=== PATIENT | female | born 1950 | race Caucasian/White ===

== ENCOUNTER 2016-07-20 14:08 | Inpatient (IN) | payer MEDICARE, OTHER ==
[2016-07-20] MEDS ORDERED: ASPIRIN 81 MG TABLET, CHEWABLE PO ONE (14:30)
[2016-07-20] MEDS ORDERED: PREDNISONE 20 MG TABLET PO ONE (14:31)
[2016-07-20] MEDS ORDERED: IPRATROPIUM/ALBUTEROL 0.5-2.5 MG/3 ML AMPUL NEB ONE ×3 (14:31→19:11)
--- NOTE | 2016-07-20 14:31 | ER Document Report ---
ED Medical Screen (RME) - General Stated Complaint: DIFFICULTY BREATHING,CHEST PAIN Mode of Arrival: Wheelchair Information source: Patient Notes: Patient complains of chest pain that started yesterday. Patient reports cough and difficulty breathing. Patient is worried about possible pneumonia. Patient complains of abdominal tenderness that she attributes to coughing. hx: COPD, hypertension, diabetes I have greeted and performed a rapid initial assessment of this patient. A comprehensive ED assessment and evaluation of the patient, analysis of test results and completion of the medical decision making process will be conducted by additional ED providers. TRAVEL OUTSIDE OF THE [place] IN LAST 30 DAYS: No - Related Data Allergies/Adverse Reactions: sulfamethoxazole [From ] Allergy (Verified 07/20/16 14:28) trimethoprim [From Janra] Allergy (Verified 07/20/16 14:28) morphine Adverse Reaction (Verified 07/20/16 14:28) Past Medical History - Past Medical History Cardiac Medical History: Reports: Hx Hypertension Pulmonary Medical History: Reports: Hx Asthma, Hx COPD Endocrine Medical History: Reports: Hx Diabetes Mellitus Type 2 GI Medical History: Reports: Hx Gastroesophageal Reflux Disease Musculoskeltal Medical History: Reports Hx Arthritis Psychiatric Medical History: Reports: Hx Anxiety, Hx Depression Past Surgical History: Reports: Hx Appendectomy, Hx Cholecystectomy, Hx Genitourinary Surgery, Hx Tonsillectomy, Hx Tubal Ligation - Immunizations Hx Diphtheria, Pertussis, Tetanus Vaccination: Yes Physical Exam - Vital signs Vitals: Temp Pulse Resp BP Pulse Ox 98.9 F 98 22 H 219/85 H 91 L 07/20/16 14:07/20/16 14:07/20/16 14:07/20/16 14:07/20/16 14:25 - Respiratory Respiratory status: No respiratory distress Chest status: Pain with cough Breath sounds: Wheezing Course - Vital Signs Vital signs: Temp Pulse Resp BP Pulse Ox 98.9 F 100 22 H 219/85 H 93 07/20/16 14:07/20/16 14:07/20/16 14:26 07/20/16 14:07/20/16 14:26
[2016-07-20 15:36] LABS: ABSOLUTE BASOPHILS # (AUTO) 0.1 10^3/uL (0.0-0.2); ABSOLUTE EOSINOPHILS # (AUTO) 0.1 10^3/uL (0.0-0.6); ABSOLUTE MONOCYTES (AUTO) 0.6 10^3/uL (0.1-1.4); ABSOLUTE NEUT (AUTO) 4.6 10^3/uL (1.7-8.2); BASOPHILS % (AUTO) 1.1 % (0-2); EOSINOPHILS % (AUTO) 0.9 % (0-6); HEMATOCRIT 46.1 % (36.0-47.0); HEMOGLOBIN 15.2 g/dL (12.0-15.5); HGB HCT DIFFERENCE -0.5; LYMPHOCYTES % (AUTO) 15.1 % (13-45); MEAN CORPUSCULAR HEMOGLOBIN 28.7 pg (27.0-33.4); MEAN CORPUSCULAR VOLUME 87 fl (80-97); RED BLOOD COUNT 5.31 10^6/uL (3.72-5.28); RED CELL DISTRIBUTION WIDTH 13.7 % (11.5-14.0); SEGMENTED NEUTROPHILS % (AUTO) 72.9 % (42-78); WHITE BLOOD COUNT 6.4 10^3/uL (4.0-10.5)
[2016-07-20 15:55] LABS: ALANINE AMINOTRANSFERASE 24 U/L (9-52); ALBUMIN 3.8 g/dL (3.5-5.0); ALKALINE PHOSPHATASE 88 U/L (38-126); ANION GAP 13 (5-19); ASPARTATE AMINO TRANSFERASE 22 U/L (14-36); BILIRUBIN,TOTAL 0.6 mg/dL (0.2-1.3); BLOOD UREA NITROGEN 14 mg/dL (7-20); CALCIUM 9.2 mg/dL (8.4-10.2); CARBON DIOXIDE 28 mmol/L (22-30); CHLORIDE 94 mmol/L (98-107); CREATINE KINASE 91 U/L (30-135); CREATININE RESULT 0.66 mg/dL (0.52-1.25); LIPASE 52.8 U/L (23-300); MAGNESIUM 1.8 mg/dL (1.6-2.3); SODIUM 134.6 mmol/L (137-145); TOTAL PROTEIN 6.2 g/dL (6.3-8.2)
[2016-07-20 16:07] LABS: CREATINE KINASE MB 1.14 ng/mL (<4.55); GLUCOSE 442 mg/dL (75-110); TROPONIN I 0.013 ng/mL
[2016-07-20 16:30] LABS: APPEARANCE,URINE CLEAR; GLUCOSE, URINE 500 mg/dL (NEGATIVE)
[2016-07-20 16:31] LABS: BILIRUBIN,URINE NEGATIVE (NEGATIVE); KETONES,URINE NEGATIVE (NEGATIVE); LEUKOCYTE ESTERASE,URINE TRACE (NEGATIVE); NITRITE,URINE POSITIVE (NEGATIVE); PROTEIN,URINE NEGATIVE (NEGATIVE); URINE SPECIFIC GRAVITY 1.029; UROBILINOGEN,URINE NEGATIVE mg/dL (<2.0)
[2016-07-20 16:32] LABS: HYALINE CASTS, URINE 0-1 /LPF; RBC,URINE RARE /HPF
[2016-07-20 16:33] LABS: BACTERIA,URINE 3+ /HPF
[2016-07-20] MEDS ORDERED: INSULIN REG, HUMAN 100 UNIT/ML 3 ML VIAL (PYX) SUBCUT ONE (17:14)
--- NOTE | 2016-07-20 17:23 | ER Document Report ---
ED General - General Chief Complaint: Abdominal Pain Stated Complaint: DIFFICULTY BREATHING,CHEST PAIN Time seen by provider: 16:47 Mode of Arrival: Wheelchair Information source: Patient TRAVEL OUTSIDE OF THE [place] IN LAST 30 DAYS: No - HPI Onset: Last week Onset/Duration: Gradual Severity: Mild Associated symptoms: Chest pain, Headache. denies: Chills, Diarrhea, Earache, Nausea Exacerbated by: Coughing Recently seen / treated by doctor: No Notes: Patient with long-standing history of hypertension and diabetes presents with a wide variety complaints. She states that her blood sugars have been running elevated, cut she has ran out of and has not been taking her insulin now for over a month. Reports some chronic abdominal pain related to a surgical procedure year ago where they fixed an umbilical hernia and removed her appendix and it sounds like may have removed an ovarian cyst up in [place]. The patient states the abdominal pain only occurs when she has a coughing fit which is worse and she ran out of her albuterol. She does continue to smoke. She reports associated with a cough she's had a minor amount of chest pain, but denies any exertional component or radiation of chest pain. She reports no nausea or vomiting. She denies a current headache, but states she has occasional headaches that seem to respond to taking what is left of her antihypertensive medications. She has not had her antihypertensive medication consistently for several months and reports running out of her Glucophage also. She states her cough is productive of minimal amount of yellowish phlegm. She also reports a generalized weakness without any focal unilateral findings. - Related Data Allergies/Adverse Reactions: sulfamethoxazole [From Septra] Allergy (Verified 07/20/16 14:28) trimethoprim [From Septra] Allergy (Verified 07/20/16 14:28) morphine Adverse Reaction (Verified 07/20/16 14:28) Past Medical History - General Information source: Patient - Social History Smoking Status: Current Some Day Smoker Chew tobacco use (# tins/day): No Frequency of alcohol use: None Drug Abuse: None Family History: Reviewed & Not Pertinent Patient has suicidal ideation: No Patient has homicidal ideation: No - Past Medical History Cardiac Medical History: Reports: Hx Hypertension Pulmonary Medical History: Reports: Hx Asthma, Hx COPD Endocrine Medical History: Reports: Hx Diabetes Mellitus Type 2 Renal/ Medical History: Denies: Hx Peritoneal Dialysis GI Medical History: Reports: Hx Gastroesophageal Reflux Disease Musculoskeltal Medical History: Reports Hx Arthritis Psychiatric Medical History: Reports: Hx Anxiety, Hx Depression Past Surgical History: Reports: Hx Appendectomy, Hx Cholecystectomy, Hx Genitourinary Surgery, Hx Tonsillectomy, Hx Tubal Ligation - Immunizations Hx Diphtheria, Pertussis, Tetanus Vaccination: Yes Hx Pneumococcal Vaccination: 05/27/13 Review of Systems - Review of Systems Constitutional: Weakness. denies: Chills, Fever EENT: denies: Nose pain Gastrointestinal: Abdominal pain. denies: Nausea, Vomiting Genitourinary: Frequency. denies: Burning Neurological/Psychological: denies: Confusion, Numbness -: Yes All other systems reviewed and negative Physical Exam - Vital signs Vitals: Temp Pulse Resp BP Pulse Ox 98.9 F 98 22 H 219/85 H 91 L 07/20/16 14:25 07/20/16 14:25 07/20/16 14:25 07/20/16 14:25 07/20/16 14:25 Interpretation: Normal - General General appearance: Alert In distress: None - HEENT Head: Normocephalic, Atraumatic Eyes: Normal Pupils: PERRL - Respiratory Respiratory status: No respiratory distress. No: Respiratory distress, Depressed respirations, Labored, Pursed lip breathing Chest status: Tender - Mild tenderness to the lower costal margin bilaterally which extends to the upper abdomen Breath sounds: Wheezing Chest palpation: Normal - Cardiovascular Rhythm: Regular Heart sounds: Normal auscultation Murmur: No - Abdominal Inspection: Obese Distension: No distension Bowel sounds: Normal Tenderness: Tender - Mildly tender through the upper abdominal region under the costal margin. Surgical scars are well-healed. Patient can be distracted away from her pain on exam. There is no obvious hepatosplenomegaly. No pulsatile mass. Organomegaly: No organomegaly - Back Back: Normal, Nontender - Extremities General upper extremity: Normal inspection, Nontender, Normal color, Normal ROM , Normal temperature General lower extremity: Normal inspection, Nontender, Normal color, Normal ROM , Normal temperature, Normal weight bearing. No: Gaby's sign Notes: Trace bilateral lower extremity edema. Negative Homans no palpable cord. - Neurological Neuro grossly intact: Yes Cognition: Normal Orientation: AAOx4 [place] Coma Scale Eye Opening: Spontaneous Good Coma Scale Verbal: Oriented Good Coma Scale Motor: Obeys Commands Good Coma Scale Total: 15 Speech: Normal Motor strength normal: LUE, RUE, LLE, RLE Sensory: Normal - Psychological Associated symptoms: Normal affect, Normal mood - Skin Skin Temperature: Warm Skin Moisture: Dry Skin Color: Normal Course - Re-evaluation Re-evalutation: 07/20/16 17:31 Patient previously received prednisone by mouth and albuterol nebulizer treatment. Patient was given regular insulin 15 units subcutaneous. Patient was given a DuoNeb treatment with improvement in her wheezing on repeat exam. 07/20/16 20:06 Blood sugar is improved after regular insulin into the 300s. Repeat lung auscultation patient still has scant wheezing, but she denies any dyspnea. Oxygen saturations on room air or 88% consistently. Patient's asked to cough and again her O2 sat maintained at 88-89%. Patient was counseled about quitting smoking. Unable to send patient home due to hypoxia. She remains alert. Patient will be placed up on 2 L nasal cannula oxygen and a blood gas will be obtained. Patient given Keflex to cover urinary tract infection and bronchitis. There is no evidence for pneumonia or congestive heart failure. BNP is ordered. Call made to hospitalist for admission. Discussed admission with patient and she was in agreement. 07/20/16 20:[address] Puente who is reviewed records. - Vital Signs Vital signs: Temp Pulse Resp BP Pulse Ox 99.4 F 95 16 161/67 H 96 07/20/16 18:14 07/20/16 18:14 07/20/16 18:35 07/20/16 18:14 07/20/16 18:35 - Laboratory Result Diagrams: 07/20/16 14:45 07/20/16 14:45 Laboratory results interpreted by me: 07/20/16 07/20/16 07/20/16 14:45 14:45 14:45 RBC 5.31 H Plt Count 143 L Sodium 134.6 L Chloride 94 L Glucose 442 H* POC Glucose Total Protein 6.2 L Urine Glucose (UA) 500 H Urine Nitrite POSITIVE H Ur Leukocyte Esterase TRACE H 07/20/16 18:56 RBC Plt Count Sodium Chloride Glucose POC Glucose 366 H Total Protein Urine Glucose (UA) Urine Nitrite Ur Leukocyte Esterase - EKG Interpretation by Me Rate: Normal Rhythm: NSR Heart block present: No: 1st Degree, Mobitz 1, Mobitz 2, CHB (3rd degree block) Additional EKG results interpreted by me: 07/20/16 17:35 EKG as interpreted by me showed normal sinus rhythm rate of 93. There is no gross evidence for acute WI or ischemia noted. There is no change from previous EKG from 11/13/15. 07/20/16 17:36 Critical Care Note - Critical Care Note Total time excluding time spent on procedures (mins): 34 Discharge - Discharge Clinical Impression: Bronchitis with bronchospasm, COPD exacerbation, Hypoxia, Hyperglycemia, UTI ( urinary tract infection) Disposition: ADMITTED INPATIENT Admitting Provider: Hospitalist Unit Admitted: IMCU
[2016-07-20] MEDS ORDERED: CEPHALEXIN 500 MG CAPSULE PO ONE (17:59)
[2016-07-20] MEDS ORDERED: ALBUTEROL SULFATE HFA (90 MCG/PUFF) 8 GM MDI (1 MDI/ER DISP) IH SCH (18:00)
--- NOTE | 2016-07-20 18:06 | EKG REPORT ---
SEVERITY:- ABNORMAL ECG - SINUS RHYTHM PROBABLE LEFT ATRIAL ABNORMALITY PROBABLE LVH WITH SECONDARY REPOL ABNRM : Confirmed by: Jeanna Varela MD 20-Jul-2016 18:04:16
[2016-07-20] MEDS ORDERED: LISINOPRIL 10 MG TABLET PO ONE (21:21)
[2016-07-20 21:41] LABS: ARTERIAL BLOOD BASE EXCESS 4.2 mmol/L; ARTERIAL BLOOD O2 SATURATION 93.4 % (94-98)
[2016-07-20] MEDS ORDERED: ALBUTEROL SULFATE HFA (90 MCG/PUFF) 8 GM MDI (1 MDI/ER DISP) IH PRN (22:00)
[2016-07-21 03:04] LABS: VENOUS BLOOD BASE EXCESS 2.6 mmol/L; VENOUS BLOOD HCO3 28.8 mmol/L (20-32); VENOUS BLOOD PCO2 50.2 mmHg (35-63); VENOUS BLOOD PH 7.38 (7.30-7.42)
[2016-07-21] MEDS ORDERED: DEXTROSE 40% GEL 15 GM TUBE PO PRN ×3 (04:41→15:04)
[2016-07-21] MEDS ORDERED: DEXTROSE 50%-WATER 25 GM/50 ML DISP.SYRIN IV PRN ×2 (04:41)
[2016-07-21] MEDS ORDERED: GLUCAGON,HUMAN RECOMB 1 MG INJ IM PRN ×2 (04:41→15:04)
[2016-07-21] MEDS ORDERED: GUAIFENESIN SYRP 200 MG/10 ML UDC PO PRN (04:47)
[2016-07-21] MEDS ORDERED: ALBUTEROL SULFATE 0.083% NEB 2.5 MG/3 ML AMPUL NEB PRN (04:47)
[2016-07-21] MEDS ORDERED: ACETAMINOPHEN 325 MG TABLET PO PRN (04:47)
--- NOTE | 2016-07-21 05:00 | PDOC H&P ---
History of Present Illness Admission Date/PCP: 07/20/16 21:20 No PCP Patient complains of: sob, abd pain History of Present Illness: DIA RAMIREZ is a 65 year old morbidly obese female with underlying hypertension, type I diabetes mellitus, hyperlipidemia, asthma, non- home O2 dependent COPD, chronic anxiety, occasional UTIs, with known noncompliance with medications, who presents to the emergency room for evaluation of above complaint. Patient has been discussed with emergency room physician who evaluated the patient. Patient is a rambling, rather difficult historian, who frequently diverts her train of thought from my line of questioning. Rather odd affect at times also. Very difficult getting an accurate history from the patient. As best I can determine, Several day history of a cough. Initially productive of sputum, but over the last day or so mostly dry. Subjective fever and chills. Positive nausea but no vomiting. Mild dysuria, but no diarrhea. Little change in her chronic abdominal pain, which she seems to think originates after undergoing emergency surgery for incarcerated umbilical hernia , with, by her account, concomitant appendectomy and removal of an ovarian "tumor" in 2014. Was noted to be hypoxic, O2 saturation 88%, on room air in the emergency room. Has been off most, if not all, her medications for, as best I can determine at least several weeks, and probably several months. Laboratory results are listed in [facility] and are reviewed. X-ray summary results are listed below, with full report(s) reviewed. . EKG reviewed. November 12 of last year. Social history/personal habits: . Lives alone. Retired. Half-pack of cigarettes per day. Rare alcohol. No illicit drug use. Allergies/adverse reactions are listed in [facility] and are reviewed. Home medications Home medications initially autopopulated into [facility] may not accurately reflect patient's true medications, dosages, and/or frequencies. Unfortunately, patient uncertain of virtually all her medications/dosages/ frequencies. Order has been entered for staff to contact family, outpatient physician, and/or pharmacy to more accurately determine medications, dosages, and frequencies and to contact physician when that has been accomplished. REVIEW OF SYSTEMS: Constitutional: See history and present illness. Eyes: Wears glasses. ENT: Occasional mild dysphagia without aspiration. No hearing problems or complaints. Pulmonary: See history and present illness. Cardiovascular: No current complaints, including chest pain. Gastrointestinal: See history and present illness. Skin: No current complaints, including rashes. Hematologic: No unusual easy bruising or bleeding. Neurologic: No current complaints, including numbness or tingling. Musculoskeletal: Joint pain from arthritis. Psychiatric: Anxiety Endocrine: No current complaints, including polyuria. Genitourinary: No current complaints, including dysuria. 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 Temperature 98.5. Pulse 88 and regular. Respirations are 16 and unlabored. 96 % saturation on 1/2 L oxygen per nasal cannula. 88-90% on room air. Blood pressure 170/78 on the left, manually; 164/82 on the right, manually. Morbidly obese chronically ill somewhat disheveled female who nevertheless appears a bit younger than her stated age. Pleasant awake alert and cooperative. Rather anxious individual, although no jaron agitation. Skin is warm and dry. No grossly obvious evidence of rash in areas of skin examined. No subcutaneous nodules palpated. ENT: Hearing grossly normal Mildly hard of hearing to normal conversation. Tongue midline on protrusion pink and slightly moist. Eyes: No scleral icterus. Pupils equal and reactive to light at 4 mm. [place] conjunctivae. Neck is supple and nontender to gentle active range of motion and palpation. Midline trachea. No palpable thyroid nodule mass enlargement or tenderness. Lymphatic: No palpable cervical or clavicular nodes. Neck and lymphatic exams limited by patient body habitus. Psychiatric: At best poor to fair insight into acute and chronic medical issues. Oriented to time location and why here. Please see comments in history and present illness. Lungs: Auscultation reveals equal breath sounds bilaterally. No use of accessory respiratory muscles. Brief mild expiratory wheezing bilaterally. Cardiovascular: Heart regular rate and rhythm, without gallop murmur or rub. No carotid or abdominal aortic bruits. No ankle or pedal edema. Faintly palpable dorsalis pedis pulses. Abdomen: soft, quite obese, nontender with positive bowel sounds. Unable to adequately evaluate abdomen for masses or organomegaly due to body habitus. Extremities: Feet are warm and dry. No calf tenderness to compression. No grossly obvious visual evidence of calf swelling. Gentle manipulation of lower extremities fails to reveal any obvious evidence of injury or instability to knees hips or ankles, although slight decreased range of motion right knee, due to chronic stiffness, according to patient.. Neurologic: Moves all 4 extremities grossly normally. Patellar reflexes absent. Absent Babinski. Light touch is intact at feet. Dorsiflexion and plantarflexion of feet 5 / 5 and symmetric. Past Medical History Cardiac Medical History: Reports: Hyperlipidema, Hypertension Denies: Congestive Heart Failure, DVT, Myocardial Infarction, Pulmonary Embolism Pulmonary Medical History: Reports: Asthma, Chronic Obstructive Pulmonary Disease (COPD), Sleep Apnea Neurological Medical History: Denies: Hemorrhagic CVA, Ischemic CVA, Seizures Endocrine Medical History: Reports: Diabetes Mellitus Type 1 Denies: Hyperthyroidism, Hypothyroidism GI Medical History: Reports: Gastroesophageal Reflux Disease Denies: Cirrhosis, Hepatitis Musculoskeltal Medical History: Reports: Arthritis Psychiatric Medical History: Reports: General Anxiety Disorder, Tobacco Dependency Denies: Alcohol Dependency, Depression, Substance Abuse Infectious Medical History: Denies: Hepatitis B, Hepatitis C Past Surgical History Past Surgical History: Reports: Appendectomy, Cholecystectomy, Tonsillectomy, Tubal Ligation Social History Information Source: Patient, Emergency Med Personnel, [facility] Records Smoking Status: Current Every Day Smoker Cigarettes Packs Per Day: 0.5 Number of Years Smokin Last Time Smoked: 07/19/16 Frequency of Alcohol Use: Rare Hx Recreational Drug Use: No Hx Prescription Drug Abuse: No - Advance Directive Resuscitation Status: Full Code Surrogate healthcare decision maker:: Uncertain Family History Family History: Reviewed & Not Pertinent Parental Family History Reviewed: Yes Children Family History Reviewed: Yes Sibling(s) Family History Reviewed.: Yes Medication/Allergy Home Medications: Cyclobenzaprine HCl [Flexeril 5 mg Tablet] 5 mg PO BIDP PRN 07/21/16 Oxycodone HCl/Acetaminophen [Percocet 5-325 mg Tablet] 1 tab PO BIDP PRN Sertraline HCl [Zoloft] 2 tab PO DAILY 07/21/16 Allergies/Adverse Reactions: sulfamethoxazole [From Septra] Allergy (Verified 07/20/16 14:28) trimethoprim [From Septra] Allergy (Verified 07/20/16 14:28) morphine Adverse Reaction (Verified 07/20/16 14:28) Physical Exam Vital Signs: Temp Pulse Resp BP Pulse Ox 98.5 F 92 22 H 194/67 H 96 07/21/16 02:34 07/21/16 02:34 07/21/16 02:34 07/21/16 02:34 07/21/16 02:34 Results Laboratory Results: 07/21/16 02:51 VBG pH 7.38 VBG pCO2 50.2 VBG HCO3 28.8 VBG Base Excess 2.6 Impressions: Chest X-Ray 07/20/16 14:30 IMPRESSION: No significant interval change. No acute findings. Other findings as noted above. Assessment & Plan - Diagnosis (1) Abnormal urinalysis Is this a current diagnosis for this admission?: YesPlan: Urine culture. (2) COPD exacerbation Is this a current diagnosis for this admission?: YesPlan: Patient will be admitted under COPD exacerbation protocol. Incentive spirometry twice a day. Scheduled DuoNeb's. PRN albuterol nebs daily prednisone. Prevacid for gastritis prophylaxis. Antibiotics will consist of Rocephin and intravenous Zithromax. I strongly encouraged patient to notify staff should patient feel that respiratory status is worsening. Patient is a full code. I have strongly encouraged patient not to get out of bed without notifying staff , I have strongly urged patient to be careful getting out of bed, to avoid a fall with injury. Knee high SCDs for DVT prophylaxis, along with subcutaneous Lovenox Impression and plans were discussed with patient, who concurs. Time spent in evaluation and management of patient: 52 minutes. (3) Hyperglycemia Is this a current diagnosis for this admission?: YesPlan: Accu-Cheks with appropriate sliding scale coverage. (4) Noncompliance Is this a current diagnosis for this admission?: Yes (5) CHANELLE (obstructive sleep apnea) Is this a current diagnosis for this admission?: YesPlan: C Pap - Inpatient Certification Based on my medical assessment, after consideration of the patient's comorbidities, presenting symptoms, or acuity I expect that the services needed warrant INPATIENT care.: Yes I certify that my determination is in accordance with my understanding of Medicare's requirements for reasonable and necessary INPATIENT services [42 CFR 412.3e].: Yes Medical Necessity: Need Close Monitoring Due to Risk of Patient Decompensation, Need For Continuous Telemetry Monitoring, Need for Nebulizer Therapy and Monitoring of Response, Need for IV Antibiotics, Risk of Diagnosis Which Will Require Inpatient Eval/Care/Monitoring Post Hospital Care: D/C or Transfer Summary
[2016-07-21] MEDS: LANSOPRAZOLE 30 MG TAB.RAP.DR PO SCH (06:09)
[2016-07-21 06:33] LABS: ABSOLUTE LYMPHOCYTES (AUTO) 0.9 10^3/uL (0.5-4.7); ABSOLUTE MONOCYTES (AUTO) 0.6 10^3/uL (0.1-1.4); ABSOLUTE NEUT (AUTO) 5.1 10^3/uL (1.7-8.2); BASOPHILS % (AUTO) 0.2 % (0-2); EOSINOPHILS % (AUTO) 0.1 % (0-6); HEMATOCRIT 41.8 % (36.0-47.0); HEMOGLOBIN 14.1 g/dL (12.0-15.5); HGB HCT DIFFERENCE 0.5; LYMPHOCYTES % (AUTO) 13.5 % (13-45); MEAN CORPUSCULAR HEMOGLOBIN 29.4 pg (27.0-33.4); MEAN CORPUSCULAR HGB CONC 33.8 g/dL (32.0-36.0); MEAN CORPUSCULAR VOLUME 87 fl (80-97); MONOCYTES % (AUTO) 8.9 % (3-13); RED CELL DISTRIBUTION WIDTH 13.8 % (11.5-14.0); SEGMENTED NEUTROPHILS % (AUTO) 77.3 % (42-78); WHITE BLOOD COUNT 6.6 10^3/uL (4.0-10.5)
[2016-07-21 06:46] LABS: ANION GAP 10 (5-19); BLOOD UREA NITROGEN 25 mg/dL (7-20); CALCIUM 9.1 mg/dL (8.4-10.2); CARBON DIOXIDE 28 mmol/L (22-30); CHLORIDE 97 mmol/L (98-107); CREATININE RESULT 0.62 mg/dL (0.52-1.25); SODIUM 135.1 mmol/L (137-145)
[2016-07-21 06:58] LABS: GLUCOSE 459 mg/dL (75-110)
[2016-07-21] MEDS: IPRATROPIUM/ALBUTEROL 0.5-2.5 MG/3 ML AMPUL NEB SCH ×3 (08:33→21:03)
[2016-07-21] MEDS: HYDROCHLOROTHIAZIDE 12.5 MG CAPSULE PO SCH (09:21)
[2016-07-21] MEDS: ENOXAPARIN SODIUM INJ 40 MG/0.4 ML DISP.SYRIN SUBCUT SCH (09:23)
[2016-07-21] MEDS ORDERED: INSULIN REG, HUMAN 100 UNIT/ML 3 ML VIAL (PYX) SUBCUT ONE ×2 (09:30→13:30)
[2016-07-21] MEDS ORDERED: PREDNISONE 20 MG TABLET PO SCH (10:00)
[2016-07-21] MEDS: CEFTRIAXONE 1 GM/D5W RTU 50 ML IV SCH (11:17)
[2016-07-21] MEDS ORDERED: HUM INSULIN NPH/REG INSULIN HM 100 UNIT/1 ML 3 ML SUBCUT ONE (12:15)
[2016-07-21] MEDS: AZITHROMYCIN 500 MG in DEXTROSE 5%-WATER 250 ML IV SCH (12:51)
[2016-07-21] MEDS ORDERED: DEXTROSE 40% GEL 15 GM TUBE X 2 PO PRN (15:04)
[2016-07-21] MEDS ORDERED: DEXTROSE 50%-WATER SYRINGE 25 GM/50 ML DOSE IV PRN (15:04)
[2016-07-21] MEDS ORDERED: DEXTROSE 50%-WATER SYRINGE 12.5 GM/25 ML DOSE IV PRN (15:04)
[2016-07-21] MEDS: INSULIN REG, HUMAN 100 UNIT/ML 3 ML VIAL (PYX) SUBCUT PRN ×2 (15:49→22:04)
--- NOTE | 2016-07-21 16:29 | PDOC PROGRESS REPORT ---
Subjective Progress Note for:: 07/21/16 Subjective:: This is a 65-year-old woman with a history of obesity hypertension diabetes hyperlipidemia asthma COPD D occasional UTIs and noncompliance with medications. She presented to the ED with a several day history of productive cough and subjective fever and chills. Had nausea but no vomiting. She had mild dysuria. She has a chronic degree of abdominal pain. She has been off of most of not all of her home medications for at least several months. In the ED she was noted to be hypoxic with an O2 saturation of 88%. Her CBC was unremarkable. Her chemistries were remarkable mainly for a glucose of 459. Chest x-ray showed no acute changes. She was admitted with a diagnosis of acute exacerbation of COPD and an abnormal urinalysis. Physical Exam Vital Signs: Temp Pulse Resp BP Pulse Ox 98.4 F 83 20 169/68 H 90 L 07/21/16 15:33 07/21/16 15:33 07/21/16 15:33 07/21/16 15:33 07/21/16 15:33 Intake & Output 07/20/16 07/21/16 07/22/16 06:59 06:59 06:59 Intake Total 600 458 Output Total 150 Balance 600 308 Weight 142.8 kg General appearance: PRESENT: no acute distress, obese Head exam: PRESENT: atraumatic, normocephalic Eye exam: PRESENT: conjunctiva pink, EOMI, PERRLA. ABSENT: scleral icterus Ear exam: PRESENT: normal external ear exam Mouth exam: PRESENT: moist, tongue midline Neck exam: ABSENT: carotid bruit, JVD, lymphadenopathy, thyromegaly Respiratory exam: PRESENT: wheezes, other - coarse breath sounds. ABSENT: rales , rhonchi Cardiovascular exam: PRESENT: RRR. ABSENT: diastolic murmur, rubs, systolic murmur Pulses: PRESENT: normal dorsalis pedis pul Vascular exam: PRESENT: normal capillary refill GI/Abdominal exam: PRESENT: normal bowel sounds, soft. ABSENT: distended, guarding, mass, organolmegaly, rebound, tenderness Rectal exam: PRESENT: deferred Extremities exam: PRESENT: full ROM. ABSENT: calf tenderness, clubbing, pedal edema Neurological exam: PRESENT: alert, awake, oriented to person, oriented to place , oriented to time, oriented to situation, other - moves all fours with equal and symmetric strength. ABSENT: motor sensory deficit Psychiatric exam: PRESENT: other - strange affect. ABSENT: homicidal ideation, suicidal ideation Skin exam: PRESENT: dry, intact, warm. ABSENT: cyanosis, rash Results Laboratory Results: 07/21/16 06:14 07/21/16 06:14 07/21/16 07/21/16 06:14 06:14 WBC 6.6 RBC 4.80 Hgb 14.1 Hct 41.8 MCV 87 MCH 29.4 MCHC 33.8 RDW 13.8 Plt Count 144 L Seg Neutrophils % 77.3 Lymphocytes % 13.5 Monocytes % 8.9 Eosinophils % 0.1 Basophils % 0.2 Absolute Neutrophils 5.1 Absolute Lymphocytes 0.9 Absolute Monocytes 0.6 Absolute Eosinophils 0.0 Absolute Basophils 0.0 Sodium 135.1 L Potassium 4.0 Chloride 97 L Carbon Dioxide 28 Anion Gap 10 BUN 25 H Creatinine 0.62 Est GFR ( Amer) > 60 Est GFR (Non-Af Amer) > 60 Glucose 459 H* Calcium 9.1 Impressions: Chest X-Ray 07/20/16 14:30 IMPRESSION: No significant interval change. No acute findings. Other findings as noted above. Assessment & Plan - Diagnosis (1) COPD exacerbation Is this a current diagnosis for this admission?: YesPlan: Continue IV antibiotics, oral corticosteroids, nebulized bronchodilators, and O2 supplementation as needed. (2) Abnormal urinalysis Is this a current diagnosis for this admission?: YesPlan: Slightly positive UA. Await culture and sensitivity. (3) Diabetes Qualifiers: Diabetes mellitus type: type 2 Diabetes mellitus complication status: with unspecified complications Diabetes mellitus prison insulin use: unspecified prison insulin use status Qualified Code(s): E11.8 - Type 2 diabetes mellitus with unspecified complications Is this a current diagnosis for this admission?: YesPlan: Severe hyperglycemia in the 400s. History of medication noncompliance. I am not certain what medicines she was on for this. Currently, prednisone for her acute exacerbation of COPD is aggravating the diabetes. She is on an insulin sliding scale. I will add Lantus. The prednisone is in wean. (4) CHANELLE (obstructive sleep apnea) Is this a current diagnosis for this admission?: YesPlan: CPAP. (5) Morbid obesity with BMI of 45.0-49.9, adult Is this a current diagnosis for this admission?: Yes (6) Abdominal pain Is this a current diagnosis for this admission?: YesPlan: The patient has chronic abdominal pain. Currently this is a minimal problem. We will simply observe. (7) Noncompliance Is this a current diagnosis for this admission?: YesPlan: History of medication noncompliance. - Time Time Spent with patient: 25-34 minutes
[2016-07-21] MEDS ORDERED: LISINOPRIL 10 MG TABLET PO ONE (17:00)
[2016-07-21] MEDS: PREDNISONE 20 MG TABLET PO SCH (21:14)
[2016-07-21] MEDS: INSULIN GLARGINE,HUM.REC.ANLOG 300 UNIT/3 ML INSULN.PEN SUBCUT SCH (22:05)
[2016-07-22 04:46] LABS: ABSOLUTE BASOPHILS # (AUTO) 0.1 10^3/uL (0.0-0.2); ABSOLUTE EOSINOPHILS # (AUTO) 0.1 10^3/uL (0.0-0.6); ABSOLUTE LYMPHOCYTES (AUTO) 1.1 10^3/uL (0.5-4.7); ABSOLUTE MONOCYTES (AUTO) 0.5 10^3/uL (0.1-1.4); ABSOLUTE NEUT (AUTO) 6.4 10^3/uL (1.7-8.2); BASOPHILS % (AUTO) 0.7 % (0-2); EOSINOPHILS % (AUTO) 1.1 % (0-6); HEMATOCRIT 42.1 % (36.0-47.0); HEMOGLOBIN 14.3 g/dL (12.0-15.5); HGB HCT DIFFERENCE 0.8; MEAN CORPUSCULAR HEMOGLOBIN 29.3 pg (27.0-33.4); MEAN CORPUSCULAR HGB CONC 33.9 g/dL (32.0-36.0); MEAN CORPUSCULAR VOLUME 86 fl (80-97); MONOCYTES % (AUTO) 6.7 % (3-13); RED BLOOD COUNT 4.88 10^6/uL (3.72-5.28); RED CELL DISTRIBUTION WIDTH 13.7 % (11.5-14.0); SEGMENTED NEUTROPHILS % (AUTO) 78.5 % (42-78); WHITE BLOOD COUNT 8.1 10^3/uL (4.0-10.5)
[2016-07-22 04:49] LABS: ANION GAP 10 (5-19); BLOOD UREA NITROGEN 28 mg/dL (7-20); CALCIUM 9.2 mg/dL (8.4-10.2); CARBON DIOXIDE 30 mmol/L (22-30); CHLORIDE 97 mmol/L (98-107); CREATININE RESULT 0.62 mg/dL (0.52-1.25); GLUCOSE 340 mg/dL (75-110); POTASSIUM 4.2 mmol/L (3.6-5.0); SODIUM 137.3 mmol/L (137-145)
[2016-07-22] MEDS: LANSOPRAZOLE 30 MG TAB.RAP.DR PO SCH (05:04)
[2016-07-22] MEDS: ENOXAPARIN SODIUM INJ 40 MG/0.4 ML DISP.SYRIN SUBCUT SCH (07:33)
[2016-07-22] MEDS: HYDROCHLOROTHIAZIDE 12.5 MG CAPSULE PO SCH (07:33)
[2016-07-22] MEDS: INSULIN REG, HUMAN 100 UNIT/ML 3 ML VIAL (PYX) SUBCUT PRN ×4 (07:44→22:08)
[2016-07-22] MEDS: IPRATROPIUM/ALBUTEROL 0.5-2.5 MG/3 ML AMPUL NEB SCH ×3 (08:42→20:44)
[2016-07-22] MEDS: PREDNISONE 20 MG TABLET PO SCH (09:33)
[2016-07-22] MEDS: LISINOPRIL 10 MG TABLET PO SCH (09:33)
[2016-07-22] MEDS: CEFTRIAXONE 1 GM/D5W RTU 50 ML IV SCH (09:34)
[2016-07-22] MEDS: AZITHROMYCIN 500 MG in DEXTROSE 5%-WATER 250 ML IV SCH (10:45)
[2016-07-22] MEDS ORDERED: INSULIN REG, HUMAN 100 UNIT/ML 3 ML VIAL (PYX) SUBCUT ONE (13:40)
--- NOTE | 2016-07-22 16:23 | PDOC PROGRESS REPORT ---
Subjective Progress Note for:: 07/22/16 Subjective:: This is a 65-year-old woman with a history of obesity hypertension diabetes hyperlipidemia asthma COPD D occasional UTIs and noncompliance with medications. She presented to the ED with a several day history of productive cough and subjective fever and chills. Had nausea but no vomiting. She had mild dysuria. She has a chronic degree of abdominal pain. She has been off of most of not all of her home medications for at least several months. In the ED she was noted to be hypoxic with an O2 saturation of 88%. Her CBC was unremarkable. Her chemistries were remarkable mainly for a glucose of 459. Chest x-ray showed no acute changes. She was admitted with a diagnosis of acute exacerbation of COPD and an abnormal urinalysis. Today the patient admits that her breathing is somewhat better. Her cough is not really productive. Her main concern today was about her diabetes control. I started Lantus in addition to the sliding scale insulin but she claims that Lantus has been tried in the past and is difficult for her to regulate. She knows how to monitor but admits that she has not been monitoring at home. Her glucose here has been in the 300s to 400s. After a lengthy discussion, she has agreed to resume her previous metformin and continue an insulin sliding scale. Physical Exam Vital Signs: Temp Pulse Resp BP Pulse Ox 97.9 F 86 16 185/75 H 94 07/22/16 11:36 07/22/16 14:17 07/22/16 14:17 07/22/16 11:36 07/22/16 14:17 Intake & Output 07/21/16 07/22/16 07/23/16 06:59 06:59 06:59 Intake Total 600 1845 695 Output Total 150 Balance 600 1695 695 Weight 142.8 kg 141.3 kg Additional comments: General appearance: PRESENT: no acute distress, obese Head exam: PRESENT: atraumatic, normocephalic Eye exam: PRESENT: conjunctiva pink, EOMI, PERRLA. ABSENT: scleral icterus Ear exam: PRESENT: normal external ear exam Mouth exam: PRESENT: moist, tongue midline Neck exam: ABSENT: carotid bruit, JVD, lymphadenopathy, thyromegaly Respiratory exam: PRESENT: mild wheezes are improved, other - coarse breath sounds. ABSENT: rales, rhonchi Cardiovascular exam: PRESENT: RRR. ABSENT: diastolic murmur, rubs, systolic murmur Pulses: PRESENT: normal dorsalis pedis pul Vascular exam: PRESENT: normal capillary refill GI/Abdominal exam: PRESENT: normal bowel sounds, soft. ABSENT: distended, guarding, mass, organolmegaly, rebound, tenderness Rectal exam: PRESENT: deferred Extremities exam: PRESENT: full ROM. ABSENT: calf tenderness, clubbing, pedal edema Neurological exam: PRESENT: alert, awake, oriented to person, oriented to place , oriented to time, oriented to situation, other - moves all fours with equal and symmetric strength. ABSENT: motor sensory deficit Psychiatric exam: PRESENT: other - strange affect. ABSENT: homicidal ideation, suicidal ideation Skin exam: PRESENT: dry, intact, warm. ABSENT: cyanosis, rash Results Laboratory Results: 07/22/16 04:20 07/22/16 04:20 07/22/16 07/22/16 04:20 04:20 WBC 8.1 RBC 4.88 Hgb 14.3 Hct 42.1 MCV 86 MCH 29.3 MCHC 33.9 RDW 13.7 Plt Count 146 L Seg Neutrophils % 78.5 H Lymphocytes % 13.0 Monocytes % 6.7 Eosinophils % 1.1 Basophils % 0.7 Absolute Neutrophils 6.4 Absolute Lymphocytes 1.1 Absolute Monocytes 0.5 Absolute Eosinophils 0.1 Absolute Basophils 0.1 Sodium 137.3 Potassium 4.2 Chloride 97 L Carbon Dioxide 30 Anion Gap 10 BUN 28 H Creatinine 0.62 Est GFR ( Amer) > 60 Est GFR (Non-Af Amer) > 60 Glucose 340 H Calcium 9.2 Impressions: Chest X-Ray 07/20/16 14:30 IMPRESSION: No significant interval change. No acute findings. Other findings as noted above. Assessment & Plan - Diagnosis (1) COPD exacerbation Is this a current diagnosis for this admission?: YesPlan: Continue IV antibiotics, oral corticosteroids, nebulized bronchodilators, and O2 supplementation as needed. (2) Abnormal urinalysis Is this a current diagnosis for this admission?: YesPlan: Slightly positive UA. Await culture and sensitivity. Preliminary report shows gram-negative rods. 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 History of medication noncompliance. I am not entirely certain what medicines she was on for this. She does not want to continue with the Lantus I prescribed yesterday. She agrees to restarting metformin. She accepts an insulin sliding scale. Currently, prednisone for her acute exacerbation of COPD is aggravating the diabetes. I will gradually wean it off. (4) CHANELLE (obstructive sleep apnea) Is this a current diagnosis for this admission?: YesPlan: CPAP. (5) Morbid obesity with BMI of 45.0-49.9, adult Is this a current diagnosis for this admission?: Yes (6) Abdominal pain Is this a current diagnosis for this admission?: YesPlan: The patient has chronic abdominal pain. It is unchanged today. Currently this is a minimal problem. We will simply observe. (7) Noncompliance Is this a current diagnosis for this admission?: YesPlan: History of medication noncompliance. - Time Time Spent with patient: 25-34 minutes
[2016-07-22] MEDS ORDERED: OXYCODONE-ACETAMINOPHEN 5-325 MG TABLET PO PRN (17:02)
[2016-07-22] MEDS: METFORMIN HCL 500 MG TABLET PO SCH (17:20)
[2016-07-22] MEDS: PREDNISONE 10 MG TABLET PO SCH (17:20)
[2016-07-22] MEDS: INSULIN GLARGINE,HUM.REC.ANLOG 300 UNIT/3 ML INSULN.PEN SUBCUT SCH (22:09)
[2016-07-23] MEDS ORDERED: ENALAPRILAT DIHYDRATE INJ/PF 1.25 MG/1 ML SDV IV PRN (00:01)
[2016-07-23] MEDS: LANSOPRAZOLE 30 MG TAB.RAP.DR PO SCH (05:29)
[2016-07-23 05:36] LABS: ANION GAP 10 (5-19); BLOOD UREA NITROGEN 33 mg/dL (7-20); CALCIUM 9.2 mg/dL (8.4-10.2); CARBON DIOXIDE 29 mmol/L (22-30); CHLORIDE 98 mmol/L (98-107); CREATININE RESULT 0.71 mg/dL (0.52-1.25); GLUCOSE 331 mg/dL (75-110); SODIUM 136.6 mmol/L (137-145)
[2016-07-23] MEDS: INSULIN REG, HUMAN 100 UNIT/ML 3 ML VIAL (PYX) SUBCUT PRN ×3 (08:16→22:55)
[2016-07-23] MEDS: ENOXAPARIN SODIUM INJ 40 MG/0.4 ML DISP.SYRIN SUBCUT SCH (08:17)
[2016-07-23] MEDS: METFORMIN HCL 500 MG TABLET PO SCH ×2 (08:18→15:20)
[2016-07-23] MEDS: HYDROCHLOROTHIAZIDE 12.5 MG CAPSULE PO SCH (08:18)
[2016-07-23] MEDS: IPRATROPIUM/ALBUTEROL 0.5-2.5 MG/3 ML AMPUL NEB SCH ×3 (09:00→20:05)
[2016-07-23] MEDS: LISINOPRIL 10 MG TABLET PO SCH (10:14)
[2016-07-23] MEDS: PREDNISONE 10 MG TABLET PO SCH ×2 (10:16→17:13)
[2016-07-23] MEDS: AZITHROMYCIN 500 MG in DEXTROSE 5%-WATER 250 ML IV SCH (10:16)
[2016-07-23] MEDS: CEFTRIAXONE 1 GM/D5W RTU 50 ML IV SCH (10:17)
--- NOTE | 2016-07-23 21:37 | PDOC PROGRESS REPORT ---
Subjective Progress Note for:: 07/23/16 Subjective:: This is a 65-year-old woman with a history of obesity hypertension diabetes hyperlipidemia asthma COPD D occasional UTIs and noncompliance with medications. She presented to the ED with a several day history of productive cough and subjective fever and chills. Had nausea but no vomiting. She had mild dysuria. She has a chronic degree of abdominal pain. She has been off of most of not all of her home medications for at least several months. In the ED she was noted to be hypoxic with an O2 saturation of 88%. Her CBC was unremarkable. Her chemistries were remarkable mainly for a glucose of 459. Chest x-ray showed no acute changes. She was admitted with a diagnosis of acute exacerbation of COPD and an abnormal urinalysis. The patient admits that her breathing is somewhat better. Her cough is not productive. We again reviewed her poor diabetes control. She reiterated her unwillingness to use Lantus. She knows metformin and a sliding scale are not enough to control her sugars. She tells me they have been there very high all her life and that she is not worried about it. We had a discussion about the consequences of long-term hyperglycemia. She knows how to monitor but admits that she has not been monitoring at home. Her glucose here has been in the 300s to 400s. After a lengthy discussion, she only agrees to metformin and continuing an insulin sliding scale. She had similar feelings about hypertension control. She worries about side effects to every medicine I mentioned. She finally did agree to try a clonidine patch. Physical Exam Vital Signs: Temp Pulse Resp BP Pulse Ox 97.8 F 78 22 H 202/82 H 94 07/23/16 20:05 07/23/16 20:05 07/23/16 20:05 07/23/16 20:05 07/23/16 20:05 Intake & Output 07/22/16 07/23/16 07/24/16 06:59 06:59 06:59 Intake Total 1845 1756 960 Output Total 150 Balance 1695 1756 960 Weight 141.3 kg 140.5 kg Additional comments: General appearance: PRESENT: no acute distress, obese Head exam: PRESENT: atraumatic, normocephalic Eye exam: PRESENT: conjunctiva pink, EOMI, PERRLA. ABSENT: scleral icterus Ear exam: PRESENT: normal external ear exam Mouth exam: PRESENT: moist, tongue midline Neck exam: ABSENT: carotid bruit, JVD, lymphadenopathy, thyromegaly Respiratory exam: PRESENT: mild wheezes are improved, other - coarse breath sounds. ABSENT: rales, rhonchi Cardiovascular exam: PRESENT: RRR. ABSENT: diastolic murmur, rubs, systolic murmur Pulses: PRESENT: normal dorsalis pedis pul Vascular exam: PRESENT: normal capillary refill GI/Abdominal exam: PRESENT: normal bowel sounds, soft. ABSENT: distended, guarding, mass, organolmegaly, rebound, tenderness Rectal exam: PRESENT: deferred Extremities exam: PRESENT: full ROM. ABSENT: calf tenderness, clubbing, pedal edema Neurological exam: PRESENT: alert, awake, oriented to person, oriented to place , oriented to time, oriented to situation, other - moves all fours with equal and symmetric strength. ABSENT: motor sensory deficit Psychiatric exam: PRESENT: other - strange affect. ABSENT: homicidal ideation, suicidal ideation Skin exam: PRESENT: dry, intact, warm. ABSENT: cyanosis, rash Results Laboratory Results: 07/22/16 04:20 07/23/16 04:23 07/23/16 04:23 Sodium 136.6 L Potassium 4.0 Chloride 98 Carbon Dioxide 29 Anion Gap 10 BUN 33 H Creatinine 0.71 Est GFR ( Amer) > 60 Est GFR (Non-Af Amer) > 60 Glucose 331 H Calcium 9.2 07/21/16 08:17 Clean Catch Midstream Urine Culture - Final Escherichia Coli Impressions: Chest X-Ray 07/20/16 14:30 IMPRESSION: No significant interval change. No acute findings. Other findings as noted above. Assessment & Plan - Diagnosis (1) COPD exacerbation Is this a current diagnosis for this admission?: YesPlan: Continue IV antibiotics, oral corticosteroids, nebulized bronchodilators, and O2 supplementation as needed. We'll continue to wean her prednisone. (2) Abnormal urinalysis Is this a current diagnosis for this admission?: YesPlan: Slightly positive UA. The culture grew only 10-20,000 colonies of Escherichia coli sensitive to the current ceftriaxone. (3) Diabetes Qualifiers: Diabetes mellitus type: type 2 Diabetes mellitus complication status: with unspecified complications Diabetes mellitus care home insulin use: unspecified care home insulin use status Qualified Code(s): E11.8 - Type 2 diabetes mellitus with unspecified complications; Z79.4 - skilled nursing (current) use of insulin Is this a current diagnosis for this admission?: YesPlan: Severe hyperglycemia was in the 400s, and has improved only to the 300s. History of medication noncompliance. She has refused using Lantus or any other long-acting insulin. She only agrees to metformin and an insulin sliding scale. I will increase her metformin. (4) CHANELLE (obstructive sleep apnea) Is this a current diagnosis for this admission?: YesPlan: CPAP. (5) Morbid obesity with BMI of 45.0-49.9, adult Is this a current diagnosis for this admission?: Yes (6) Abdominal pain Is this a current diagnosis for this admission?: YesPlan: The patient has chronic abdominal pain. It is unchanged today. Currently this is a minimal problem. We will simply observe. (7) Noncompliance Is this a current diagnosis for this admission?: YesPlan: History of medication noncompliance. - Time Time Spent with patient: 25-34 minutes
[2016-07-23] MEDS: INSULIN GLARGINE,HUM.REC.ANLOG 300 UNIT/3 ML INSULN.PEN SUBCUT SCH (22:57)
[2016-07-24] MEDS: LANSOPRAZOLE 30 MG TAB.RAP.DR PO SCH (05:21)
[2016-07-24 05:38] LABS: ANION GAP 9 (5-19); BLOOD UREA NITROGEN 30 mg/dL (7-20); CALCIUM 9.2 mg/dL (8.4-10.2); CARBON DIOXIDE 29 mmol/L (22-30); CHLORIDE 98 mmol/L (98-107); CREATININE RESULT 0.54 mg/dL (0.52-1.25); GLUCOSE 296 mg/dL (75-110); POTASSIUM 4.3 mmol/L (3.6-5.0); SODIUM 135.9 mmol/L (137-145)
[2016-07-24] MEDS: IPRATROPIUM/ALBUTEROL 0.5-2.5 MG/3 ML AMPUL NEB SCH ×2 (07:51→13:29)
[2016-07-24] MEDS: METFORMIN HCL 500 MG TABLET PO SCH ×2 (07:57→15:45)
[2016-07-24] MEDS: HYDROCHLOROTHIAZIDE 12.5 MG CAPSULE PO SCH (07:58)
[2016-07-24] MEDS: INSULIN REG, HUMAN 100 UNIT/ML 3 ML VIAL (PYX) SUBCUT PRN ×2 (08:02→12:32)
[2016-07-24] MEDS: ENOXAPARIN SODIUM INJ 40 MG/0.4 ML DISP.SYRIN SUBCUT SCH (08:03)
[2016-07-24] MEDS ORDERED: PREDNISONE 10 MG TABLET PO SCH (10:00)
[2016-07-24] MEDS ORDERED: CLONIDINE 0.2 MG/24 HR PATCH.TDWK TD SCH (10:00)
[2016-07-24] MEDS: CEFTRIAXONE 1 GM/D5W RTU 50 ML IV SCH (10:07)
[2016-07-24] MEDS: AZITHROMYCIN 500 MG in DEXTROSE 5%-WATER 250 ML IV SCH (10:07)
[2016-07-24] MEDS: LISINOPRIL 10 MG TABLET PO SCH (10:09)
[2016-07-24] MEDS ORDERED: PREDNISONE 20 MG TABLET PO ONE (14:00)
[2016-07-24 15:57] VITALS: BP 168/72
[2016-07-25] MEDS ORDERED: AZITHROMYCIN 250 MG TABLET PO SCH (10:00)
--- NOTE | 2016-07-26 20:13 | PDOC DISCHARGE SUMMARY ---
General - Admit/Disc Date/PCP Admission Date/Primary Care Provider: 07/21/16 04:47 Discharge Date: 07/24/16 - Discharge Diagnosis (1) Accelerated hypertension Is this a current diagnosis for this admission?: Yes (2) COPD exacerbation Is this a current diagnosis for this admission?: Yes (3) Diabetes Is this a current diagnosis for this admission?: Yes (4) UTI (urinary tract infection) Is this a current diagnosis for this admission?: Yes (5) Hyperlipidemia Is this a current diagnosis for this admission?: Yes (6) Morbid obesity with BMI of 45.0-49.9, adult Is this a current diagnosis for this admission?: Yes (7) Noncompliance Is this a current diagnosis for this admission?: Yes (8) CHANELLE (obstructive sleep apnea) Is this a current diagnosis for this admission?: Yes - Additional Information Resuscitation Status: Full Code Discharge Diet: Cardiac, Diabetic Discharge Activity: Activity As Tolerated, Slowly Increase Activity, Walk Frequently Home Medications: Cyclobenzaprine HCl [Flexeril 5 mg Tablet] 5 mg PO BIDP PRN 07/21/16 Oxycodone HCl/Acetaminophen [Percocet 5-325 mg Tablet] 1 tab PO BIDP PRN Sertraline HCl [Zoloft] 2 tab PO DAILY 07/21/16 Albuterol Sulfate [Ventolin 0.083% Neb 2.5 mg/3 mL Ampul] 2.5 mg NEB [id number] PRN #1 pkg 07/24/16 Alcohol Antiseptic Pads [Alcohol Pads] 1 pad TP DAILY PRN #1 pkg 07/24/16 Azithromycin 500 mg PO DAILY #7 tablet 07/24/16 Cefdinir [Omnicef 300 mg Capsule] 1 cap PO BID #14 capsule 07/24/16 Clonidine [Catapres-Tts 2 (0.2 mg/24 Hr) Transderm Ptch] 1 each TD Tu@10 30 Days 07/24/16 Diabetic Supplies,Miscell [Insul-Tote] 1 each ACHS #1 kit 07/24/16 Docusate Sodium [Colace 100 mg Capsule] 100 mg PO BID #60 capsule 07/24/16 Glipizide [Glocotrol 10 Mg Tablet] 10 mg PO DAILY #30 tablet 07/24/16 Hum Insulin NPH/Reg Insulin Hm [Insulin Inj 70-30 (100 Unit/1 ml) 3 ml Vial] 15 unit SUBCUT BID 30 Days 07/24/16 Hydrochlorothiazide [Hydrodiuril 12.5 mg Capsule] 12.5 mg PO QAM capsule Ipratropium/Albuterol Sulfate [Duoneb 3 ml Ampul] 3 ml NEB [id number] #1 pkg Lancets [Easy Touch] 1 each ACHS #1 pkg 07/24/16 Lisinopril [Prinivil 10 mg Tablet] 10 mg PO DAILY #30 tablet 07/24/16 Metformin HCl 1,000 mg PO BID #120 tablet 07/24/16 Prednisone 10 mg PO ASDIR PRN 12 Days 07/24/16 Sennosides [Senna Laxative] 8.6 mg PO QHS #30 tablet 07/24/16 History of Present Illness History of Present Illness: This is a 65-year-old woman with a history of obesity hypertension diabetes hyperlipidemia asthma COPD D occasional UTIs and noncompliance with medications. She presented to the ED with a several day history of productive cough and subjective fever and chills. Had nausea but no vomiting. She had mild dysuria. She has a chronic degree of abdominal pain. She has been off of most of not all of her home medications for at least several months. In the ED she was noted to be hypoxic with an O2 saturation of 88%. Her CBC was unremarkable. Her chemistries were remarkable mainly for a glucose of 459. Chest x-ray showed no acute changes. She was admitted with a diagnosis of acute exacerbation of COPD and an abnormal urinalysis. The patient admits that her breathing is somewhat better. Her cough is not productive. We again reviewed her poor diabetes control. She reiterated her unwillingness to use Lantus. She knows metformin and a sliding scale are not enough to control her sugars. She tells me they have been there very high all her life and that she is not worried about it. We had a discussion about the consequences of long-term hyperglycemia. She knows how to monitor but admits that she has not been monitoring at home. Her glucose here has been in the 300s to 400s. After a lengthy discussion, she only agrees to metformin and continuing an insulin sliding scale. She had similar feelings about hypertension control. She worries about side effects to every medicine I mentioned. She finally did agree to try a clonidine patch. Hospital Course Hospital Course: Patient was admitted and started on Solu-Medrol which was quickly transitioned to oral steroids. This was rapidly tapered in light of patient's increasing blood glucoses and her refusal of insulin, and with improvement of her symptomatology. Patient was also found to have a urinary tract infection with Escherichia coli. Patient was discharged on Omnicef for this. For her diabetes mellitus, patient was continued on metformin and initiated on glipizide maximum dose as well as 7030 insulin. Upon discussion with patient it was found that she refused insulin in the past secondary to cost. Patient education was provided for patient. Prescriptions were given for glucometer and testing strips as well as other supplies. The long-term implications of diabetes mellitus including stroke, heart disease, kidney disease, loss of vision, loss of limb, permanent pain were discussed with patient. Patient was also strongly advised to stop smoking. Patient was ambulated prior to discharge and did not qualify for home oxygen. Patient is discharged in stable condition Physical Exam Vital Signs: Temp Pulse Resp BP Pulse Ox 98.6 F 77 20 168/72 H 93 07/24/16 15:55 07/24/16 15:55 07/24/16 15:55 07/24/16 15:55 07/24/16 15:55 Intake & Output 07/25/16 07/26/16 07/27/16 06:59 06:59 06:59 Intake Total 696 Output Total 100 Balance 596 Exam: General: Awake alert and oriented x3, no acute respiratory distress HEENT: AT/NC, PERRL, EOMI, oropharynx is moist, pink, no scleral icterus, no conjunctival injection Neck: No JVD, trachea midline Chest: Clear to auscultation bilaterally, no wheezes rhonchi or rales CV: Regular rate and rhythm, normal S1 and S2, no murmur, rub, or gallop Abdomen: Soft, nontender to palpation, nondistended, active bowel sounds; no rebound, rigidity, or guarding Extremities: No cyanosis, clubbing or edema Neuro: Cranial nerves II through XII are grossly intact without focal deficits; awake alert and oriented x3 Psych: Anxious and tearful Results Laboratory Results: 07/22/16 04:20 07/24/16 04:59 Impressions: Chest X-Ray 07/20/16 14:30 IMPRESSION: No significant interval change. No acute findings. Other findings as noted above. Qualifiers PATEINT BEING DISCHARGED WITH ANY OF THE FOLLOWING DIAGNOSIS?: No Plan Time Spent: Less than 30 Minutes
== END 2016-07-24 16:32 | disposition home or self-care (01) | DRG 191 ==
LOC: ER 14:08 → UNDOADMIN 21:20 → EH 21:20 → 3S 07-21 02:29 → EH 07-21 02:29 → 3S 07-21 04:47 → EH 07-21 04:47
PROVIDERS: ADMIT Family Medicine; ATTEND Family Medicine
PROC: 5A09457 Assistance with Respiratory Ventilation, 24-96 Consecutive Hours, Continuous Positive Airway Pressure (ICD-10-PCS; principal; 2016-07-21)
DX: J44.1 Chronic obstructive pulmonary disease with (acute) exacerbation (principal); Z68.42 Body mass index [BMI] 45.0-49.9, adult; N39.0 Urinary tract infection, site not specified; E10.65 Type 1 diabetes mellitus with hyperglycemia; I10 Essential (primary) hypertension; G47.33 Obstructive sleep apnea (adult) (pediatric); F17.210 Nicotine dependence, cigarettes, uncomplicated; J45.909 Unspecified asthma, uncomplicated; E78.5 Hyperlipidemia, unspecified; R09.02 Hypoxemia; E66.01 Morbid (severe) obesity due to excess calories; B96.20 Unspecified Escherichia coli [E. coli] as the cause of diseases classified elsewhere; F41.1 Generalized anxiety disorder; R10.9 Unspecified abdominal pain; K21.9 Gastro-esophageal reflux disease without esophagitis; M19.90 Unspecified osteoarthritis, unspecified site; E87.5 Hyperkalemia; F32.9 Major depressive disorder, single episode, unspecified; Z90.49 Acquired absence of other specified parts of digestive tract; Z98.51 Tubal ligation status; Z88.2 Allergy status to sulfonamides; Z88.6 Allergy status to analgesic agent; Z91.19 Patient's noncompliance with other medical treatment and regimen; Z79.4 Long term (current) use of insulin; Z79.84 Long term (current) use of oral hypoglycemic drugs; Z79.899 Other long term (current) drug therapy; Z87.440 Personal history of urinary (tract) infections
CPT/HCPCS: 36415; 36600; 71020; 80048; 80053; 81001; 82550; 82553; 82803; 82962; 83036; 83690; 83735; 84484; 85025; 87040; 87086; 87088; 87186; 93005; 93010; 94640; 94660; 94799; 99291; J0456; J0696; J1650; J1815; J3490; J7060; J7512; J7620

== ENCOUNTER → 2016-09-18 | Outpatient (CLI) | payer MEDICARE, OTHER | LOC: OD 12:57 | PROVIDERS: ATTEND Physician Assistant | DX: M17.0 Bilateral primary osteoarthritis of knee (principal) | CPT/HCPCS: 73565 ==

== ENCOUNTER 2017-01-07 09:19 | Emergency (ER) | payer MEDICARE, OTHER ==
[2017-01-07] MEDS ORDERED: IPRATROPIUM/ALBUTEROL 0.5-2.5 MG/3 ML AMPUL NEB ONE (10:04)
[2017-01-07] MEDS ORDERED: PREDNISONE 20 MG TABLET PO ONE (10:04)
[2017-01-07] MEDS ORDERED: LISINOPRIL 10 MG TABLET PO ONE (10:06)
[2017-01-07] MEDS ORDERED: HYDROCHLOROTHIAZIDE 12.5 MG CAPSULE PO ONE (10:06)
--- NOTE | 2017-01-07 10:08 | ER Document Report ---
ED General - General Chief Complaint: Abdominal Pain Stated Complaint: ABDOMINAL PAIN Time Seen by Provider: 01/07/17 09:36 Mode of Arrival: Ambulatory Information source: Patient Notes: Patient presents complaining of lower abdominal pain for the past 3 days. Patient states that it is a constant pressure. Patient also reports recent problems with constipation although had a small bowel movement yesterday after taking Colace. patient does report nausea but denies any vomiting or diarrhea. Patient does complain of pressure with voiding and urinary frequency. Patient states that she has been attempting to treat her high blood pressure and diabetes through diet changes. Patient states she has been noncompliant with her medications for several weeks. TRAVEL OUTSIDE OF THE [place] IN LAST 30 DAYS: No - HPI Onset: Other - 3 days Onset/Duration: Persistent Quality of pain: Pressure Pain Level: 3 Associated symptoms: Nonproductive cough, Earache, Nausea. denies: Chest pain, Diarrhea, Fever, Vomiting, Rhinnorhea Exacerbated by: Denies Relieved by: Denies Similar symptoms previously: Yes Recently seen / treated by doctor: No - Related Data Allergies/Adverse Reactions: sulfamethoxazole [From Septra] Allergy (Verified 01/07/17 09:26) trimethoprim [From Septra] Allergy (Verified 01/07/17 09:26) morphine Adverse Reaction (Verified 01/07/17 09:26) Past Medical History - General Information source: Patient - Social History Smoking Status: Current Every Day Smoker Frequency of alcohol use: None Drug Abuse: None Occupation: none Lives with: Alone Family History: Reviewed & Not Pertinent - Past Medical History Cardiac Medical History: Reports: Hx Hypercholesterolemia, Hx Hypertension Denies: Hx Congestive Heart Failure, Hx DVT, Hx Heart Attack, Hx Pulmonary Embolism Pulmonary Medical History: Reports: Hx Asthma, Hx COPD, Hx Sleep Apnea Neurological Medical History: Denies: Hx Seizures Endocrine Medical History: Reports: Hx Diabetes Mellitus Type 1, Hx Diabetes Mellitus Type 2. Denies: Hx Hyperthyroidism, Hx Hypothyroidism Renal/ Medical History: Denies: Hx Peritoneal Dialysis GI Medical History: Reports: Hx Gastroesophageal Reflux Disease. Denies: Hx Cirrhosis, Hx Hepatitis Musculoskeltal Medical History: Reports Hx Arthritis Psychiatric Medical History: Reports: Hx Anxiety Denies: Hx Depression Infectious Medical History: Denies: Hx Hepatitis Past Surgical History: Reports: Hx Appendectomy, Hx Cholecystectomy, Hx Genitourinary Surgery, Hx Tonsillectomy, Hx Tubal Ligation - Immunizations Hx Diphtheria, Pertussis, Tetanus Vaccination: Yes Hx Pneumococcal Vaccination: 05/27/13 Review of Systems - Review of Systems Constitutional: No symptoms reported. denies: Fever, Recent illness EENT: No symptoms reported Cardiovascular: No symptoms reported. denies: Chest pain Respiratory: Cough Gastrointestinal: Abdominal pain, Nausea, Constipation. denies: Diarrhea, Vomiting Genitourinary: Dysuria, Frequency, Flank pain Female Genitourinary: No symptoms reported Musculoskeletal: Back pain Skin: No symptoms reported Hematologic/Lymphatic: No symptoms reported Neurological/Psychological: No symptoms reported Physical Exam - Vital signs Vitals: Temp Pulse Resp BP Pulse Ox 98.4 F 93 18 219/106 H 92 01/07/17 09:20 01/07/17 09:20 01/07/17 09:20 01/07/17 09:20 01/07/17 09:20 - General General appearance: Appears well, Alert In distress: None - HEENT Head: Normocephalic, Atraumatic Eyes: Normal Mouth/Lips: Other - adentulous Mucous membranes: Normal Neck: Normal, Supple. No: Lymphadenopathy - Respiratory Respiratory status: No respiratory distress Chest status: Nontender Breath sounds: Nonproductive cough, Wheezing Chest palpation: Normal - Cardiovascular Rhythm: Regular Heart sounds: S1 appreciated, S2 appreciated Murmur: No - Abdominal Inspection: Morbidly Obese Distension: No distension Bowel sounds: Normal Tenderness: Tender - suprapubic - Back Back: CVA tenderness - left - Extremities General upper extremity: Normal inspection, Normal ROM General lower extremity: Normal inspection, Normal ROM - Neurological Neuro grossly intact: Yes Cognition: Normal [place] Coma Scale Eye Opening: Spontaneous Good Coma Scale Verbal: Oriented Good Coma Scale Motor: Obeys Commands Good Coma Scale Total: 15 - Psychological Associated symptoms: Tearful - Skin Skin Temperature: Warm Skin Moisture: Dry Skin Color: Normal Course - Re-evaluation Re-evalutation: 01/07/17 13:00 RN states that lab has been called to draw blood on pt 01/07/17 15:34 Patient resting on stretcher. Patient states that she is feeling better after her IV fluids. Patient denies any nausea at this time. Patient updated regarding results of diagnostic test results. Patient states that she has had E. coli in her urine in the past with previous UTIs. Patient does have her clonidine at home, losartan, HCTZ, metformin and her insulin at home. Patient advised that she will need to resume these medications as her diet alone has not been resolving her blood pressure or hyperglycemia. Patient encouraged to follow-up with her primary doctor for recheck. Patient verbalized understanding and agrees with plan of care. Patient presents with abdominal pain without signs of peritonitis or other life- threatening or serious etiology. Patient appears stable for discharge and has been instructed to return immediately if the symptoms worsen in any way, or in 8 -12 hours if not improved for reevaluation. The patient has been instructed to return if the symptoms worsen or change in any way. - Vital Signs Vital signs: Temp Pulse Resp BP Pulse Ox 98.4 F 93 21 H 178/106 H 96 01/07/17 09:20 01/07/17 09:20 01/07/17 16:01 01/07/17 16:00 01/07/17 16:01 - Laboratory Result Diagrams: 01/07/17 11:15 01/07/17 14:07 Laboratory results interpreted by me: 01/07/17 01/07/17 10:40 14:07 BUN 23 H Glucose 350 H Direct Bilirubin 0.5 H AST 55 H Urine Glucose (UA) >=500 H Urine Nitrite POSITIVE H Urine Ascorbic Acid 40 H Labs- Entire Visit 01/07/17 01/07/17 01/07/17 10:40 11:15 11:15 WBC 9.1 RBC 5.14 Hgb 15.5 Hct 45.8 MCV 89 MCH 30.1 MCHC 33.8 RDW 13.5 Plt Count 166 Seg Neutrophils % 77.6 Lymphocytes % 14.7 Monocytes % 5.7 Eosinophils % 1.5 Basophils % 0.5 Absolute Neutrophils 7.1 Absolute Lymphocytes 1.3 Absolute Monocytes 0.5 Absolute Eosinophils 0.1 Absolute Basophils 0.0 Sodium Cancelled Potassium Cancelled Chloride Cancelled Carbon Dioxide Cancelled Anion Gap Cancelled BUN Cancelled Creatinine Cancelled Est GFR ( Amer) Cancelled Est GFR (Non-Af Amer) Cancelled Glucose Cancelled Lactic Acid Calcium Cancelled Magnesium Cancelled Total Bilirubin Cancelled Direct Bilirubin Cancelled Indirect Bilirubin Cancelled Neonat Total Bilirubin Cancelled AST Cancelled ALT Cancelled Alkaline Phosphatase Cancelled Total Protein Cancelled Albumin Cancelled Lipase Cancelled Urine Color YELLOW Urine Appearance SLIGHTLY-CLOUDY Urine pH 6.0 Ur Specific [place] 1.029 Urine Protein NEGATIVE Urine Glucose (UA) >=500 H Urine Ketones NEGATIVE Urine Blood NEGATIVE Urine Nitrite POSITIVE H Urine Bilirubin NEGATIVE Urine Urobilinogen NEGATIVE Ur Leukocyte Esterase NEGATIVE Urine WBC (Auto) 9 Urine RBC (Auto) 3 Urine Bacteria (Auto) 3+ Squamous Epi Cells Auto 1 Urine Mucus (Auto) OCC Urine Ascorbic Acid 40 H 01/07/17 01/07/17 11:15 14:07 WBC RBC Hgb Hct MCV MCH MCHC RDW Plt Count Seg Neutrophils % Lymphocytes % Monocytes % Eosinophils % Basophils % Absolute Neutrophils Absolute Lymphocytes Absolute Monocytes Absolute Eosinophils Absolute Basophils Sodium 138.2 Potassium 4.4 Chloride 101 Carbon Dioxide 28 Anion Gap 9 BUN 23 H Creatinine 0.53 Est GFR ( Amer) > 60 Est GFR (Non-Af Amer) > 60 Glucose 350 H Lactic Acid 1.1 Calcium 9.5 Magnesium 1.9 Total Bilirubin 0.8 Direct Bilirubin 0.5 H Indirect Bilirubin Not Reportable Neonat Total Bilirubin Not Reportable AST 55 H ALT 44 Alkaline Phosphatase 123 Total Protein 7.8 Albumin 4.3 Lipase 59.7 Urine Color Urine Appearance Urine pH Ur Specific [place] Urine Protein Urine Glucose (UA) Urine Ketones Urine Blood Urine Nitrite Urine Bilirubin Urine Urobilinogen Ur Leukocyte Esterase Urine WBC (Auto) Urine RBC (Auto) Urine Bacteria (Auto) Squamous Epi Cells Auto Urine Mucus (Auto) Urine Ascorbic Acid - Diagnostic Test Radiology reviewed: Reports reviewed Discharge - Discharge Clinical Impression: Noncompliance, Hx of essential hypertension, History of COPD, Hyperglycemia UTI (urinary tract infection) Qualifiers: Urinary tract infection type: site unspecified Hematuria presence: with hematuria Qualified Code(s): N39.0 - Urinary tract infection, site not specified Abdominal pain Qualifiers: Abdominal location: unspecified location Qualified Code(s): R10.9 - Unspecified abdominal pain Condition: Stable Disposition: HOME, SELF-CARE Instructions: Abdominal Pain ([facility]), Urinary Tract Infection ([facility]), High Blood Pressure, Requiring Treatment ([facility]), Hyperglycemia ([facility]), Augmentin ([facility]), Chronic Obstructive Lung Disease ([facility]) Additional Instructions: Return immediately for any new or worsening symptoms Followup with your primary care provider, call tomorrow to make a followup appointment Urine culture is pending, we will call if you need any different treatment Resume taking your losartan, HCTZ, metformin, insulin as prescribed. Your diet alone has not been managing your blood pressure or diabetes sufficiently. Prescriptions: Albuterol Sulfate [Ventolin Hfa] 2 puff IH Q4HP PRN #17 gm PRN Reason: Amoxicillin/Potassium Clav [Augmentin 500-125 Tablet] 1 each PO BID #14 tablet Polyethylene Glycol 3350 [Miralax] 17 gm PO DAILY #119 powder Prednisone [Deltasone 20 mg Tablet] 2 tab PO DAILY 4 Days Forms: Elevated Blood Pressure Referrals: MARLENE SABA MD [Primary Care Provider] - Follow up tomorrow
[2017-01-07 11:19] LABS: APPEARANCE,URINE SLIGHTLY-CLOUDY; BILIRUBIN,URINE NEGATIVE (NEGATIVE); GLUCOSE, URINE >=500 mg/dL (NEGATIVE); KETONES,URINE NEGATIVE (NEGATIVE); LEUKOCYTE ESTERASE,URINE NEGATIVE (NEGATIVE); NITRITE,URINE POSITIVE (NEGATIVE); PROTEIN,URINE NEGATIVE (NEGATIVE); URINE SPECIFIC GRAVITY 1.029; UROBILINOGEN,URINE NEGATIVE mg/dL (<2.0)
[2017-01-07 11:33] LABS: ABSOLUTE EOSINOPHILS # (AUTO) 0.1 10^3/uL (0.0-0.6); ABSOLUTE LYMPHOCYTES (AUTO) 1.3 10^3/uL (0.5-4.7); ABSOLUTE MONOCYTES (AUTO) 0.5 10^3/uL (0.1-1.4); ABSOLUTE NEUT (AUTO) 7.1 10^3/uL (1.7-8.2); BASOPHILS % (AUTO) 0.5 % (0-2); EOSINOPHILS % (AUTO) 1.5 % (0-6); HEMATOCRIT 45.8 % (36.0-47.0); HEMOGLOBIN 15.5 g/dL (12.0-15.5); HGB HCT DIFFERENCE 0.7; LYMPHOCYTES % (AUTO) 14.7 % (13-45); MEAN CORPUSCULAR HEMOGLOBIN 30.1 pg (27.0-33.4); MEAN CORPUSCULAR HGB CONC 33.8 g/dL (32.0-36.0); MEAN CORPUSCULAR VOLUME 89 fl (80-97); MONOCYTES % (AUTO) 5.7 % (3-13); RED BLOOD COUNT 5.14 10^6/uL (3.72-5.28); RED CELL DISTRIBUTION WIDTH 13.5 % (11.5-14.0); SEGMENTED NEUTROPHILS % (AUTO) 77.6 % (42-78); WHITE BLOOD COUNT 9.1 10^3/uL (4.0-10.5)
[2017-01-07] MEDS ORDERED: NORMAL SALINE 1000 ML 500 ML IV ONE (11:54)
--- NOTE | 2017-01-07 12:03 | RADIOLOGY REPORT (SQ) ---
EXAM DESCRIPTION: ACUTE ABDOMEN SERIES COMPLETED DATE/TIME: 01/07/2017 11:38 am REASON FOR STUDY: cough, low abd pain COMPARISON: None. NUMBER OF VIEWS: Three views. TECHNIQUE: Frontal chest, supine abdomen and upright abdomen radiographic images acquired. LIMITATIONS: None. FINDINGS: CHEST: There appear to be mild chronic changes right lung compared to prior study of 2016. FREE AIR: None. No abnormal gas collections. BOWEL GAS PATTERN: A moderate amount of stool is present. Nonobstructive pattern. CALCIFICATIONS: No suspicious calcifications. HARDWARE: Small anchors are present likely mesh graft ventral hernia repair. SOFT TISSUES: No gross mass or suggestion of organomegaly. BONES: No acute fracture. No worrisome bone lesions. OTHER: No other significant finding. IMPRESSION: 1. There is no evidence of a bowel obstruction. 2. There is a moderate amount of stool. 3. There are chronic changes in the chest. TECHNICAL DOCUMENTATION: JOB ID: [id number] [employer]- All Rights Reserved
[2017-01-07] MEDS ORDERED: CEFTRIAXONE RTU 1 GM/D5W 50 ML IV ONE (14:26)
[2017-01-07 14:40] LABS: ALANINE AMINOTRANSFERASE 44 U/L (9-52); ALBUMIN 4.3 g/dL (3.5-5.0); ALKALINE PHOSPHATASE 123 U/L (38-126); ANION GAP 9 (5-19); ASPARTATE AMINO TRANSFERASE 55 U/L (14-36); BILIRUBIN,DIRECT 0.5 mg/dL (0.0-0.4); BILIRUBIN,TOTAL 0.8 mg/dL (0.2-1.3); BLOOD UREA NITROGEN 23 mg/dL (7-20); CALCIUM 9.5 mg/dL (8.4-10.2); CARBON DIOXIDE 28 mmol/L (22-30); CHLORIDE 101 mmol/L (98-107); CREATININE RESULT 0.53 mg/dL (0.52-1.25); GLUCOSE 350 mg/dL (75-110); LIPASE 59.7 U/L (23-300); MAGNESIUM 1.9 mg/dL (1.6-2.3); POTASSIUM 4.4 mmol/L (3.6-5.0); SODIUM 138.2 mmol/L (137-145); TOTAL PROTEIN 7.8 g/dL (6.3-8.2)
[2017-01-07] MEDS ORDERED: INSULIN REG, HUMAN 100 UNIT/ML 3 ML VIAL (PYX) SUBCUT ONE (14:47)
[2017-01-07] MEDS ORDERED: AMOXICILLIN TR/POT CLAVULANATE 500-125 MG TAB PO ONE (15:34)
[2017-01-07 16:08] VITALS: BP 178/106
== END 2017-01-07 16:01 | disposition home or self-care (01) ==
LOC: ER 09:19
DX: N39.0 Urinary tract infection, site not specified (principal); R10.9 Unspecified abdominal pain; F17.200 Nicotine dependence, unspecified, uncomplicated; I10 Essential (primary) hypertension; J44.9 Chronic obstructive pulmonary disease, unspecified; R73.9 Hyperglycemia, unspecified; Z91.19 Patient's noncompliance with other medical treatment and regimen
CPT/HCPCS: 94640; 99284; 96365; 36415; 87086; 83605; 83690; 83735; 85025; 87088; 80053; 81001; 87186; 74022; A9270 ×6; J7030; J0696; J1815; J7512; J7620

== ENCOUNTER 2017-10-18 10:58 | Emergency (ER) | payer MEDICARE, OTHER ==
[2017-10-18 11:20] LABS: ABSOLUTE BASOPHILS # (AUTO) 0.1 10^3/uL (0.0-0.2); ABSOLUTE EOSINOPHILS # (AUTO) 0.1 10^3/uL (0.0-0.6); ABSOLUTE LYMPHOCYTES (AUTO) 1.8 10^3/uL (0.5-4.7); ABSOLUTE MONOCYTES (AUTO) 0.5 10^3/uL (0.1-1.4); ABSOLUTE NEUT (AUTO) 6.1 10^3/uL (1.7-8.2); BASOPHILS % (AUTO) 0.6 % (0-2); EOSINOPHILS % (AUTO) 1.7 % (0-6); HEMATOCRIT 41.9 % (36.0-47.0); HEMOGLOBIN 14.1 g/dL (12.0-15.5); LYMPHOCYTES % (AUTO) 20.6 % (13-45); MEAN CORPUSCULAR HEMOGLOBIN 29.8 pg (27.0-33.4); MEAN CORPUSCULAR HGB CONC 33.7 g/dL (32.0-36.0); MEAN CORPUSCULAR VOLUME 88 fl (80-97); PLATELET COUNT 170 10^3/uL (150-450); RED BLOOD COUNT 4.75 10^6/uL (3.72-5.28); RED CELL DISTRIBUTION WIDTH 13.4 % (11.5-14.0); SEGMENTED NEUTROPHILS % (AUTO) 71.1 % (42-78); TOTAL CELLS COUNTED % (AUTO) 100 %; WHITE BLOOD COUNT 8.7 10^3/uL (4.0-10.5)
[2017-10-18 11:38] LABS: ALANINE AMINOTRANSFERASE 26 U/L (9-52); ALBUMIN 3.6 g/dL (3.5-5.0); ALKALINE PHOSPHATASE 58 U/L (38-126); ANION GAP 8 (5-19); ASPARTATE AMINO TRANSFERASE 18 U/L (14-36); BILIRUBIN,DIRECT 0.3 mg/dL (0.0-0.4); BILIRUBIN,TOTAL 0.6 mg/dL (0.2-1.3); BLOOD UREA NITROGEN 25 mg/dL (7-20); CALCIUM 9.4 mg/dL (8.4-10.2); CARBON DIOXIDE 30 mmol/L (22-30); CHLORIDE 104 mmol/L (98-107); CREATINE KINASE 53 U/L (30-135); GLUCOSE 258 mg/dL (75-110); POTASSIUM 4.5 mmol/L (3.6-5.0); TOTAL PROTEIN 6.2 g/dL (6.3-8.2)
[2017-10-18 11:50] LABS: CREATINE KINASE MB 0.82 ng/mL (<4.55)
[2017-10-18 11:51] LABS: TROPONIN I < 0.012 ng/mL
--- NOTE | 2017-10-18 11:53 | ER Document Report ---
ED General - General Chief Complaint: Chest Pain Stated Complaint: CHEST PAIN Time Seen by Provider: 10/18/17 11:46 Notes: Patient is here because of her blood pressure being elevated. She says that her doctor changed her medications about 3 weeks ago and she has been feeling sick ever since with lower abdominal pain and back pain and itching rash. She stopped taking all of her medicines about 3 weeks ago. Yesterday, she went to a pain management appointment and her blood pressure was 225/103. She was sent to a freestanding emergency department ([facility]) where the patient says she was given clonidine and discharged. She went to her primary care provider' s office today because she preferred a prescription for clonidine tablets and all she has is the clonidine patch. Her primary care office that she could not be seen because her blood pressure was so high, 244/100, and she was sent here. Patient says she has been experiencing chest "heaviness" intermittently over the past 3 weeks, and is not having any chest discomfort at this time. She has occasional shortness of breath. Patient was on medication for high blood pressure, oral medication for diabetes. Patient has never been told to take an aspirin a day. TRAVEL OUTSIDE OF THE [place] IN LAST 30 DAYS: No - Related Data Allergies/Adverse Reactions: sulfamethoxazole [From Septra] Allergy (Verified 01/07/17 09:26) trimethoprim [From Septra] Allergy (Verified 01/07/17 09:26) morphine Adverse Reaction (Verified 01/07/17 09:26) Past Medical History - Social History Smoking Status: Former Smoker - Patient says she stopped smoking about 1 pack of cigarettes per day about a month ago. Family History: Reviewed & Not Pertinent - Past Medical History Cardiac Medical History: Reports: Hx Hypercholesterolemia, Hx Hypertension Denies: Hx Coronary Artery Disease, Hx Heart Attack Pulmonary Medical History: Reports: Hx Asthma, Hx COPD, Hx Sleep Apnea Neurological Medical History: Denies: Hx Seizures Endocrine Medical History: Reports: Hx Diabetes Mellitus Type 1, Hx Diabetes Mellitus Type 2 GI Medical History: Reports: Hx Gastroesophageal Reflux Disease Musculoskeltal Medical History: Reports Hx Arthritis Psychiatric Medical History: Reports: Hx Anxiety, Other - History of chronic back pain and sciatica. Denies: Hx Depression Infectious Medical History: Denies: Hx Hepatitis Past Surgical History: Reports: Hx Appendectomy, Hx Cholecystectomy, Hx Genitourinary Surgery, Hx Tonsillectomy, Hx Tubal Ligation - Immunizations Hx Diphtheria, Pertussis, Tetanus Vaccination: Yes Hx Pneumococcal Vaccination: 05/27/13 Review of Systems - Review of Systems Notes: REVIEW OF SYSTEMS: CONSTITUTIONAL : Denies fever. EENT: Denies eye, ear, nose or mouth or throat pain or other symptoms. CARDIOVASCULAR: See HPI. Patient has occasional chest "heaviness". No current chest pain or heaviness or any discomfort of the chest. RESPIRATORY: Denies cough, chest congestion, or shortness of breath. GASTROINTESTINAL: Denies abdominal pain or nausea, vomiting, or diarrhea. GENITOURINARY: Denies difficulty or painful urinating, urinary frequency, blood in urine. MUSCULOSKELETAL: Has chronic back pain. Some neck pain. SKIN: Denies rash or skin lesions. Patient says both of her hands are discolored from where she had blood pressure cuffs applied to her arms yesterday and today at her primary care doctor's office. NEUROLOGICAL: Denies LOC or altered mental status. Denies headache. Denies sensory loss or motor deficits. ALL OTHER SYSTEMS REVIEWED AND NEGATIVE. Physical Exam - Vital signs Vitals: Temp 97.7 F 10/18/17 10:58 Interpretation: Hypertensive - 174/106 at triage. - Notes Notes: PHYSICAL EXAMINATION: GENERAL: Well-appearing, in no acute distress. HEAD: Atraumatic, normocephalic. EYES: Pupils equal round and reactive to light, extraocular movements intact. ENT: oropharynx clear without exudates. Moist mucous membranes. NECK: Normal range of motion, supple. LUNGS: Breath sounds clear and equal bilaterally. HEART: Regular rate and rhythm without murmurs. ABDOMEN: Soft, nontender. No guarding or rebound. No masses. BACK: No tenderness throughout entire back. EXTREMITIES: Normal range of motion without pain. NEUROLOGICAL: Normal speech, normal gait. Normal sensory, motor, and reflex exams. Awake, alert, and oriented x3. Cranial nerves normal. PSYCH: Normal mood, normal affect. SKIN: Warm, dry, no rashes. Both hands are erythematous and look as if patient may have some capillary leak or breakdown. Course - Re-evaluation Re-evalutation: As patient was being discharged initially, discharge instructions have been written and prescription had been written and patient was about to be discharged when the physician office secretary monitoring the EKG monitors brought to my attention that the patient had a short episode of about 6 beats of V. tach which spontaneously remitted to sinus rhythm. I had Dr. Sears review the strip and agrees that it a nonsustained run of tachycardia that is likely V. tach. He recommended an echocardiogram, repeat cardiac markers, and he will see the patient. 10/18/17 16:02 Dr. Sears came and consulted on the patient in the emergency department. Echocardiogram in the ED was normal, according to Dr. Sears. Repeat troponin and CK-MB were negative/normal. Dr. Sears recommended adding Coreg to the patient's treatment regimen. - Vital Signs Vital signs: Temp Pulse Resp BP Pulse Ox 97.7 F 17 176/81 H 96 10/18/17 10:58 10/18/17 16:01 10/18/17 16:00 10/18/17 16:01 - Laboratory Result Diagrams: 10/18/17 11:05 10/18/17 11:05 Laboratory results interpreted by me: 10/18/17 10/18/17 11:05 11:08 BUN 25 H Glucose 258 H POC Glucose 252 H Total Protein 6.2 L - Diagnostic Test Radiology reviewed: Image reviewed, Reports reviewed - Echocardiogram was read by Dr. Sears as normal. Radiology results interpreted by pa: 10/18/17 14:46 Chest x-ray shows some mild cardiomegaly but otherwise unremarkable. - EKG Interpretation by [place] EKG shows normal: Sinus rhythm Rate: Normal Rhythm: NSR Voltage: Consistant with LVH Discharge - Discharge Clinical Impression: Hyperglycemia, Non-sustained ventricular tachycardia Hypertension Qualifiers: Hypertension type: essential hypertension Qualified Code(s): I10 - Essential ( primary) hypertension Condition: Stable Disposition: HOME, SELF-CARE Additional Instructions: HIGH BLOOD PRESSURE REQUIRING TREATMENT: Your blood pressure is high. This is called "hypertension." Today's reading was (normal is less than 140/90). Your history and exam suggest that this is not a temporary problem. You need treatment of your blood pressure. If left untreated, high blood pressure greatly increases your risk of heart attack and stroke. Please don't ignore this problem. If you have blood pressure medicine but aren't using it regularly, start taking it again. Some simple things you can do to help are: Get some aerobic exercise for at least 20 minutes on a daily basis. (See your doctor before beginning any new exercise program.) Eat a low-fat diet. Lose excess weight. Avoid salty foods and avoid adding salt to any of the foods you eat. Avoid diet pills, decongestants, "energizing" herbs, and other medicines that elevate blood pressure. There are many different medicines that treat blood pressure. If your medication causes unpleasant side effects, call your doctor. There are others you can try. Treating hypertension is a life-long investment in your health. CLONIDINE (CATAPRES): Clonidine is blood-pressure medicine. It works in your brain, making the nervous system relax the blood vessels. This medicine can also be used for symptoms of narcotic withdrawal. Clonidine frequently causes dry mouth, drowsiness, and dizziness. These symptoms go away as you continue to use it. Rest for the first couple of days. Don't drive or use machinery until you're back to normal. Never stop clonidine suddenly! There can be a "rebound" severe increase in blood pressure, headache, and agitation. Be sure you always have enough of the medicine. Call the doctor if you have any new symptoms such as skin rash, weakness, severe lightheadedness, chest pain, headache, or depression. ANGIOTENSIN CONVERTING ENZYME INHIBITOR MEDICATION: "FANY inhibitor" drugs are used to lower high blood pressure (or to reduce the "work" of the heart in patients with heart failure). These drugs block an enzyme that makes your blood vessels constrict and makes you retain salt. The result is lower blood pressure. FANY inhibitors cause few side effects. The most common side effect is a dry nagging cough. Occasionally, lightheadedness may occur while you get used to the medicine. Some patients may retain extra potassium (this is a problem if you are taking potassium supplements, potassium-containing salt substitutes, or a potassium-retaining drug such as triamterene, spironolactone, or amiloride) . If you are taking lithium, the lithium level must be rechecked after starting an FANY inhibitor. FANY inhibitors should NOT be used during . Contact the doctor or return if you develop severe lightheadedness, wheeze , weakness, palpitations or other new symptoms. HYPERGLYCEMIA (HIGH BLOOD SUGAR): You have an abnormally high blood sugar. Not all high blood sugar requires long-term treatment. High blood sugar can be due to medications, , or the stress of illness. (These cases are "borderline diabetes.") If the doctor feels your high blood sugar might resolve with time, you may not require treatment now. It's very important that you follow through, to see if the blood sugar returns to normal levels. Uncontrolled high blood sugar leads to early heart disease, strokes, nerve damage, eye damage, and kidney damage. Call the physician if there is faintness, excess sleepiness, or very rapid breathing. DIABETES: You have an abnormally high blood sugar, suspicious for diabetes. Not all high blood sugar requires long-term treatment. High blood sugar can be due to medications, , or the stress of illness. (These cases are "borderline diabetes.") If the doctor feels your high blood sugar might get better with time, you may not require treatment now. It's very important that you follow through. Uncontrolled high blood sugar leads to early heart disease, strokes, nerve damage, eye damage, and kidney damage. All diabetics should follow a diet designed to control the blood sugar. Overweight diabetics should exercise regularly and lose weight. If this is not sufficient to control the blood sugar, pills or insulin shots are necessary. Younger people who develop diabetes almost always require insulin daily. Home testing of blood sugars or urine sugar is required. Diabetic teaching is available to help you figure insulin doses and monitor the blood sugar. Call the physician if there is faintness, excess sleepiness, or very rapid breathing. If hypoglycemia (LOW blood sugar) develops, symptoms are shakiness, weakness, sweating, and confusion. In this case, you should eat or drink something with sugar at once. ORAL HYPOGLYCEMIC MEDICATION: Oral hypoglycemics are medicines that lower blood sugar in diabetics. They are not effective for younger diabetics who require insulin. Some brands are tolbutamide, Orinase, glipizide, Glucotrol, glyburide, DiaBeta, Glynase, and Micronase. Some medications can increase or decrease the effect of Diabinese. Examples are Clofibrate (Atromid-S), phenylbutazone (Butazolidin), aspirin, sulfonamides, Coumadin, allopurinol (Zyloprim), probenecid (Benemid), acetazolamide (Diamox), beta blockers, steroids, estrogens, Indocin, INH, Levothyroxine, nicotinic acid, Diflucan, Dilantin, and thiazide diuretics. Be sure your doctor knows all the medicines you take, and talk to your doctor before making any changes in your medicines. If you develop symptoms of shakiness, sweats, and lightheadedness, your blood sugar may have gone too low. Eat or drink a small amount of sweet food. If symptoms don't go away, call your doctor. Follow-up with your primary care provider in the next week or 2 to have your blood pressure and blood sugars rechecked and her medications adjusted as needed. FOLLOW-UP CARE: If you have been referred to a physician for follow-up care, call the physician s office for an appointment as you were instructed or within the next two days. If you experience worsening or a significant change in your symptoms, notify the physician immediately or return to the Emergency Department at any time for re-evaluation. Prescriptions: Carvedilol [Coreg 6.25 mg Tablet] 6.25 mg PO BID #60 tablet Clonidine HCl 0.2 mg PO BID #60 tablet Lisinopril 10 mg PO QAM #30 tablet Metformin HCl [Glucophage 500 mg Tablet] 500 mg PO BID #60 tablet Referrals: DEBRA RAMIREZ PA-C [Primary Care Provider] - Follow up as needed
--- NOTE | 2017-10-18 12:00 | RADIOLOGY REPORT (SQ) ---
EXAM DESCRIPTION: CHEST SINGLE VIEW COMPLETED DATE/TIME: 10/18/2017 11:44 am REASON FOR STUDY: chest pain COMPARISON: Chest films 03/24/2015, 10/03/2015, 10/07/2015, 07/20/2016 CT chest 11/13/2015 EXAM PARAMETERS: NUMBER OF VIEWS: One view. TECHNIQUE: Single frontal radiographic view of the chest acquired. RADIATION DOSE: NA LIMITATIONS: None. FINDINGS: LUNGS AND PLEURA: Chronic appearing scarring at the right lung base. No acute infiltrates. No pleural effusion. No pneumothorax. MEDIASTINUM AND HILAR STRUCTURES: No masses. Contour normal. HEART AND VASCULAR STRUCTURES: Moderate cardiomegaly BONES: No acute findings. HARDWARE: None in the chest. OTHER: No other significant finding. IMPRESSION: Chronic scarring at the right lung base. Moderate cardiomegaly. No acute findings TECHNICAL DOCUMENTATION: JOB ID: [id number] [employer]- All Rights Reserved Reading location - IP/workstation name: [email or web address]
--- NOTE | 2017-10-18 13:14 | EKG REPORT ---
SEVERITY:- ABNORMAL ECG - SINUS RHYTHM LEFT VENTRICULAR HYPERTROPHY : Confirmed by: Russell Johnson MD 18-Oct-2017 13:13:29
[2017-10-18 15:56] LABS: CREATINE KINASE MB 0.77 ng/mL (<4.55); TROPONIN I < 0.012 ng/mL
[2017-10-18] MEDS ORDERED: CARVEDILOL 6.25 MG TABLET PO ONE (16:07)
[2017-10-18 17:11] VITALS: BP 176/81
--- NOTE | 2017-10-18 18:37 | XCELERA REPORT ---
[address] [address] Transthoracic Echocardiogram Report Name: DIA RAMIREZ Age: 66 yrs Gender: Female : 1950 Patient Status: Emergency Patient Location: ER Study Date: 10/18/2017 03:29 PM Height: 68 in Weight: 290 lb BSA: 2.4 m2 Procedure: A complete two-dimensional transthoracic echocardiogram was performed (2D, M-mode, spectral and color flow Doppler). The study was technically adequate with some images being suboptimal in quality. Reason For Study: Hypertension and arrhythmia Ordering Physician: AILYN CARABALLO Performed By: Maritza Carballo Interpretation Summary The left ventricular ejection fraction is normal. There is moderate concentric left ventricular hypertrophy. The left ventricle is grossly normal size. Doppler measurements suggest pseudonormalized left ventricular relaxation, which is associated with grade II/IV or mild to moderate diastolic dysfunction No regional wall motion abnormalities noted. The right ventricular systolic function is normal. The right ventricle is mildly dilated. The right atrium is normal in size The left atrium is mildly dilated. There is a trace amount of mitral regurgitation There is no mitral valve stenosis. There is a trace amount of aortic regurgitation There is no aortic valve stenosis There is a trace or physiologic amount of tricuspid regurgitation Tricuspid regurgitation jet envelope not well defined to measure RV systolic pressure accurately. The aortic root is not well visualized but is probably normal size. The inferior vena cava appeared normal and decreased > 50% with respiration (RAP 5-10 mmHg) There is no pericardial effusion. MMode/2D Measurements & Calculations RVDd: 3.5 cm LVIDd: 5.4 cm FS: 32.8 % Ao root diam: 2.9 cm IVSd: 1.5 cm LVIDs: 3.6 cm EDV(Teich): 142.2 ml LVPWd: 1.5 cm ESV(Teich): 55.8 ml Ao root area: 6.8 cm2 EF(Teich): 60.8 % LA dimension: 4.2 cm Doppler Measurements & Calculations MV E max dru: MV P1/2t max dru: Ao V2 max: LV V1 max P.1 cm/sec 67.6 cm/sec 134.4 cm/sec 3.9 mmHg MV A max dru: MV P1/2t: 178.2 msec Ao max PG: LV V1 max: 98.2 cm/sec 7.2 mmHg 99.2 cm/sec MV E/A: 0.69 MVA(P1/2t): 1.2 cm2 MV dec slope: 111.2 cm/sec2 PA V2 max: PI end-d dru: TR max dru: 80.0 cm/sec 143.9 cm/sec 240.3 cm/sec PA max PG: TR max P.6 mmHg 23.1 mmHg Left Ventricle The left ventricle is grossly normal size. There is moderate concentric left ventricular hypertrophy. The left ventricular ejection fraction is normal. Doppler measurements suggest pseudonormalized left ventricular relaxation, which is associated with grade II/IV or mild to moderate diastolic dysfunction. No regional wall motion abnormalities noted. Right Ventricle The right ventricle is mildly dilated. There is normal right ventricular wall thickness. The right ventricular systolic function is normal. Atria The right atrium is normal in size. The left atrium is mildly dilated. Interarterial septum not well visualized and not well dopplered. Cannot comment on ASD/PFO presence. Mitral Valve The mitral valve leaflets are sclerotic, but show no functional abnormalities. There is no mitral valve stenosis. There is a trace amount of mitral regurgitation. Aortic Valve The aortic valve is grossly normal. There is no aortic valve stenosis. There is a trace amount of aortic regurgitation. Tricuspid Valve The tricuspid valve is not well visualized, but is grossly normal. There is no tricuspid stenosis. There is a trace or physiologic amount of tricuspid regurgitation. Tricuspid regurgitation jet envelope not well defined to measure RV systolic pressure accurately. Pulmonic Valve The pulmonic valve is not well visualized. Great Vessels The aortic root is not well visualized but is probably normal size. The inferior vena cava appeared normal and decreased > 50% with respiration (RAP 5-10 mmHg). Effusions There is no pericardial effusion. : AILYN CARABALLO > Tristan Sears
--- NOTE | 2017-10-18 20:01 | PDOC CONSULTATION ---
Consultation Consult Date: 10/18/17 Attending physician:: AILYN CARABALLO Consult reason:: Nonsustained wide-complex tachycardia History of Present Illness Admission Date/PCP: DEBRA RAMIREZ PA-C Patient complains of: Chest discomfort History of Present Illness: DIA RAMIREZ is a 66 year old female because of her blood pressure being elevated. She says that her doctor changed her medications about 3 weeks ago and she has been feeling sick ever since with lower abdominal pain and back pain and itching rash. She stopped taking all of her medicines about 3 weeks ago. Yesterday, she went to a pain management appointment and her blood pressure was 225/103. She was sent to a freestanding emergency department ( [facility]) where the patient says she was given clonidine and discharged. She went to her primary care provider's office today because she preferred a prescription for clonidine tablets and all she has is the clonidine patch. Her primary care office that she could not be seen because her blood pressure was so high, 244/100, and she was sent here. Patient says she has been experiencing chest "heaviness" intermittently over the past 3 weeks, and is not having any chest discomfort at this time. She has occasional shortness of breath. This history obtained by the hospitalist was reviewed. 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 This was completely asymptomatic. Patient on questioning denied any episodes of syncope or near syncope. Patient denied any prior cardiac history. Her main problem has been difficult to control hypertension. Because of nonsustained wide-complex tachycardia, a stat echo was ordered which showed moderate LVH but normal LVEF. No significant valvular abnormalities were noted. Patient also had repeat cardiac enzymes performed which were noted to be completely negative. Based on above evaluation, it was felt that patient could be discharged with close cardiology follow-up. Patient to report any sustained palpitations, syncope, near syncope or recurrence of chest pain. In that case she was advised to come to the emergency room. Past Medical History Cardiac Medical History: Reports: Hyperlipidema, Hypertension Denies: Coronary Artery Disease, Myocardial Infarction Pulmonary Medical History: Reports: Asthma, Chronic Obstructive Pulmonary Disease (COPD), Sleep Apnea Neurological Medical History: Denies: Seizures Endocrine Medical History: Reports: Diabetes Mellitus Type 1, Diabetes Mellitus Type 2 GI Medical History: Reports: Gastroesophageal Reflux Disease Denies: Hepatitis Musculoskeltal Medical History: Reports: Arthritis Psychiatric Medical History: Reports: Other - History of chronic back pain and sciatica. Denies: Depression Past Surgical History Past Surgical History: Reports: Appendectomy, Cholecystectomy, Tonsillectomy, Tubal Ligation Social History Information Source: Patient Smoking Status: Former Smoker - Patient says she stopped smoking about 1 pack of cigarettes per day about a month ago. Frequency of Alcohol Use: Rare Hx Recreational Drug Use: No Hx Prescription Drug Abuse: No - Advance Directive Resuscitation Status: Full Code Surrogate healthcare decision maker:: Patient's friend is the surrogate decision-maker. Name Dann, phone # [phone] Family History Family History: Hypertension - Negative for premature coronary artery disease, sudden cardiac in the immediate family members Parental Family History Reviewed: Yes Children Family History Reviewed: Yes Sibling(s) Family History Reviewed.: Yes Medication/Allergy Home Medications: Cyclobenzaprine HCl [Flexeril 5 mg Tablet] 5 mg PO BIDP PRN 07/21/16 Oxycodone HCl/Acetaminophen [Percocet 5-325 mg Tablet] 1 tab PO BIDP PRN Sertraline HCl [Zoloft] 2 tab PO DAILY 07/21/16 Albuterol Sulfate [Ventolin 0.083% Neb 2.5 mg/3 mL Ampul] 2.5 mg NEB [id number] PRN #1 pkg 07/24/16 Alcohol Antiseptic Pads [Alcohol Pads] 1 pad TP DAILY PRN #1 pkg 07/24/16 Azithromycin 500 mg PO DAILY #7 tablet 07/24/16 Cefdinir [Omnicef 300 mg Capsule] 1 cap PO BID #14 capsule 07/24/16 Clonidine [Catapres-Tts 2 (0.2 mg/24 Hr) Transderm Ptch] 1 each TD Tu@10 30 Days patch.tdwk 07/24/16 Diabetic Supplies,Miscell [Insul-Tote] 1 each ACHS #1 kit 07/24/16 Docusate Sodium [Colace 100 mg Capsule] 100 mg PO BID #60 capsule 07/24/16 Glipizide [Glocotrol 10 Mg Tablet] 10 mg PO DAILY #30 tablet 07/24/16 Hum Insulin NPH/Reg Insulin Hm [Insulin Inj 70-30 (100 Unit/1 ml) 3 ml Vial] 15 unit SUBCUT BID 30 Days unit 07/24/16 Hydrochlorothiazide [Hydrodiuril 12.5 mg Capsule] 12.5 mg PO QAM capsule Ipratropium/Albuterol Sulfate [Duoneb 3 ml Ampul] 3 ml NEB [id number] #1 pkg Lancets [Easy Touch] 1 each ACHS #1 pkg 07/24/16 Lisinopril [Prinivil 10 mg Tablet] 10 mg PO DAILY #30 tablet 07/24/16 Metformin HCl 1,000 mg PO BID #120 tablet 07/24/16 Prednisone 10 mg PO ASDIR PRN 12 Days tab.ds.pk 07/24/16 Sennosides [Senna Laxative] 8.6 mg PO QHS #30 tablet 07/24/16 Albuterol Sulfate [Ventolin Hfa] 2 puff IH Q4HP PRN #17 gm 01/07/17 Amoxicillin/Potassium Clav [Augmentin 500-125 Tablet] 1 each PO BID #14 tablet 01/07/17 Polyethylene Glycol 3350 [Miralax] 17 gm PO DAILY #119 powder 01/07/17 Prednisone [Deltasone 20 mg Tablet] 2 tab PO DAILY 4 Days tablet 01/07/17 Carvedilol [Coreg 6.25 mg Tablet] 6.25 mg PO BID #60 tablet 10/18/17 Clonidine HCl 0.2 mg PO BID #60 tablet 10/18/17 Lisinopril 10 mg PO QAM #30 tablet 10/18/17 Metformin HCl [Glucophage 500 mg Tablet] 500 mg PO BID #60 tablet 10/18/17 Allergies/Adverse Reactions: sulfamethoxazole [From Janra] Allergy (Verified 01/07/17 09:26) trimethoprim [From Janra] Allergy (Verified 01/07/17 09:26) morphine Adverse Reaction (Verified 01/07/17 09:26) Review of Systems Review of Systems: Please see history of present illness and past medical history as wall. Constitutional: No fever or chills reported. Head : No recent chronic headaches, recent head injury. Occasional dizziness. Eyes: No recent eye pain, diplopia, redness, discharge, acute visual changes. Ears: No recent chronic ear pain, acute hearing loss, ear discharge. Oral cavity: No recent ulcerations, bleeding, oral cavity discomfort. Neck: No recent acute neck pain reported. Hematologic: No recent easy bruising or bleeding. Lymphatic: No recent lymph node enlargement reported. Cardiovascular system review: See history of present illness. Respiratory system review: No hemoptysis or blood clots in the lungs reported. Shortness of breath on exertion. Occasional pedal edema. Gastrointestinal system review: Negative for any recent acute hematemesis, melena. History of gastroesophageal reflux. Genitourinary system review: No recent acute or chronic hematuria, flank pain, UTI etc. reported. Skin system review: Negative for any recent abnormal bruising, no rash, no pruritus reported. Neurologic: No prior history of strokes, mini strokes, seizure disorder. History of sleep apnea. Psychologic: No history of major psychosis or major depression reported. Musculoskeletal: Minor aches and pains reported. No acute joint swelling reported. Endocrine: No recent polyuria, polydipsia, recent heat or cold intolerance. Physical Exam Vital Signs: Temp Pulse Resp BP Pulse Ox 97.7 F 17 176/81 H 96 10/18/17 10:58 10/18/17 16:01 10/18/17 16:00 10/18/17 16:01 Intake & Output 10/17/17 10/18/17 10/19/17 06:59 06:59 06:59 Weight 131.8 kg Exam: GENERAL: well-nourished and in no acute distress. Alert and oriented x3 HEAD: Atraumatic, normocephalic. EYES: Pupils equal round and reactive to light, extraocular movements intact, sclera anicteric, conjunctiva are normal. ENT: TMs normal, nares patent, oropharynx clear without exudates. Moist mucous membranes. No oral ulcerations or bleeding gums noted NECK: supple without lymphadenopathy. Trachea is central. No cervical or axillary lymphadenopathy noted. Carotids are 2+, JVD WNL LUNGS: Respiration seems nonlabored, no significant accessory muscle action noted. Breath sounds clear to auscultation bilaterally and equal noted. No wheezes rales or rhonchi noted. No significant dullness noted on percussion. CHEST: Palpation of the chest wall shows no significant chest wall tenderness. 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 ABDOMEN: Soft, no significant tenderness appreciated, normoactive bowel sounds. No guarding, no rebound. No rigidity noted . No masses appreciated. EXTREMITIES: Pedal pulses are 1-2+, no calf tenderness noted. No clubbing or cyanosis. 1+ pedal edema noted NEUROLOGICAL: Focused neurological exam showed no significant neurologic deficit. Normal speech, no focal weakness appreciated. PSYCH: Normal mood, normal affect. Judgment and insight within normal limits. SKIN: No significant ecchymosis, skin is noted to be warm. MUSCULOSKELETAL EXAM: No significant acute joint swelling noted. Results Laboratory Results: 10/18/17 11:05 10/18/17 11:05 10/18/17 10/18/17 11:05 11:05 WBC 8.7 RBC 4.75 Hgb 14.1 Hct 41.9 MCV 88 MCH 29.8 MCHC 33.7 RDW 13.4 Plt Count 170 Seg Neutrophils % 71.1 Lymphocytes % 20.6 Monocytes % 6.0 Eosinophils % 1.7 Basophils % 0.6 Absolute Neutrophils 6.1 Absolute Lymphocytes 1.8 Absolute Monocytes 0.5 Absolute Eosinophils 0.1 Absolute Basophils 0.1 Sodium 142.0 Potassium 4.5 Chloride 104 Carbon Dioxide 30 Anion Gap 8 BUN 25 H Creatinine 0.52 Est GFR ( Amer) > 60 Est GFR (Non-Af Amer) > 60 Glucose 258 H Calcium 9.4 Total Bilirubin 0.6 AST 18 ALT 26 Alkaline Phosphatase 58 Total Protein 6.2 L Albumin 3.6 10/18/17 10/18/17 10/18/17 11:05 11:05 15:10 Creatine Kinase 53 CK-MB (CK-2) 0.82 0.77 Troponin I < 0.012 < 0.012 EKG Comments: Sinus rhythm without any acute ST-T wave changes. LVH Impressions: Chest X-Ray 10/18/17 11:01 IMPRESSION: Chronic scarring at the right lung base. Moderate cardiomegaly. 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 use: unspecified supervisor machining insulin use status Diabetes mellitus complication status : with unspecified complications Qualified Code(s): E11.8 - Type 2 diabetes mellitus with unspecified complications Is this a current diagnosis for this admission?: Yes (3) Hypertension Qualifiers: Hypertension type: essential hypertension Qualified Code(s): I10 - Essential (primary) hypertension Is this a current diagnosis for this admission?: Yes (4) Morbid obesity with BMI of 45.0-49.9, adult Is this a current diagnosis for this admission?: Yes (5) CHANELLE (obstructive sleep apnea) Is this a current diagnosis for this admission?: Yes (6) Chest discomfort Is this a current diagnosis for this admission?: Yes - Notes Notes: Nonsustained ventricular tachycardia: Most likely this is what patient had but cannot rule out aberrant conduction. 2D echo shows normal LVEF, moderate LVH, no significant valvular disease. Therefore overall low risk. Patient could be discharged on beta-eddie. Patient was advised to report any syncope, near syncope or sustained palpitations. In that case patient was advised to return to the emergency room. Patient given a expeditious follow-up in the office. Patient will benefit from a event monitor as an outpatient. Chest discomfort: Possibly related to severe hypertension. Cardiac enzymes have been negative. Cannot rule out other causes such as gastroesophageal reflux. Patient to be treated empirically for it until we can perform a stress test. Stress test will be scheduled as an outpatient. Hypertension: Currently stable. Patient still has high blood pressure but it had come down to a reasonable level prior to discharge. Patient to continue on carvedilol, lisinopril and clonidine as prescribed by the ER physician. Diabetes: Patient has elevated blood sugar. 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 Obstructive sleep apnea: Discussed association of severe hypertension with obstructive sleep apnea and also cardiac dysrhythmia. Discussed that we will be happy to treat patient for this condition if she wishes. Patient of cardiac enzymes has been noted to be negative. EKG was negative. Chest x-ray was negative. It is felt that patient could be discharged with close cardiology follow-up. This was arranged. - Time Time Spent: 50 to 70 Minutes - Patient did have a 2D echocardiogram. At bedside well 2D echocardiogram is being performed. Results were related to the patient and also the ER physician. Patient was felt to be stable for discharge. Patient advised to call office for appointment. Patient information given to president and chief executive officer. Medications reviewed and adjusted accordingly: Yes
== END 2017-10-18 17:12 | disposition home or self-care (01) ==
LOC: ER 10:58
DX: R07.9 Chest pain, unspecified (principal); I10 Essential (primary) hypertension; I47.2 Ventricular tachycardia; E11.65 Type 2 diabetes mellitus with hyperglycemia; R21 Rash and other nonspecific skin eruption; L53.9 Erythematous condition, unspecified; R10.30 Lower abdominal pain, unspecified; E78.00 Pure hypercholesterolemia, unspecified; J44.9 Chronic obstructive pulmonary disease, unspecified; Z90.49 Acquired absence of other specified parts of digestive tract; Z88.3 Allergy status to other anti-infective agents; Z88.6 Allergy status to analgesic agent
CPT/HCPCS: 93005; 99285; 36415; 82553; 82962; 82550; 85025; 80053; 84484; 93306; 71045; 93010; A9270

== ENCOUNTER 2019-03-16 13:08 | Inpatient (IN) | payer MEDICARE, OTHER ==
--- NOTE | 2019-03-16 13:37 | ER Document Report ---
ED Medical Screen (RME) - General Chief Complaint: Urinary Problem Stated Complaint: URINARY PROBLEM,BLOOD IN BUTTOCKS, ABDOMINAL PAIN Time Seen by Provider: 03/16/19 13:31 Primary Care Provider: BRIANNA CARTAGENA MD [Primary Care Provider] - Follow up as needed Mode of Arrival: Wheelchair Information source: Patient Notes: 68-year-old female presents to ED for complaint of urinary burning frequency urgency and pain. She also has bleeding from her rectum. She states she has constant constipation and external hemorrhoids and she does not know if something has burst back there and is bleeding. She states she normally lives in [place] but she does not have a home at this time so she is living with a friend in the area. She is diabetic with high blood pressure peripheral neuropathy arthritis cervical stenosis, rotator cuff tear repair. She has constant urinary incontinence and wears incontinence pads. She states she has had a wound in right leg and had a wound VAC to the second and heal the wound. She is also had E. coli in the past. I have greeted and performed a rapid initial assessment of this patient. A comprehensive ED assessment and evaluation of the patient, analysis of test results and completion of medical decision making process will be conducted by an additional ED providers. TRAVEL OUTSIDE OF THE [place] IN LAST 30 DAYS: No - Related Data Allergies/Adverse Reactions: sulfamethoxazole [From Septra] Allergy (Verified 01/07/17 09:26) trimethoprim [From Septra] Allergy (Verified 01/07/17 09:26) morphine Adverse Reaction (Verified 01/07/17 09:26) Past Medical History - Social History Frequency of alcohol use: None Drug Abuse: None - Past Medical History Cardiac Medical History: Reports: Hx Hypercholesterolemia, Hx Hypertension Denies: Hx Congestive Heart Failure, Hx Coronary Artery Disease, Hx Heart Attack, Hx Pulmonary Embolism Pulmonary Medical History: Reports: Hx Asthma, Hx COPD, Hx Sleep Apnea Neurological Medical History: Denies: Hx Seizures Endocrine Medical History: Reports: Hx Diabetes Mellitus Type 1, Hx Diabetes Mellitus Type 2. Denies: Hx Hyperthyroidism, Hx Hypothyroidism Renal/ Medical History: Denies: Hx Peritoneal Dialysis GI Medical History: Reports: Hx Gastroesophageal Reflux Disease. Denies: Hx Cirrhosis, Hx Hepatitis Musculoskeltal Medical History: Reports Hx Arthritis Psychiatric Medical History: Reports: Hx Anxiety Denies: Hx Depression Infectious Medical History: Denies: Hx Hepatitis Past Surgical History: Reports: Hx Appendectomy, Hx Cholecystectomy, Hx Genitourinary Surgery, Hx Tonsillectomy, Hx Tubal Ligation - Immunizations Hx Diphtheria, Pertussis, Tetanus Vaccination: Yes Physical Exam - Vital signs Vitals: Temp Pulse Resp BP Pulse Ox 98.6 F 78 20 217/81 H 91 L 03/16/19 13:16 03/16/19 13:16 03/16/19 13:16 03/16/19 13:16 03/16/19 13:16 Course - Vital Signs Vital signs: Temp Pulse Resp BP Pulse Ox 98.6 F 78 20 198/78 H 91 L 03/16/19 13:16 03/16/19 13:16 03/16/19 13:16 03/16/19 13:28 03/16/19 13:16 Doctor's Discharge - Discharge Referrals: BRIANNA CARTAGENA MD [Primary Care Provider] - Follow up as needed
[2019-03-16 14:30] LABS: ABSOLUTE EOSINOPHILS # (AUTO) 0.1 10^3/uL (0.0-0.6); ABSOLUTE LYMPHOCYTES (AUTO) 1.2 10^3/uL (0.5-4.7); ABSOLUTE MONOCYTES (AUTO) 0.7 10^3/uL (0.1-1.4); ABSOLUTE NEUT (AUTO) 7.4 10^3/uL (1.7-8.2); BASOPHILS % (AUTO) 0.5 % (0-2); EOSINOPHILS % (AUTO) 1.4 % (0-6); HEMATOCRIT 42.3 % (36.0-47.0); LYMPHOCYTES % (AUTO) 12.4 % (13-45); MEAN CORPUSCULAR HEMOGLOBIN 29.9 pg (27.0-33.4); MEAN CORPUSCULAR HGB CONC 33.2 g/dL (32.0-36.0); MEAN CORPUSCULAR VOLUME 90 fl (80-97); PLATELET COUNT 192 10^3/uL (150-450); RED BLOOD COUNT 4.68 10^6/uL (3.72-5.28); RED CELL DISTRIBUTION WIDTH 13.4 % (11.5-14.0); SEGMENTED NEUTROPHILS % (AUTO) 78.7 % (42-78); TOTAL CELLS COUNTED % (AUTO) 100 %; WHITE BLOOD COUNT 9.4 10^3/uL (4.0-10.5)
[2019-03-16 14:38] LABS: INTERNATIONAL RATION (INR) 1.02; PROTHROMBIN TIME 13.4 SEC (11.4-15.4)
[2019-03-16 14:46] LABS: ALBUMIN 3.3 g/dL (3.5-5.0); ALKALINE PHOSPHATASE 360 U/L (38-126); ANION GAP 10 (5-19); ASPARTATE AMINO TRANSFERASE 30 U/L (14-36); BILIRUBIN,DIRECT 0.3 mg/dL (0.0-0.4); BILIRUBIN,TOTAL 0.8 mg/dL (0.2-1.3); BLOOD UREA NITROGEN 15 mg/dL (7-20); CALCIUM 8.8 mg/dL (8.4-10.2); CARBON DIOXIDE 29 mmol/L (22-30); CHLORIDE 97 mmol/L (98-107); CREATINE KINASE 42 U/L (30-135); POTASSIUM 4.6 mmol/L (3.6-5.0)
[2019-03-16 14:57] LABS: CREATINE KINASE MB 1.04 ng/mL (<4.55); TROPONIN I 0.032 ng/mL
[2019-03-16 15:19] LABS: GLUCOSE 571 mg/dL (75-110)
[2019-03-16 15:49] LABS: VENOUS BLOOD BASE EXCESS 4.6 mmol/L; VENOUS BLOOD HCO3 33.4 mmol/L (20-32); VENOUS BLOOD PH 7.32 (7.30-7.42)
[2019-03-16 15:51] LABS: VENOUS BLOOD PCO2 66.3 mmHg (35-63)
[2019-03-16 15:59] LABS: APPEARANCE,URINE CLEAR; BILIRUBIN,URINE NEGATIVE (NEGATIVE); COLOR,URINE YELLOW; GLUCOSE, URINE >=500 mg/dL (NEGATIVE); KETONES,URINE NEGATIVE (NEGATIVE); PROTEIN,URINE NEGATIVE (NEGATIVE); URINE SPECIFIC GRAVITY 1.031; UROBILINOGEN,URINE NEGATIVE mg/dL (<2.0)
[2019-03-16 16:08] LABS: URINE AMPHETAMINES SCREEN NEGATIVE; URINE BARBITURATES SCREEN NEGATIVE; URINE BENZODIAZEPINES SCREEN NEGATIVE; URINE COCAINE SCREEN NEGATIVE; URINE MARIJUANA (THC) SCREEN NEGATIVE; URINE METHADONE SCREEN NEGATIVE; URINE PHENCYCLIDINE SCREEN NEGATIVE
--- NOTE | 2019-03-16 16:56 | EKG REPORT ---
SEVERITY:- ABNORMAL ECG - SINUS RHYTHM PROBABLE LVH WITH SECONDARY REPOL ABNRM : Confirmed by: Jeanna Varela MD 16-Mar-2019 16:55:18
[2019-03-16] MEDS ORDERED: DEXTROSE 5%-WATER 1000 ML 1,000 ML with SODIUM BICARBONATE 150 MEQ IV ONE ×2 (17:14)
[2019-03-16] MEDS ORDERED: NORMAL SALINE 1000 ML 1,000 ML IV ONE ×2 (17:14→22:23)
[2019-03-16] MEDS ORDERED: INSULIN REG, HUMAN 100 UNIT/ML 3 ML VIAL (PYX) IV ONE ×2 (17:14→22:51)
--- NOTE | 2019-03-16 18:29 | RADIOLOGY REPORT (SQ) ---
EXAM DESCRIPTION: CT ABD/PELVIS WITH IV ONLY COMPLETED DATE/TIME: 03/16/2019 6:03 pm REASON FOR STUDY: diffuse abd pain/perirectal erythema/induration COMPARISON: 11/13/2015 TECHNIQUE: CT scan of the abdomen and pelvis performed using helical scanning technique with dynamic intravenous contrast injection. No oral contrast. Images reviewed with lung, soft tissue, and bone windows. Reconstructed coronal and sagittal MPR images reviewed. Delayed images for evaluation of the urinary system also acquired. All images stored on PACS. All CT scanners at this facility use dose modulation, iterative reconstruction, and/or weight based d osing when appropriate to reduce radiation dose to as low as reasonably achievable (ALARA). [facility]: Dose Right [facility]: CareDose [facility]: Dose Right [facility]: Teradose 4D [facility]: Helveta CONTRAST TYPE AND DOSE: See computer engineering technologist's notes. RENAL FUNCTION: BUN 15 creatinine 0.5 RADIATION DOSE: . LIMITATIONS: None. FINDINGS: LOWER CHEST: Limited opacification in the right lower lobe on image 1. Pleural calcificat ions are seen in the right base. LIVER: Mild hepatomegaly. Liver is heterogeneous. The right lobe is somewhat hypoattenuating. In t he left lobe of the liver there are some prominent ducts. There are some small low-density lesions w ith peripheral enhancement. The largest of these measures about 2 cm. SPLEEN: Splenomegaly. PANCREAS: No masses. No significant calcifications. No adjacent inflammation or peripancreatic fluid collections. Pancreatic duct not dilated. GALLBLADDER: No identified stones by CT criteria. No inflammatory changes to suggest cholecystitis. ADRENAL GLANDS: No significant masses or asymmetry. RIGHT KIDNEY AND URETER: No solid masses. No significant calcifications. No hydronephrosis or hyd roureter. LEFT KIDNEY AND URETER: No solid masses. No significant calcifications. No hydronephrosis or hydr oureter. AORTA AND VESSELS: No aneurysm. No dissection. Renal arteries, SMA, celiac without stenosis. RETROPERITONEUM: No retroperitoneal adenopathy, hemorrhage or masses. BOWEL AND PERITONEAL CAVITY: No masses or inflammatory changes. No free fluid or peritoneal masses. APPENDIX: Not identified. PELVIS: No mass. No free fluid. Normal bladder. ABDOMINAL WALL: No masses. No hernias. BONES: No significant or acute findings. OTHER: No other significant finding. IMPRESSION: 1. There is mild hepatosplenomegaly. 2. The liver is heterogeneous. There appears to be focal fatty infiltration in the right lobe. The re appear to be prominent intrahepatic ducts in the left lobe. Is there any clinical evidence of ashley iary obstruction? There are several small peripherally enhancing lesions concerning for metastases. TECHNICAL DOCUMENTATION: JOB ID: [id number] Quality ID # [id number]: Final reports with documentation of one or more dose reduction techniques (e.g., Au tomated exposure control, adjustment of the mA and/or kV according to patient size, use of iterative reconstruction technique) 2010 [employer]- All Rights Reserved Reading location - IP/workstation name: [email or web address]
[2019-03-16] MEDS ORDERED: HYDROMORPHONE HCL INJ/PF 2 MG/ML AMPULE IV ONE (18:48)
--- NOTE | 2019-03-16 22:39 | RADIOLOGY REPORT (SQ) ---
EXAM DESCRIPTION: US ABDOMEN LIMITED COMPLETED DATE/TME: 03/16/2019 19:11 CLINICAL HISTORY: 68 years, Female, ruq pain/elevated lft's COMPARISON: CT abdomen and pelvis 03/16/2019. TECHNIQUE: Stapleton scale sonography of the right upper quadrant abdomen. LIMITATIONS: Body habitus and bowel gas. FINDINGS: LIVER: Coarsened hepatic echogenicity with poor posterior through transmission compatible with diffuse hepatic steatosis. The liver is enlarged measuring 23.7 cm. GALLBLADDER: Hydropic appearance of the gallbladder otherwise within normal limits without gallbladder wall thickening pericholecystic fluid or cholelithiasis. Negative sonographic Osborn's sign. However, a tiny focus of calcification is noted within the proximal gallbladder on CT examination measuring 7 mm suggesting calculus. BILIARY TRACT: Dilated intrahepatic ducts of the predominantly LEFT hepatobiliary system The common bile duct is prominent measuring 8 mm. PANCREAS: Limited evaluation secondary to partial obscuration by overlying bowel gas otherwise within normal limits. KIDNEY: The RIGHT kidney is within normal limits of morphology and echogenicity measuring 13.2 x 5.0 x 5.7 cm. IMPRESSION: 1. Coarsened hepatic echogenicity and intrahepatic, predominantly LEFT lobe biliary dilation of uncertain etiology. Previously identified rim-enhancing lesions within the LEFT lobe liver are not demonstrated on the provided sonographic images. Correlation with MRI is recommended. 2. Top normal size of the common bile duct measuring 8 mm. 3. Hydropic appearance of the gallbladder without findings to suggest gallbladder wall thickening, pericholecystic fluid. No focus of echogenicity is identified to suggest calculus, however focus of increased density is present within the proximal dependent gallbladder CT examination concerning for 4 mm calculus versus wall calcification. copyright 2010 [employer]- All Rights Reserved
[2019-03-16] MEDS ORDERED: VANCOMYCIN HCL INJ 1000 MG VIAL IV ONE (22:50)
--- NOTE | 2019-03-16 22:57 | ER Document Report ---
ED General - General Chief Complaint: Urinary Problem Stated Complaint: URINARY PROBLEM,BLOOD IN BUTTOCKS, ABDOMINAL PAIN Time Seen by Provider: 03/16/19 13:31 Primary Care Provider: BRIANNA CARTAGENA MD [ACTIVE STAFF] - Follow up as needed Mode of Arrival: Ambulatory Information source: Patient TRAVEL OUTSIDE OF THE [place] IN LAST 30 DAYS: No - HPI Notes: Patient presents with multiple complaints. She states she recently lost her living situation is now staying in a motel in her car. She also states that she lost access to her medications. She states she is actually not been compliant with them. She states she has had some bleeding from a sore by her rectum and it is tender. She is also had diffuse abdominal pain and has had some nausea. She also states she has had some pain with urination. No significant cough or shortness of breath. No fevers. No known falls or trauma. The abdominal pain is been mainly upper quadrant bilaterally and crampy. Nothing makes it better or worse. It does radiate from one side to the other. It is moderate in intensity. - Related Data Allergies/Adverse Reactions: sulfamethoxazole [From Septra] Allergy (Verified 01/07/17 09:26) trimethoprim [From Septra] Allergy (Verified 01/07/17 09:26) morphine Adverse Reaction (Verified 01/07/17 09:26) Past Medical History - General Information source: Patient - Social History Smoking Status: Former Smoker Frequency of alcohol use: None Drug Abuse: None Family History: Reviewed & Not Pertinent Patient has suicidal ideation: No Patient has homicidal ideation: No - Past Medical History Cardiac Medical History: Reports: Hx Hypercholesterolemia, Hx Hypertension Denies: Hx Congestive Heart Failure, Hx Coronary Artery Disease, Hx Heart Attack, Hx Pulmonary Embolism Pulmonary Medical History: Reports: Hx Asthma, Hx COPD, Hx Sleep Apnea Neurological Medical History: Denies: Hx Seizures Endocrine Medical History: Reports: Hx Diabetes Mellitus Type 1, Hx Diabetes Mellitus Type 2. Denies: Hx Hyperthyroidism, Hx Hypothyroidism Renal/ Medical History: Denies: Hx Peritoneal Dialysis GI Medical History: Reports: Hx Gastroesophageal Reflux Disease. Denies: Hx Cirrhosis, Hx Hepatitis Musculoskeletal Medical History: Reports Hx Arthritis Psychiatric Medical History: Reports: Hx Anxiety Denies: Hx Depression Infectious Medical History: Denies: Hx Hepatitis Past Surgical History: Reports: Hx Appendectomy, Hx Cholecystectomy, Hx Genitourinary Surgery, Hx Tonsillectomy, Hx Tubal Ligation - Immunizations Hx Diphtheria, Pertussis, Tetanus Vaccination: Yes Hx Pneumococcal Vaccination: 05/27/13 Review of Systems - Review of Systems Constitutional: Malaise, Weakness Cardiovascular: denies: Chest pain, Palpitations Respiratory: denies: Cough, Short of breath Gastrointestinal: Abdominal pain, Nausea -: Yes All other systems reviewed and negative Physical Exam - Vital signs Vitals: Temp Pulse Resp BP Pulse Ox 98.6 F 78 20 217/81 H 91 L 03/16/19 13:16 03/16/19 13:16 03/16/19 13:16 03/16/19 13:16 03/16/19 13:16 Interpretation: Hypertensive - General General appearance: Appears well, Alert - HEENT Head: Normocephalic, Atraumatic Eyes: Normal Pupils: PERRL - Respiratory Respiratory status: No respiratory distress Chest status: Nontender Breath sounds: Normal Chest palpation: Normal - Cardiovascular Rhythm: Regular Heart sounds: Normal auscultation Murmur: No - Abdominal Inspection: Normal Distension: No distension Bowel sounds: Normal Tenderness: Tender - diffuse upper abd. no rebound, no guarding Organomegaly: No organomegaly - Back Back: Normal, Nontender - Extremities General upper extremity: Normal inspection, Nontender, Normal color, Normal ROM, Normal temperature General lower extremity: Normal inspection, Nontender, Edema - 2+ bilat, Normal color, Normal ROM, Normal temperature, Normal weight bearing. No: Gaby's sign - Neurological Neuro grossly intact: Yes Cognition: Normal Orientation: AAOx4 [place] Coma Scale Eye Opening: Spontaneous [place] Coma Scale Verbal: Oriented Good Coma Scale Motor: Obeys Commands [place] Coma Scale Total: 15 Speech: Normal Motor strength normal: LUE, RUE, LLE, RLE Sensory: Normal - Psychological Associated symptoms: Normal affect, Normal mood - Skin Skin Temperature: Warm Skin Moisture: Dry Skin Color: Other - pt has erythema/induration/ tenderness of left buttock. does not involve rectum. Course - Re-evaluation Re-evalutation: 03/16/19 22:58 Patient presents with multiple complaints. On exam she has cellulitis versus early abscess of the buttocks. CT shows no fluid collection so this time she will be treated with IV antibiotics as a cellulitis. Patient also has uncontrolled blood sugars but is not acidotic. She will be treated with fluids and insulin. Patient also has vague abdominal pain with some equivocal findings of the gallbladder. She will be admitted and have a HIDA scan in the morning as well as surgical consultation. She also has some other questionable findings in the abdomen which will be further explored while in the hospital. Patient has some baseline alkalosis which does not require any treatment at this time. - Vital Signs Vital signs: Temp Pulse Resp BP Pulse Ox 98.6 F 78 20 198/78 H 91 L 03/16/19 13:16 03/16/19 13:16 03/16/19 13:16 03/16/19 13:28 03/16/19 13:16 - Laboratory Result Diagrams: 03/16/19 13:55 03/16/19 13:55 Laboratory results interpreted by me: 03/16/19 03/16/19 03/16/19 13:55 13:55 15:32 Lymph % (Auto) 12.4 L Seg Neutrophils % 78.7 H VBG pCO2 66.3 H* VBG HCO3 33.4 H Sodium 135.7 L Chloride 97 L Creatinine 0.51 L Glucose 571 H* POC Glucose Alkaline Phosphatase 360 H Total Protein 6.0 L Albumin 3.3 L Urine Glucose (UA) Urine Blood Urine Nitrite (Reflex) 03/16/19 03/16/19 15:38 22:22 Lymph % (Auto) Seg Neutrophils % VBG pCO2 VBG HCO3 Sodium Chloride Creatinine Glucose POC Glucose 356 H Alkaline Phosphatase Total Protein Albumin Urine Glucose (UA) >=500 H Urine Blood SMALL H Urine Nitrite (Reflex) POSITIVE H - Diagnostic Test Radiology reviewed: Image reviewed, Reports reviewed - EKG Interpretation by Me EKG shows normal: Sinus rhythm Rate: Normal - 78 Rhythm: NSR Voltage: Consistant with LVH Discharge - Discharge Clinical Impression: Cellulitis of buttock, left, Morbid obesity with BMI of 45.0-49.9, adult Abdominal pain Qualifiers: Abdominal location: upper abdomen, unspecified Qualified Code(s): R10.10 - Upper abdominal pain, unspecified Uncontrolled diabetes mellitus Qualifiers: Diabetes mellitus type: type 2 Glycemic state: with hyperglycemia Qualified Code(s): E11.65 - Type 2 diabetes mellitus with hyperglycemia Condition: Fair Disposition: ADMITTED INPATIENT Admitting Provider: Chelsie (Hospitalist) Unit Admitted: Medical Floor Referrals: BRIANNA CARTAGENA MD [ACTIVE STAFF] - Follow up as needed
[2019-03-17] MEDS ORDERED: MAGNESIUM HYDROXIDE SUSP 30 ML UDCUP PO PRN (00:23)
[2019-03-17] MEDS ORDERED: LEVALBUTEROL HCL NEB 0.63 MG/3 ML AMPUL NEB PRN (00:23)
[2019-03-17] MEDS ORDERED: MAG HYDROX/AL HYDROX/SIMETH SUSP 30 ML UDCUP PO PRN (00:23)
[2019-03-17] MEDS ORDERED: DEXTROSE 50%-WATER 25 GM/50 ML DISP.SYRIN IV PRN ×2 (00:23)
[2019-03-17] MEDS ORDERED: TEMAZEPAM 15 MG CAPSULE PO PRN (00:23)
[2019-03-17] MEDS ORDERED: DEXTROSE 40% GEL 15 GM TUBE PO PRN ×2 (00:23)
[2019-03-17] MEDS ORDERED: GLUCAGON,HUMAN RECOMB 1 MG INJ IM PRN (00:23)
[2019-03-17] MEDS ORDERED: NALBUPHINE HCL INJ 10 MG/1 ML AMPULE IV PRN ×2 (00:32→01:03)
[2019-03-17] MEDS: HYDRALAZINE HCL INJ/PF 20 MG/1 ML SDV IV PRN (03:06)
[2019-03-17] MEDS: NALBUPHINE HCL INJ 10 MG/1 ML AMPULE IV PRN (03:06)
--- NOTE | 2019-03-17 04:08 | PDOC H&P ---
History of Present Illness Admission Date/PCP: 03/16/19 23:07 No local PCP Patient complains of: Abdominal pain History of Present Illness: DIA RAMIREZ is a 68 year old female who presented to the emergency room with a one-week history of abdominal pain. The patient admits episodes of mo derate crampy upper abdominal pain with acute onset and several hours duration. The pain does not radiate but does move from side to side. The pain has been associated with nausea without vomiting. She denies prior similar episodes. She has not identified any aggravating or ameliorating factors for her abdominal pain. She also complained of a perianal sore worsening over the last 2 weeks and lower abdominal pain on urination for the last 3 weeks. In the emergency room she was found to have hydrops of the gallbladder with cholelithiasis on ultrasound and she was noted to have fatty infiltration of the liver with some small hypodense areas with peripheral enhancement. Patient was noted to have poorly controlled diabetes mellitus in the emergency room with an initial blood sugar of 571. Dr. Jacobson was contacted by the emergency room physician and he felt that the patient needed to be admitted for further evaluation but requested the hospital service admit the patient and consult him. Patient was therefore admitted to the hospital service for further evaluation and treatment. Past Medical History Cardiac Medical History: Reports: Hyperlipidema, Hypertension Denies: Congestive Heart Failure, Coronary Artery Disease, Myocardial Infarct ion, Pulmonary Embolism Pulmonary Medical History: Reports: Asthma, Chronic Obstructive Pulmonary Disease (COPD), Sleep Apnea EENT Medical History: Reports: Eyes - Prescription lenses Denies: Cataracts, Ears - Hearing aids Neurological Medical History: Denies: Hemorrhagic CVA, Ischemic CVA, Seizures Endocrine Medical History: Reports: Diabetes Mellitus Type 2, Obesity Denies: Diabetes Mellitus Type 1, Hyperthyroidism, Hypothyroidism Renal/ Medical History: Denies: Chronic Kidney Disease, Nephrolithiasis Malignancy Medical History: Reports: None GI Medical History: Reports: Gastroesophageal Reflux Disease Denies: Cirrhosis, Crohn's Disease, Hepatitis, Peptic Ulcer Disease, Ulcerative Colitis Musculoskeltal Medical History: Reports: Arthritis Denies: Gout Skin Medical History: Denies: Eczema, Psoriasis Psychiatric Medical History: Reports: General Anxiety Disorder, Tobacco Dependency Denies: Alcohol Dependency, Substance Abuse Traumatic Medical History: Reports: None Hematology: Denies: Anemia, Bleeding Tendencies Infectious Medical History: Reports: None Past Surgical History Past Surgical History: Reports: Appendectomy, Tonsillectomy, Tubal Ligation Social History Information Source: Patient Lives with: Homeless Smoking Status: Former Smoker Electronic Cigarette use?: No Frequency of Alcohol Use: Rare Hx Recreational Drug Use: No Drugs: None Hx Prescription Drug Abuse: No - Advance Directive Resuscitation Status: Full Code Surrogate healthcare decision maker:: Dann Cummings Family History Family History: Arthritis, CAD, DM, Hypertension. denies: Malignancy Parental Family History Reviewed: Yes Children Family History Reviewed: No Sibling(s) Family History Reviewed.: Yes Medication/Allergy Home Medications: Cyclobenzaprine HCl [Flexeril 5 mg Tablet] 5 mg PO BIDP PRN 07/21/16 Oxycodone HCl/Acetaminophen [Percocet 5-325 mg Tablet] 1 tab PO BIDP PRN 0 07/21/16 Albuterol Sulfate [Ventolin 0.083% Neb 2.5 mg/3 mL Ampul] 2.5 mg NEB RTQ4HP PRN #1 pkg 07/24/16 Cefdinir [Omnicef 300 mg Capsule] 1 cap PO BID #14 capsule 07/24/16 Clonidine [Catapres-Tts 2 (0.2 mg/24 Hr) Transderm Ptch] 1 each TD Tu@10 30 Days patch.tdwk 07/24/16 Docusate Sodium [Colace 100 mg Capsule] 100 mg PO BID #60 capsule 07/24/16 Hydrochlorothiazide [Hydrodiuril 12.5 mg Tablet] 12.5 mg PO QAM capsule 07/24/16 Ipratropium/Albuterol Sulfate [Duoneb 3 ml Ampul] 3 ml NEB LBD4TYP #1 pkg 07/24/16 Lancets [Easy Touch] 1 each ACHS #1 pkg 07/24/16 Lisinopril [Prinivil 10 mg Tablet] 10 mg PO DAILY #30 tablet 07/24/16 Sennosides [Senna Laxative] 8.6 mg PO QHS #30 tablet 07/24/16 Albuterol Sulfate [Ventolin Hfa] 2 puff IH Q4HP PRN #17 gm 01/07/17 Polyethylene Glycol 3350 [Miralax] 17 gm PO DAILY #119 powder 01/07/17 Carvedilol [Coreg 6.25 mg Tablet] 6.25 mg PO BID #60 tablet 10/18/17 Clonidine HCl 0.2 mg PO BID #60 tablet 10/18/17 Lisinopril 10 mg PO QAM #30 tablet 10/18/17 Allergies/Adverse Reactions: sulfamethoxazole [From Septra] Allergy (Verified 01/07/17 09:26) trimethoprim [From Janra] Allergy (Verified 01/07/17 09:26) morphine Adverse Reaction (Verified 01/07/17 09:26) Review of Systems Constitutional: ABSENT: chills, fever(s) Eyes: ABSENT: visual disturbances, other - Eye pain Ears: ABSENT: hearing changes, other - Ear pain Nose, Mouth, and Throat: ABSENT: mouth pain, sore throat Cardiovascular: ABSENT: chest pain, palpitations Respiratory: ABSENT: cough, dyspnea Gastrointestinal: PRESENT: as per HPI, abdominal pain, nausea. ABSENT: constipation, diarrhea, vomiting Genitourinary: PRESENT: as per HPI, dysuria, other - Perianal "sore". ABSENT: hematuria Musculoskeletal: ABSENT: back pain, joint swelling, muscle weakness Integumentary: PRESENT: wounds - Perineal "sore". ABSENT: pruritus, rash Neurological: ABSENT: confusion, convulsions, focal weakness, memory loss, syncope Psychiatric: ABSENT: anxiety, depression Endocrine: ABSENT: cold intolerance, heat intolerance Hematologic/Lymphatic: ABSENT: easy bleeding, easy bruising Allergic/Immunologic: ABSENT: seasonal rhinorrhea Physical Exam Vital Signs: Temp Pulse Resp BP Pulse Ox 98.6 F 78 20 198/78 H 91 L 03/16/19 13:16 03/16/19 13:16 03/16/19 13:16 03/16/19 13:28 03/16/19 13:16 Intake & Output 03/14/19 03/15/19 03/16/19 23:59 23:59 23:59 Intake Total 2975 Balance 2975 Weight 140.8 kg General appearance: PRESENT: no acute distress, cooperative Head exam: PRESENT: atraumatic, normocephalic Eye exam: PRESENT: conjunctiva pink. ABSENT: conjunctival injection, scleral icterus Ear exam: PRESENT: normal external ear exam. ABSENT: bleeding, drainage Mouth exam: PRESENT: dry mucosa, neck supple Neck exam: ABSENT: thyromegaly, tracheal deviation Respiratory exam: PRESENT: clear to auscultation ashley, symmetrical, unlabored Cardiovascular exam: PRESENT: RRR. ABSENT: clicks, gallop, rubs Pulses: PRESENT: normal radial pulses, normal dorsalis pedis pul Vascular exam: PRESENT: normal capillary refill. ABSENT: pallor GI/Abdominal exam: PRESENT: normal bowel sounds, soft, tenderness - Minimal right upper quadrant tenderness palpation, mild suprapubic tenderness on palpation. ABSENT: Osborn's sign Rectal exam: PRESENT: deferred Extremities exam: ABSENT: joint swelling, pedal edema Musculoskeletal exam: ABSENT: deformity, dislocation Neurological exam: PRESENT: alert, oriented to person, oriented to place, oriented to time, oriented to situation, CN II-XII grossly intact. ABSENT: motor sensory deficit Psychiatric exam: PRESENT: appropriate affect, normal mood Skin exam: PRESENT: dry, warm, other - Superficial left perianal ulcer with local cellulitis noted by ER staff and physician. ABSENT: jaundice, rash, urticaria Results Laboratory Results: 03/16/19 13:55 03/16/19 13:55 03/16/19 03/16/19 03/16/19 13:55 13:55 15:32 WBC 9.4 RBC 4.68 Hgb 14.0 Hct 42.3 MCV 90 MCH 29.9 MCHC 33.2 RDW 13.4 Plt Count 192 Seg Neutrophils % 78.7 H VBG pH 7.32 VBG pCO2 66.3 H* VBG HCO3 33.4 H VBG Base Excess 4.6 Sodium 135.7 L Potassium 4.6 Chloride 97 L Carbon Dioxide 29 Anion Gap 10 BUN 15 Creatinine 0.51 L Est GFR ( Amer) > 60 Glucose 571 H* Calcium 8.8 Total Bilirubin 0.8 AST 30 Alkaline Phosphatase 360 H Total Protein 6.0 L Albumin 3.3 L Lipase 74.4 Urine Color Urine Appearance Urine pH Ur Specific [place] Urine Protein Urine Glucose (UA) Urine Ketones Urine Blood Urine RBC (Auto) 03/16/19 15:38 WBC RBC Hgb Hct MCV MCH MCHC RDW Plt Count Seg Neutrophils % VBG pH VBG pCO2 VBG HCO3 VBG Base Excess Sodium Potassium Chloride Carbon Dioxide Anion Gap BUN Creatinine Est GFR ( Amer) Glucose Calcium Total Bilirubin AST Alkaline Phosphatase Total Protein Albumin Lipase Urine Color YELLOW Urine Appearance CLEAR Urine pH 6.0 Ur Specific [place] 1.031 Urine Protein NEGATIVE Urine Glucose (UA) >=500 H Urine Ketones NEGATIVE Urine Blood SMALL H Urine RBC (Auto) 2 03/16/19 03/16/19 13:55 13:55 Creatine Kinase 42 CK-MB (CK-2) 1.04 Troponin I 0.032 Impressions: Abdomen/Pelvis CT 03/16/19 17:12 IMPRESSION: 1. There is mild hepatosplenomegaly. 2. The liver is heterogeneous. There appears to be focal fatty infiltration in the right lobe. There appear to be prominent intrahepatic ducts in the left lobe. Is there any clinical evidence of biliary obstruction? There are several small peripherally enhancing lesions concerning for metastases. Abdomen Ultrasound 03/16/19 19:11 IMPRESSION: 1. Coarsened hepatic echogenicity and intrahepatic, predominantly LEFT lobe biliary dilation of uncertain etiology. Previously identified rim-enhancing lesions within the LEFT lobe liver are not demonstrated on the provided sonographic images. Correlation with MRI is recommended. 2. Top normal size of the common bile duct measuring 8 mm. 3. Hydropic appearance of the gallbladder without findings to suggest gallbladder wall thickening, pericholecystic fluid. No focus of echogenicity is identified to suggest calculus, however focus of increased density is present within the proximal dependent gallbladder CT examination concerning for 4 mm calculus versus wall calcification. copyright 2010 [employer]- All Rights Reserved Assessment and Plan - Diagnosis (1) Abdominal pain Qualifiers: Abdominal location: upper abdomen, unspecified Qualified Code(s): R10.10 - Upper abdominal pain, unspecified Is this a current diagnosis for this admission?: Yes Plan: Patient's abdominal pain be treated with Nubain 5 to 10 mg IV every 3 hours on an as needed basis using a sliding scale. Surgical consultation with Dr. Jacobson will be obtained. Further evaluation and surgical intervention will be left to the surgical instruments inspector. (2) Hydrops of gallbladder Is this a current diagnosis for this admission?: Yes Plan: Surgical consultation with Dr. Jacobson will be obtained. Further evaluation and surgical intervention will be left to the surgical instruments inspector. (3) Cholelithiasis Qualifiers: Cholelithiasis location: gallbladder Cholecystitis presence: without cholecystitis Biliary obstruction: without biliary obstruction Qualified Code(s): K80.20 - Calculus of gallbladder without cholecystitis without obstruction Is this a current diagnosis for this admission?: Yes Plan: Surgical consultation with Dr. Jacobson will be obtained. Further evaluation and surgical intervention will be left to the surgical instruments inspector. (4) Abnormal abdominal CT scan Is this a current diagnosis for this admission?: Yes Plan: Surgical consultation with Dr. Jacobson will be obtained. Further evaluation and surgical intervention will be left to the surgical instruments inspector. (5) Cellulitis of buttock, left Is this a current diagnosis for this admission?: Yes Plan: Patient's cellulitis will be treated with Ancef 1 g IV every 8 hours initially pending input from Dr. Jacobson. (6) Diabetes mellitus type 2 in obese Is this a current diagnosis for this admission?: Yes Plan: Patient will be continued on her usual medication for diabetes and a diabetic diet. Before meals and at bedtime Accu-Cheks will be performed with sliding scale insulin for hyperglycemia and a hypoglycemic protocol in place. Hemoglobin A1c will be obtained to evaluate current therapy. (7) Hyperlipidemia Qualifiers: Hyperlipidemia type: unspecified Qualified Code(s): E78.5 - Hyperlipidemia, unspecified Is this a current diagnosis for this admission?: Yes Plan: A lipid profile will be obtained to evaluate current therapy. Patient will be continued on her usual hyperlipidemic regimen and a cardiac diet. (8) Essential hypertension Is this a current diagnosis for this admission?: Yes Plan: Patient be continued on his usual antihypertensive regiment and her blood pressure be monitored closely throughout her hospital course. She will be continued on a cardiac diet. (9) CHANELLE (obstructive sleep apnea) Is this a current diagnosis for this admission?: Yes Plan: Patient's obstructive sleep apnea will be treated with at bedtime and as needed CPAP using a pressure of 8. - Time Time Spent with patient: 25-34 minutes Medications reviewed and adjusted accordingly: Yes Anticipated discharge: Home - Inpatient Certification Based on my medical assessment, after consideration of the patient's comorbidities, presenting symptoms, or acuity I expect that the services needed warrant INPATIENT care.: Yes I certify that my determination is in accordance with my understanding of Medicare's requirements for reasonable and necessary INPATIENT services [42 CFR 412.3e].: Yes Medical Necessity: Significant Comorbidiites Make Outpatient Treatment Too Risky, Need Close Monitoring Due to Risk of Patient Decompensation, Need for Pain Control, Need for IV Antibiotics, Need for Surgery, Risk of Complication if Not Cared For in Hospital, Risk of Diagnosis Which Will Require Inpatient Eval/Care/Monitoring
[2019-03-17] MEDS: HEPARIN SOD (PORCINE) 5,000 UNIT/ML 1 ML VIAL SUBCUT SCH ×3 (05:24→22:18)
[2019-03-17 06:43] LABS: CHOLESTEROL 101.55 mg/dL (0-200); TRIGLYCERIDES 123 mg/dL (<150)
[2019-03-17 06:54] LABS: DIRECT LDL 65 mg/dL (<100)
[2019-03-17 07:00] LABS: FREE T3 3.17 pg/mL (2.77-5.27); FREE T4 (FREE THYROXINE) 1.58 ng/dL (0.78-2.19)
[2019-03-17 07:14] LABS: THYROID STIMULATING HORMONE 0.47 uIU/mL (0.47-4.68)
[2019-03-17] MEDS: INSULIN REG, HUMAN 100 UNIT/ML 3 ML VIAL (PYX) SUBCUT SCH ×4 (08:39→22:16)
[2019-03-17] MEDS: LEVALBUTEROL HCL NEB 1.25 MG/3 ML AMPUL NEB SCH ×2 (08:40→16:23)
[2019-03-17] MEDS: IPRATROPIUM BROMIDE 0.02% NEB 0.5 MG/2.5 ML AMPUL NEB SCH ×2 (08:40→16:23)
[2019-03-17] MEDS: BUDESONIDE NEB 0.5 MG/2 ML AMPUL NEB SCH ×3 (08:40→20:52)
[2019-03-17] MEDS: LISINOPRIL 10 MG TABLET PO SCH (08:41)
[2019-03-17] MEDS: HYDROCHLOROTHIAZIDE 12.5 MG TABLET PO SCH (08:42)
[2019-03-17] MEDS: SUCRALFATE 1 GM TABLET PO SCH ×4 (08:42→22:18)
[2019-03-17] MEDS: METOCLOPRAMIDE HCL 10 MG TABLET PO SCH ×4 (08:42→22:18)
[2019-03-17] MEDS: CARVEDILOL 6.25 MG TABLET PO SCH ×2 (11:43→17:23)
[2019-03-17] MEDS: CLONIDINE 0.2 MG/24 HR PATCH.TDWK TD SCH (11:44)
[2019-03-17] MEDS: DOCUSATE SODIUM 100 MG CAPSULE PO SCH ×2 (11:47→18:02)
[2019-03-17] MEDS: FAMOTIDINE 20 MG TABLET PO SCH ×2 (11:47→22:18)
--- NOTE | 2019-03-17 14:45 | RADIOLOGY REPORT (SQ) ---
EXAM DESCRIPTION: NM HIDA SCAN COMPLETED DATE/TIME: 03/17/2019 2:28 pm REASON FOR STUDY: acute cholecystitis COMPARISON: CT of the abdomen pelvis with contrast 03/16/2019 and ultrasound of the abdomen from . RADIONUCLIDE AND DOSE: DOSAGE RADIONUCLIDE: 5.3 millicuries Tc99m Mebrofenin. DOSAGE MORPHINE: None. The route of agent administration: Intravenous TECHNIQUE: Serial imaging right upper quadrant up to 60 minutes following injection of radionuclide. Patient imaged AP and Right Lateral. LIMITATIONS: None. FINDINGS: LIVER: Prompt hepatic uptake and excretion of the radiotracer without a photopenic defect. INTRA-HEPATIC BILE DUCTS: No dilate station. COMMON BILE DUCT: Activity within the small bowel within 20 minutes of injection. GALLBLADDER: Activity within the gallbladder within 60 minutes. OTHER: No other finding. IMPRESSION: NO SCINTIGRAPHIC EVIDENCE OF ACUTE CHOLECYSTITIS. TECHNICAL DOCUMENTATION: JOB ID: [id number] = 2011 [employer]- All Rights Reserved Reading location - IP/workstation name: [email or web address]
--- NOTE | 2019-03-17 16:46 | PDOC PROGRESS REPORT ---
Subjective Progress Note for:: 03/17/19 Subjective:: No adverse events overnight. No new complaints. Not complaining of any abdominal pain. Blood sugars have improved on some insulin. Reason For Visit: ABDOMINAL PAIN,DIABETED MELLITUS TYPE 2 Physical Exam Vital Signs: Temp Pulse Resp BP Pulse Ox 98.5 F 92 20 157/54 H 91 L 03/17/19 07:37 03/17/19 08:40 03/17/19 08:40 03/17/19 07:37 03/17/19 08:40 Intake & Output 03/16/19 03/17/19 03/18/19 06:59 06:59 06:59 Intake Total 2975 Balance 2975 Weight 134.9 kg General appearance: PRESENT: no acute distress, cooperative, disheveled, morbidly obese Respiratory exam: PRESENT: clear to auscultation ashley, symmetrical, unlabored. ABSENT: accessory muscle use, chest wall tenderness, crackles, prolonged expiratory phas, rhonchi, tachypnea, wheezes Cardiovascular exam: PRESENT: RRR, +S1, +S2 Pulses: PRESENT: normal carotid pulses Vascular exam: PRESENT: normal capillary refill GI/Abdominal exam: PRESENT: normal bowel sounds, soft. ABSENT: distended, guarding, rebound, tenderness Extremities exam: ABSENT: clubbing, pedal edema Musculoskeletal exam: PRESENT: normal inspection. ABSENT: deformity Neurological exam: PRESENT: alert, awake, oriented to person, oriented to place, oriented to situation Psychiatric exam: PRESENT: flat affect Skin exam: PRESENT: dry, warm Results Laboratory Results: 03/16/19 13:55 03/16/19 13:55 03/17/19 03/17/19 05:32 05:32 Triglycerides 123 Cholesterol 101.55 LDL Cholesterol Direct 65 VLDL Cholesterol 25.0 HDL Cholesterol 26 L TSH 0.47 Free T4 1.58 Free T3 pg/mL 3.17 03/16/19 03/16/19 13:55 13:55 Creatine Kinase 42 CK-MB (CK-2) 1.04 Troponin I 0.032 Impressions: Abdomen/Pelvis CT 03/16/19 17:12 IMPRESSION: 1. There is mild hepatosplenomegaly. 2. The liver is heterogeneous. There appears to be focal fatty infiltration in the right lobe. There appear to be prominent intrahepatic ducts in the left lobe. Is there any clinical evidence of biliary obstruction? There are several small peripherally enhancing lesions concerning for metastases. Abdomen Ultrasound 03/16/19 19:11 IMPRESSION: 1. Coarsened hepatic echogenicity and intrahepatic, predominantly LEFT lobe biliary dilation of uncertain etiology. Previously identified rim-enhancing lesions within the LEFT lobe liver are not demonstrated on the provided sonographic images. Correlation with MRI is recommended. 2. Top normal size of the common bile duct measuring 8 mm. 3. Hydropic appearance of the gallbladder without findings to suggest gallbladder wall thickening, pericholecystic fluid. No focus of echogenicity is identified to suggest calculus, however focus of increased density is present within the proximal dependent gallbladder CT examination concerning for 4 mm calculus versus wall calcification. copyright 2010 [employer]- All Rights Reserved Hepatobiliary Scan Nuclear Medicine 03/17/19 00:00 IMPRESSION: NO SCINTIGRAPHIC EVIDENCE OF ACUTE CHOLECYSTITIS. Assessment and Plan - Diagnosis (1) Abdominal pain Qualifiers: Abdominal location: upper abdomen, unspecified Qualified Code(s): R10.10 - Upper abdominal pain, unspecified Is this a current diagnosis for this admission?: Yes Plan: Not entirely sure of the etiology at this point. Surgeries been consulted. She did have some gallstones on the CT but she does appear to have cholecystitis. She also like she may have hydrops of the gallbladder. HIDA scan is pending. (2) Cellulitis of buttock, left Is this a current diagnosis for this admission?: Yes Plan: Have initiated antibiotics, will monitor response (3) Cholelithiasis Qualifiers: Cholelithiasis location: gallbladder Cholecystitis presence: without cholecystitis Biliary obstruction: without biliary obstruction Qualified Code(s): K80.20 - Calculus of gallbladder without cholecystitis without obstruction Is this a current diagnosis for this admission?: Yes Plan: Surgery consultation, HIDA scan pending (4) Diabetes mellitus type 2 in obese Is this a current diagnosis for this admission?: Yes Plan: We got her a diabetic diet and a sliding scale, blood sugars have improved (5) Essential hypertension Is this a current diagnosis for this admission?: Yes Plan: We will continue her home medications when she is allowed to take p.o. (6) Hydrops of gallbladder Is this a current diagnosis for this admission?: Yes Plan: Surgery consultation and HIDA scan pending - Time Time Spent with patient: 15-24 minutes
--- NOTE | 2019-03-17 20:43 | PDOC CONSULTATION ---
Consultation Consult Date: 03/17/19 Provider Consulted: SHAHBAZ CALHOUN Consult reason:: Hydrops of gallbladder with possible stone noted on ultrasound History of Present Illness Admission Date/PCP: 03/16/19 23:07 History of Present Illness: DIA RAMIREZ is a 68 year old female with history of diabetes mellitus and morbid obesity complain of abdominal pains past few days and upper abdominal pains and went to ED because of this. CAT scan of the abdomen was done which showed possible tiny focus of 7mm suggesting calculus on the gallbladder. Subsequent ultrasound of the gallbladder was done which showed dilated intrahepatic ducts on the left biliary system and common bile duct about 8mm. Patient denies any pains in the right upper quadrant. Admits to having nausea but no vomiting. Her blood sugars noted to be 571 Denies fever or chills Past Medical History Cardiac Medical History: Reports: Hyperlipidema, Hypertension Denies: Congestive Heart Failure, Coronary Artery Disease, Myocardial Infarction, Pulmonary Embolism Pulmonary Medical History: Reports: Asthma, Chronic Obstructive Pulmonary Disease (COPD), Sleep Apnea EENT Medical History: Reports: Eyes - Prescription lenses Denies: Cataracts, Ears - Hearing aids Neurological Medical History: Denies: Hemorrhagic CVA, Ischemic CVA, Seizures Endocrine Medical History: Reports: Diabetes Mellitus Type 2, Obesity Denies: Diabetes Mellitus Type 1, Hyperthyroidism, Hypothyroidism Renal/ Medical History: Denies: Chronic Kidney Disease, Nephrolithiasis Malignancy Medical History: Reports: None GI Medical History: Reports: Gastroesophageal Reflux Disease Denies: Cirrhosis, Crohn's Disease, Hepatitis, Peptic Ulcer Disease, Ulcerative Colitis Musculoskeltal Medical History: Reports: Arthritis Denies: Gout Skin Medical History: Denies: Eczema, Psoriasis Psychiatric Medical History: Reports: General Anxiety Disorder, Tobacco Dependency Denies: Alcohol Dependency, Depression, Substance Abuse Traumatic Medical History: Reports: None Hematology: Denies: Anemia, Bleeding Tendencies Infectious Medical History: Reports: None Past Surgical History Past Surgical History: Reports: Appendectomy, Cholecystectomy, Tonsillectomy, Tubal Ligation Social History Lives with: Homeless Smoking Status: Former Smoker Electronic Cigarette use?: No Frequency of Alcohol Use: Rare Hx Recreational Drug Use: No Drugs: None Hx Prescription Drug Abuse: No - Advance Directive Resuscitation Status: Full Code Family History Family History: Arthritis, CAD, DM, Hypertension. denies: Malignancy Parental Family History Reviewed: Yes Children Family History Reviewed: No Sibling(s) Family History Reviewed.: No Medication/Allergy Home Medications: Carvedilol [Coreg 12.5 mg Tablet] 12.5 mg PO Q12 03/17/19 Chlorthalidone [Hygroton 25 mg Tablet] 25 mg PO DAILY 03/17/19 Fluticasone Propionate [Flonase Nasal [place]cadia 50 Mcg/[place]cadia 16 gm] 2 spray NASL DAILY 03/17/19 Losartan Potassium [Cozaar 100 mg Tablet] 100 mg PO DAILY 03/17/19 Meclizine HCl [Antivert 12.5 mg Tablet] 12.5 mg PO Q8HP PRN 03/17/19 Meloxicam [Mobic] 7.5 mg PO DAILY 03/17/19 Oxycodone HCl/Acetaminophen [Percocet 5-325 mg Tablet] 1 tab PO Q8 03/17/19 Ranitidine HCl [Zantac] 150 mg PO BID 03/17/19 Rosuvastatin Calcium [Crestor 10 mg Tablet] 10 mg PO QHS 03/17/19 Spironolactone [Aldactone 25 mg Tablet] 25 mg PO DAILY 03/17/19 Allergies/Adverse Reactions: sulfamethoxazole [From Septra] Allergy (Verified 01/07/17 09:26) trimethoprim [From Janra] Allergy (Verified 01/07/17 09:26) morphine Adverse Reaction (Verified 01/07/17 09:26) Review of Systems Constitutional: PRESENT: as per HPI Gastrointestinal: PRESENT: abdominal pain, nausea Physical Exam Vital Signs: Temp Pulse Resp BP Pulse Ox 99.0 F 82 18 173/52 H 93 03/17/19 19:50 03/17/19 19:56 03/17/19 19:50 03/17/19 19:56 03/17/19 19:56 Intake & Output 03/16/19 03/17/19 03/18/19 06:59 06:59 06:59 Intake Total 2975 1890 Balance 2975 1890 Weight 134.9 kg General appearance: PRESENT: morbidly obese Head exam: PRESENT: atraumatic Neck exam: PRESENT: full ROM Respiratory exam: PRESENT: clear to auscultation ashley Cardiovascular exam: PRESENT: RRR Pulses: PRESENT: normal radial pulses Vascular exam: PRESENT: normal capillary refill GI/Abdominal exam: PRESENT: soft - Nontender Rectal exam: PRESENT: other - tender fluctuant area left marian-rectal site Skin exam: PRESENT: normal color, warm Results Laboratory Results: 03/16/19 13:55 03/16/19 13:55 03/17/19 03/17/19 05:32 05:32 Triglycerides 123 Cholesterol 101.55 LDL Cholesterol Direct 65 VLDL Cholesterol 25.0 HDL Cholesterol 26 L TSH 0.47 Free T4 1.58 Free T3 pg/mL 3.17 03/16/19 03/16/19 13:55 13:55 Creatine Kinase 42 CK-MB (CK-2) 1.04 Troponin I 0.032 Impressions: Abdomen/Pelvis CT 03/16/19 17:12 IMPRESSION: 1. There is mild hepatosplenomegaly. 2. The liver is heterogeneous. There appears to be focal fatty infiltration in the right lobe. There appear to be prominent intrahepatic ducts in the left lobe. Is there any clinical evidence of biliary obstruction? There are several small peripherally enhancing lesions concerning for metastases. Abdomen Ultrasound 03/16/19 19:11 IMPRESSION: 1. Coarsened hepatic echogenicity and intrahepatic, predominantly LEFT lobe biliary dilation of uncertain etiology. Previously identified rim-enhancing lesions within the LEFT lobe liver are not demonstrated on the provided sonographic images. Correlation with MRI is recommended. 2. Top normal size of the common bile duct measuring 8 mm. 3. Hydropic appearance of the gallbladder without findings to suggest gallbladder wall thickening, pericholecystic fluid. No focus of echogenicity is identified to suggest calculus, however focus of increased density is present within the proximal dependent gallbladder CT examination concerning for 4 mm calculus versus wall calcification. copyright 2011 [employer]- All Rights Reserved Hepatobiliary Scan Nuclear Medicine 03/17/19 00:00 IMPRESSION: NO SCINTIGRAPHIC EVIDENCE OF ACUTE CHOLECYSTITIS. Assessment & Plan - Diagnosis (1) Abdominal pain Qualifiers: Abdominal location: upper abdomen, unspecified Qualified Code(s): R10.10 - Upper abdominal pain, unspecified Is this a current diagnosis for this admission?: Yes (2) Cellulitis of buttock, left Is this a current diagnosis for this admission?: Yes (3) Diabetes mellitus type 2 in obese Is this a current diagnosis for this admission?: Yes (4) UTI (urinary tract infection) Qualifiers: Urinary tract infection type: site unspecified Hematuria presence: with hematuria Qualified Code(s): N39.0 - Urinary tract infection, site not specified Is this a current diagnosis for this admission?: Yes (5) left marian-rectal abscess Is this a current diagnosis for this admission?: Yes - Time Time Spent: 30 to 50 Minutes - Inpatient Certification Medical Necessity: Need For IV Fluids, Need for IV Antibiotics - Plan Summary Plan Summary: HIDA scan was requested today and was done and showed normal findings without evidence of acute cholecystitis Schedule I&D left marian-rectal abscess tomorrow Continue IV antibiotics for Marian-rectal abscess
[2019-03-18] MEDS ORDERED: PIPERACILLIN/TAZOBACTAM 3.375 GM VIAL IV SCH
[2019-03-18] MEDS: IPRATROPIUM BROMIDE 0.02% NEB 0.5 MG/2.5 ML AMPUL NEB SCH ×3 (00:32→17:22)
[2019-03-18] MEDS: LEVALBUTEROL HCL NEB 1.25 MG/3 ML AMPUL NEB SCH ×3 (00:32→17:22)
[2019-03-18] MEDS: PIPERACILLIN SODIUM/TAZOBACTAM 3.375 GM in NORMAL SALINE 100 ML IV SCH ×5 (01:10→23:58)
[2019-03-18] MEDS: HYDRALAZINE HCL INJ/PF 20 MG/1 ML SDV IV PRN ×2 (01:11→15:42)
[2019-03-18] MEDS: ONDANSETRON HCL INJ/PF 4 MG/2 ML SDV IV PRN (03:05)
[2019-03-18] MEDS: NALBUPHINE HCL INJ 10 MG/1 ML AMPULE IV PRN ×2 (03:06→23:57)
[2019-03-18] MEDS: HEPARIN SOD (PORCINE) 5,000 UNIT/ML 1 ML VIAL SUBCUT SCH ×3 (06:22→21:33)
[2019-03-18 07:32] LABS: HEMATOCRIT 37.1 % (36.0-47.0); HEMOGLOBIN 12.2 g/dL (12.0-15.5); MEAN CORPUSCULAR HEMOGLOBIN 29.2 pg (27.0-33.4); MEAN CORPUSCULAR VOLUME 88 fl (80-97); PLATELET COUNT 186 10^3/uL (150-450); RED BLOOD COUNT 4.19 10^6/uL (3.72-5.28); WHITE BLOOD COUNT 7.9 10^3/uL (4.0-10.5)
[2019-03-18] MEDS ORDERED: INFLUENZA QUAD (6MOS+) 2019-20 VAC 0.5 ML SYR IM ONE (08:00)
[2019-03-18] MEDS: BUDESONIDE NEB 0.5 MG/2 ML AMPUL NEB SCH ×2 (08:12→20:05)
[2019-03-18 08:40] LABS: ALBUMIN 2.6 g/dL (3.5-5.0); ALKALINE PHOSPHATASE 263 U/L (38-126); ANION GAP 8 (5-19); ASPARTATE AMINO TRANSFERASE 18 U/L (14-36); BILIRUBIN,DIRECT 0.3 mg/dL (0.0-0.4); BILIRUBIN,TOTAL 0.8 mg/dL (0.2-1.3); BLOOD UREA NITROGEN 18 mg/dL (7-20); CALCIUM 8.4 mg/dL (8.4-10.2); CARBON DIOXIDE 30 mmol/L (22-30); CHLORIDE 99 mmol/L (98-107); GLUCOSE 331 mg/dL (75-110); POTASSIUM 3.9 mmol/L (3.6-5.0)
[2019-03-18] MEDS: HYDROCHLOROTHIAZIDE 12.5 MG TABLET PO SCH (09:11)
[2019-03-18] MEDS: INSULIN REG, HUMAN 100 UNIT/ML 3 ML VIAL (PYX) SUBCUT SCH ×4 (09:12→21:32)
[2019-03-18] MEDS: LISINOPRIL 10 MG TABLET PO SCH (09:14)
[2019-03-18] MEDS: SUCRALFATE 1 GM TABLET PO SCH ×4 (09:15→21:33)
[2019-03-18] MEDS: METOCLOPRAMIDE HCL 10 MG TABLET PO SCH ×4 (09:15→21:34)
[2019-03-18] MEDS: CARVEDILOL 6.25 MG TABLET PO SCH ×2 (09:17→17:27)
[2019-03-18] MEDS: FAMOTIDINE 20 MG TABLET PO SCH ×2 (09:17→21:34)
[2019-03-18] MEDS: DOCUSATE SODIUM 100 MG CAPSULE PO SCH ×2 (09:17→17:27)
--- NOTE | 2019-03-18 09:39 | PDOC PROGRESS REPORT ---
Subjective Progress Note for:: 03/18/19 Subjective:: This is a morbidly obese 68-year-old female with a large perirectal abscess. She complains of a 2-week history of rectal pain. She denies any drainage. She denies fevers, chills, shortness of breath, chest pain, headache, dizziness. She does report abdominal pain due to "not being able to eat". She also reports malaise and fatigue. Reason For Visit: ABDOMINAL PAIN,DIABETED MELLITUS TYPE 2 Physical Exam Vital Signs: Temp Pulse Resp BP Pulse Ox 98.1 F 80 17 192/58 H 95 03/18/19 00:23 03/18/19 00:23 03/18/19 00:23 03/18/19 00:23 03/18/19 00:23 Intake & Output 03/17/19 03/18/19 03/19/19 06:59 06:59 06:59 Intake Total 2975 1989 Balance 2975 1989 100 Weight 134.9 kg 135 kg General appearance: PRESENT: morbidly obese Head exam: PRESENT: atraumatic, normocephalic Eye exam: PRESENT: EOMI, PERRLA. ABSENT: scleral icterus Mouth exam: PRESENT: moist, neck supple Neck exam: ABSENT: meningismus, tenderness, thyromegaly, tracheal deviation Respiratory exam: PRESENT: unlabored. ABSENT: chest wall tenderness, tachypnea, wheezes Pulses: PRESENT: normal radial pulses Vascular exam: PRESENT: normal capillary refill. ABSENT: pallor GI/Abdominal exam: PRESENT: soft. ABSENT: distended, tenderness Rectal exam: PRESENT: tenderness, other - Approximately 3 cm fluctuant area in the left perirectal position, approximately 9:00. Extremities exam: ABSENT: clubbing Musculoskeletal exam: ABSENT: deformity Neurological exam: PRESENT: alert, awake, oriented to person, oriented to place, oriented to time, oriented to situation, CN II-XII grossly intact Psychiatric exam: ABSENT: agitated, anxious, depressed Focused psych exam: ABSENT: delusional Skin exam: ABSENT: cyanosis, jaundice Results Laboratory Results: 03/18/19 06:56 03/18/19 06:56 03/18/19 03/18/19 06:56 06:56 WBC 7.9 RBC 4.19 Hgb 12.2 Hct 37.1 MCV 88 MCH 29.2 MCHC 33.0 RDW 13.0 Plt Count 186 Seg Neutrophils % Not Reportable Sodium 136.6 L Potassium 3.9 Chloride 99 Carbon Dioxide 30 Anion Gap 8 BUN 18 Creatinine 0.50 L Est GFR ( Amer) > 60 Glucose 331 H Calcium 8.4 Magnesium 1.8 Total Bilirubin 0.8 AST 18 Alkaline Phosphatase 263 H Total Protein 5.0 L Albumin 2.6 L 03/16/19 15:38 Catheterized Urine Urine Culture - Final Escherichia Coli 03/16/19 03/16/19 13:55 13:55 Creatine Kinase 42 CK-MB (CK-2) 1.04 Troponin I 0.032 Impressions: Abdomen/Pelvis CT 03/16/19 17:12 IMPRESSION: 1. There is mild hepatosplenomegaly. 2. The liver is heterogeneous. There appears to be focal fatty infiltration in the right lobe. There appear to be prominent intrahepatic ducts in the left lobe. Is there any clinical evidence of biliary obstruction? There are several small peripherally enhancing lesions concerning for metastases. Abdomen Ultrasound 03/16/19 19:11 IMPRESSION: 1. Coarsened hepatic echogenicity and intrahepatic, predominantly LEFT lobe biliary dilation of uncertain etiology. Previously identified rim-enhancing lesions within the LEFT lobe liver are not demonstrated on the provided sonographic images. Correlation with MRI is recommended. 2. Top normal size of the common bile duct measuring 8 mm. 3. Hydropic appearance of the gallbladder without findings to suggest gallbladder wall thickening, pericholecystic fluid. No focus of echogenicity is identified to suggest calculus, however focus of increased density is present within the proximal dependent gallbladder CT examination concerning for 4 mm calculus versus wall calcification. copyright 2011 [employer]- All Rights Reserved Hepatobiliary Scan Nuclear Medicine 03/17/19 00:00 IMPRESSION: NO SCINTIGRAPHIC EVIDENCE OF ACUTE CHOLECYSTITIS. Assessment & Plan - Diagnosis (1) Perirectal abscess Is this a current diagnosis for this admission?: Yes - Time Time Spent with patient: Less than 15 minutes - Plan Summary Plan Summary: This is a 68-year-old morbidly obese female with a 3 cm fluctuant abscess in the perianal region on the left. I have recommended incision and drainage of the abscess. The patient is currently n.p.o. Plan for operative incision and drainage today. This has been discussed with the patient at length. Risks/benefits discussed, informed consent obtained, and all questions answered.
[2019-03-18 10:05] LABS: ABSOLUTE LYMPHOCYTES# (MANUAL) 1.4 10^3/uL (0.5-4.7); ABSOLUTE MONOCYTES # (MANUAL) 0.7 10^3/uL (0.1-1.4); BASOPHILS % (MANUAL) 0 % (0-2); EOSINOPHILS % (MANUAL) 5 % (0-6); LYMPHOCYTES % (MANUAL) 16 % (13-45); MONOCYTES % (MANUAL) 9 % (3-13); SEGMENTED NEUTROPHILS % (MAN) 68 % (42-78); TOTAL CELLS COUNTED 100
[2019-03-18 10:06] LABS: PLATELET COMMENT ADEQUATE; POLYCHROMASIA SLIGHT; TOXIC GRANULATION 1+
[2019-03-18] MEDS ORDERED: FENTANYL CITRATE INJ/PF 100 MCG/2 ML AMPUL ONE ×2 (12:23→13:40)
[2019-03-18] MEDS ORDERED: MIDAZOLAM 2 MG/2 ML INJ ONE (12:23)
[2019-03-18] MEDS ORDERED: LIDOCAINE 2% INJ-PF (20 MG/ML) 10 ML AMPUL ONE (12:23)
[2019-03-18] MEDS ORDERED: PROPOFOL INJ 200 MG/20 ML VIAL IV ONE (12:24)
[2019-03-18] MEDS ORDERED: BUPIVACAINE HCL 0.25 % INJ/PF (2.5 MG/1 ML) 30 ML VIAL ONE (12:54)
[2019-03-18] MEDS ORDERED: DIPHENHYDRAMINE HCL 50 MG/ML VIAL IV PRN (12:57)
[2019-03-18] MEDS ORDERED: FENTANYL CITRATE INJ/PF 100 MCG/2 ML AMPUL IV PRN ×3 (12:57)
[2019-03-18] MEDS ORDERED: MEPERIDINE HCL/PF INJ 25 MG/1 ML DISP.SYRIN IV PRN (12:57)
[2019-03-18] MEDS ORDERED: PROMETHAZINE HCL INJ 25 MG/1 ML VIAL IV PRN ×2 (12:57)
[2019-03-18] MEDS ORDERED: ONDANSETRON HCL INJ/PF 4 MG/2 ML SDV IV PRN (12:57)
--- NOTE | 2019-03-18 17:35 | PDOC PROGRESS REPORT ---
Subjective Progress Note for:: 03/18/19 Subjective:: No adverse events overnight. No new complaints. No abdominal pain. She is scheduled to have an I&D of her rectal abscess today. Reason For Visit: ABDOMINAL PAIN,DIABETED MELLITUS TYPE 2 Physical Exam Vital Signs: Temp Pulse Resp BP Pulse Ox 98.4 F 68 17 140/51 H 98 03/18/19 14:09 03/18/19 14:09 03/18/19 14:09 03/18/19 14:09 03/18/19 14:09 Intake & Output 03/17/19 03/18/19 03/19/19 06:59 06:59 06:59 Intake Total 2975 1989 300 Output Total 5 Balance 2975 1989 295 Weight 134.9 kg 135 kg General appearance: PRESENT: no acute distress, cooperative, disheveled, morbidly obese Respiratory exam: PRESENT: clear to auscultation ashley, symmetrical, unlabored. ABSENT: accessory muscle use, chest wall tenderness, crackles, prolonged expiratory phas, rhonchi, tachypnea, wheezes Cardiovascular exam: PRESENT: RRR, +S1, +S2 Pulses: PRESENT: normal carotid pulses Vascular exam: PRESENT: normal capillary refill GI/Abdominal exam: PRESENT: normal bowel sounds, soft. ABSENT: distended, guarding, rebound, tenderness Extremities exam: ABSENT: clubbing, pedal edema Musculoskeletal exam: PRESENT: normal inspection. ABSENT: deformity Neurological exam: PRESENT: alert, awake, oriented to person, oriented to place, oriented to situation Psychiatric exam: PRESENT: flat affect Skin exam: PRESENT: dry, warm Results Laboratory Results: 03/18/19 06:56 03/18/19 06:56 03/18/19 03/18/19 06:56 06:56 WBC 7.9 RBC 4.19 Hgb 12.2 Hct 37.1 MCV 88 MCH 29.2 MCHC 33.0 RDW 13.0 Plt Count 186 Seg Neutrophils % Not Reportable Sodium 136.6 L Potassium 3.9 Chloride 99 Carbon Dioxide 30 Anion Gap 8 BUN 18 Creatinine 0.50 L Est GFR ( Amer) > 60 Glucose 331 H Calcium 8.4 Magnesium 1.8 Total Bilirubin 0.8 AST 18 Alkaline Phosphatase 263 H Total Protein 5.0 L Albumin 2.6 L 03/16/19 15:38 Catheterized Urine Urine Culture - Final Escherichia Coli 03/16/19 03/16/19 13:55 13:55 Creatine Kinase 42 CK-MB (CK-2) 1.04 Troponin I 0.032 Impressions: Abdomen/Pelvis CT 03/16/19 17:12 IMPRESSION: 1. There is mild hepatosplenomegaly. 2. The liver is heterogeneous. There appears to be focal fatty infiltration in the right lobe. There appear to be prominent intrahepatic ducts in the left lobe. Is there any clinical evidence of biliary obstruction? There are several small peripherally enhancing lesions concerning for metastases. Abdomen Ultrasound 03/16/19 19:11 IMPRESSION: 1. Coarsened hepatic echogenicity and intrahepatic, predominantly LEFT lobe biliary dilation of uncertain etiology. Previously identified rim-enhancing lesions within the LEFT lobe liver are not demonstrated on the provided sonographic images. Correlation with MRI is recommended. 2. Top normal size of the common bile duct measuring 8 mm. 3. Hydropic appearance of the gallbladder without findings to suggest gallbladder wall thickening, pericholecystic fluid. No focus of echogenicity is identified to suggest calculus, however focus of increased density is present within the proximal dependent gallbladder CT examination concerning for 4 mm calculus versus wall calcification. copyright 2011 [employer]- All Rights Reserved Hepatobiliary Scan Nuclear Medicine 03/17/19 00:00 IMPRESSION: NO SCINTIGRAPHIC EVIDENCE OF ACUTE CHOLECYSTITIS. Assessment and Plan - Diagnosis (1) Abdominal pain Qualifiers: Abdominal location: upper abdomen, unspecified Qualified Code(s): R10.10 - Upper abdominal pain, unspecified Is this a current diagnosis for this admission?: Yes Plan: Resolved (2) Cellulitis of buttock, left Is this a current diagnosis for this admission?: Yes Plan: Currently on Zosyn, cultures pending (3) Cholelithiasis Qualifiers: Cholelithiasis location: gallbladder Cholecystitis presence: without cholecystitis Biliary obstruction: without biliary obstruction Qualified Code(s): K80.20 - Calculus of gallbladder without cholecystitis without obstruction Is this a current diagnosis for this admission?: Yes Plan: Nonobstructive, no signs of cholecystitis (4) Diabetes mellitus type 2 in obese Is this a current diagnosis for this admission?: Yes Plan: We got her a diabetic diet and a sliding scale, blood sugars have improved (5) Essential hypertension Is this a current diagnosis for this admission?: Yes Plan: We will continue her home medications when she is allowed to take p.o. (6) Hydrops of gallbladder Is this a current diagnosis for this admission?: Yes Plan: Nothing to do per surgery - Time Time Spent with patient: 15-24 minutes
--- NOTE | 2019-03-18 19:59 | Operative Report ---
Nonrecallable Operative Report DATE OF SURGERY: 03/18/19 PREOPERATIVE DIAGNOSIS: Perianal abscess. POSTOPERATIVE DIAGNOSIS: Same as above, without obvious connection to the rectum. OPERATION: Incision and drainage of a 3 cm perianal abscess. SURGEON: ROBERTO WEST ANESTHESIA: LMAC TISSUE REMOVED OR ALTERED: 3 cm perianal abscess, wound culture taken. COMPLICATIONS: None apparent ESTIMATED BLOOD LOSS: Minimal PROCEDURE: Drains/implants: 4 x 4's soaked in Betadine. Procedure in detail: After informed consent was obtained, the patient was brought to the operating room and laid in the left lateral decubitus position. The area of the anus and perianal skin were prepped and draped in a normal sterile fashion. A 15 blade scalpel was used to make an incision over the area of maximal fluctuance. This was done after quarter percent bupivacaine was injected into the perianal skin. There was marginal skin present overlying the 3 cm abscess cavity. All marginal skin was debrided away sharply and excisionally. This included skin and fatty soft tissue. Once all involved/infected skin and soft tissue was removed, the cavity was inspected and cleaned. A digital rectal exam was performed, showing no evidence of fistulous connection. Once this was confirmed, the cavity was packed with Betadine soaked 4 x 4's and covered with a dressing. The procedure was at this time concluded. All sponge, instrument, and needle counts were correct x2. Condition: Stable.
[2019-03-18] MEDS ORDERED: INSULIN GLARGINE,HUM.REC.ANLOG 1,000 UNIT/10 ML VIAL (PYX) SUBCUT ONE (21:24)
[2019-03-18] MEDS ORDERED: INSULIN GLARGINE,HUM.REC.ANLOG 1,000 UNIT/10 ML VIAL (PYX) SUBCUT SCH (22:00)
[2019-03-19] MEDS: IPRATROPIUM BROMIDE 0.02% NEB 0.5 MG/2.5 ML AMPUL NEB SCH ×3 (00:01→17:41)
[2019-03-19] MEDS: LEVALBUTEROL HCL NEB 1.25 MG/3 ML AMPUL NEB SCH ×3 (00:01→17:41)
[2019-03-19 05:57] LABS: HEMATOCRIT 37.3 % (36.0-47.0); HEMOGLOBIN 12.4 g/dL (12.0-15.5); MEAN CORPUSCULAR HEMOGLOBIN 29.1 pg (27.0-33.4); MEAN CORPUSCULAR HGB CONC 33.1 g/dL (32.0-36.0); MEAN CORPUSCULAR VOLUME 88 fl (80-97); PLATELET COUNT 194 10^3/uL (150-450); RED BLOOD COUNT 4.25 10^6/uL (3.72-5.28); RED CELL DISTRIBUTION WIDTH 13.4 % (11.5-14.0); WHITE BLOOD COUNT 7.5 10^3/uL (4.0-10.5)
[2019-03-19 06:21] LABS: ALBUMIN 2.6 g/dL (3.5-5.0); ALKALINE PHOSPHATASE 231 U/L (38-126); ASPARTATE AMINO TRANSFERASE 19 U/L (14-36); BILIRUBIN,DIRECT 0.3 mg/dL (0.0-0.4); BILIRUBIN,TOTAL 0.8 mg/dL (0.2-1.3); TOTAL PROTEIN 5.2 g/dL (6.3-8.2)
[2019-03-19] MEDS: HEPARIN SOD (PORCINE) 5,000 UNIT/ML 1 ML VIAL SUBCUT SCH ×3 (06:50→21:40)
[2019-03-19] MEDS: NALBUPHINE HCL INJ 10 MG/1 ML AMPULE IV PRN ×3 (06:51→21:39)
[2019-03-19] MEDS: PIPERACILLIN SODIUM/TAZOBACTAM 3.375 GM in NORMAL SALINE 100 ML IV SCH ×3 (06:51→17:02)
[2019-03-19] MEDS: INSULIN REG, HUMAN 100 UNIT/ML 3 ML VIAL (PYX) SUBCUT SCH ×4 (08:26→21:41)
[2019-03-19] MEDS: HYDROCHLOROTHIAZIDE 12.5 MG TABLET PO SCH (08:28)
[2019-03-19] MEDS: METOCLOPRAMIDE HCL 10 MG TABLET PO SCH ×4 (08:28→21:42)
[2019-03-19] MEDS: LISINOPRIL 10 MG TABLET PO SCH (08:28)
[2019-03-19] MEDS: SUCRALFATE 1 GM TABLET PO SCH ×4 (08:28→21:42)
[2019-03-19] MEDS: BUDESONIDE NEB 0.5 MG/2 ML AMPUL NEB SCH ×2 (08:36→21:24)
[2019-03-19] MEDS: CARVEDILOL 6.25 MG TABLET PO SCH ×2 (10:31→17:07)
[2019-03-19] MEDS: FAMOTIDINE 20 MG TABLET PO SCH ×2 (10:32→21:40)
[2019-03-19] MEDS: DOCUSATE SODIUM 100 MG CAPSULE PO SCH ×2 (10:32→17:07)
--- NOTE | 2019-03-19 16:55 | PDOC PROGRESS REPORT ---
Subjective Progress Note for:: 03/19/19 Subjective:: No adverse events overnight. No new complaints. She says it does not hurt as bad in her perianal area as it had previously. Reason For Visit: ABDOMINAL PAIN,DIABETED MELLITUS TYPE 2 Physical Exam Vital Signs: Temp Pulse Resp BP Pulse Ox 98.4 F 67 20 139/34 H 95 03/19/19 15:52 03/19/19 15:52 03/19/19 15:52 03/19/19 15:52 03/19/19 15:52 Intake & Output 03/18/19 03/19/19 03/20/19 06:59 06:59 06:59 Intake Total 1989 980 200 Output Total 5 Balance 1989 975 200 Weight 135 kg 134 kg General appearance: PRESENT: no acute distress, cooperative, disheveled, morbidly obese Respiratory exam: PRESENT: clear to auscultation ashley, symmetrical, unlabored. ABSENT: accessory muscle use, chest wall tenderness, crackles, prolonged expiratory phas, rhonchi, tachypnea, wheezes Cardiovascular exam: PRESENT: RRR, +S1, +S2 Pulses: PRESENT: normal carotid pulses Vascular exam: PRESENT: normal capillary refill GI/Abdominal exam: PRESENT: normal bowel sounds, soft. ABSENT: distended, guard ing, rebound, tenderness Extremities exam: ABSENT: clubbing, pedal edema Musculoskeletal exam: PRESENT: normal inspection. ABSENT: deformity Neurological exam: PRESENT: alert, awake, oriented to person, oriented to place, oriented to situation Psychiatric exam: PRESENT: flat affect Skin exam: PRESENT: dry, warm Results Laboratory Results: 03/19/19 05:07 03/18/19 06:56 03/19/19 03/19/19 05:07 05:07 WBC 7.5 RBC 4.25 Hgb 12.4 Hct 37.3 MCV 88 MCH 29.1 MCHC 33.1 RDW 13.4 Plt Count 194 Magnesium 1.8 Total Bilirubin 0.8 AST 19 Alkaline Phosphatase 231 H Total Protein 5.2 L Albumin 2.6 L 03/16/19 03/16/19 13:55 13:55 Creatine Kinase 42 CK-MB (CK-2) 1.04 Troponin I 0.032 Impressions: Abdomen/Pelvis CT 03/16/19 17:12 IMPRESSION: 1. There is mild hepatosplenomegaly. 2. The liver is heterogeneous. There appears to be focal fatty infiltration in the right lobe. There appear to be prominent intrahepatic ducts in the left lobe. Is there any clinical evidence of biliary obstruction? There are several small peripherally enhancing lesions concerning for metastases. Abdomen Ultrasound 03/16/19 19:11 IMPRESSION: 1. Coarsened hepatic echogenicity and intrahepatic, predominantly LEFT lobe biliary dilation of uncertain etiology. Previously identified rim-enhancing lesions within the LEFT lobe liver are not demonstrated on the provided sonographic images. Correlation with MRI is recommended. 2. Top normal size of the common bile duct measuring 8 mm. 3. Hydropic appearance of the gallbladder without findings to suggest gallbladder wall thickening, pericholecystic fluid. No focus of echogenicity is identified to suggest calculus, however focus of increased density is present within the proximal dependent gallbladder CT examination concerning for 4 mm calculus versus wall calcification. copyright 2010 [employer]- All Rights Reserved Hepatobiliary Scan Nuclear Medicine 03/17/19 00:00 IMPRESSION: NO SCINTIGRAPHIC EVIDENCE OF ACUTE CHOLECYSTITIS. Assessment and Plan - Diagnosis (1) Abdominal pain Qualifiers: Abdominal location: upper abdomen, unspecified Qualified Code(s): R10.10 - Upper abdominal pain, unspecified Is this a current diagnosis for this admission?: Yes Plan: Resolved (2) Cellulitis of buttock, left Is this a current diagnosis for this admission?: Yes Plan: Currently on Zosyn, cultures pending. Status post I&D of perianal abscess. (3) Cholelithiasis Qualifiers: Cholelithiasis location: gallbladder Cholecystitis presence: without cholecystitis Biliary obstruction: without biliary obstruction Qualified Code(s): K80.20 - Calculus of gallbladder without cholecystitis without obstruction Is this a current diagnosis for this admission?: Yes Plan: Nonobstructive, no signs of cholecystitis (4) Diabetes mellitus type 2 in obese Is this a current diagnosis for this admission?: Yes Plan: We got her a diabetic diet and a sliding scale, blood sugars have improved (5) Essential hypertension Is this a current diagnosis for this admission?: Yes Plan: We will continue her home medications when she is allowed to take p.o. (6) Hydrops of gallbladder Is this a current diagnosis for this admission?: Yes Plan: Nothing to do per surgery - Time Time Spent with patient: 15-24 minutes
--- NOTE | 2019-03-19 20:16 | PDOC PROGRESS REPORT ---
Subjective Progress Note for:: 03/19/19 Subjective:: Less pains at the perianal area Reason For Visit: ABDOMINAL PAIN,DIABETED MELLITUS TYPE 2 Physical Exam Vital Signs: Temp Pulse Resp BP Pulse Ox 98.4 F 85 20 139/34 H 93 03/19/19 15:52 03/19/19 17:47 03/19/19 17:47 03/19/19 15:52 03/19/19 17:47 Intake & Output 03/18/19 03/19/19 03/20/19 06:59 06:59 06:59 Intake Total 1989 980 900 Output Total 5 Balance 1989 975 900 Weight 135 kg 134 kg Exam: Packing was removed and appears to be dry. She was then started on sitz bath or shower with a warm water flushing to the perianal and incision and drainage site. Results Laboratory Results: 03/19/19 05:07 03/18/19 06:56 03/19/19 03/19/19 05:07 05:07 WBC 7.5 RBC 4.25 Hgb 12.4 Hct 37.3 MCV 88 MCH 29.1 MCHC 33.1 RDW 13.4 Plt Count 194 Magnesium 1.8 Total Bilirubin 0.8 AST 19 Alkaline Phosphatase 231 H Total Protein 5.2 L Albumin 2.6 L 03/16/19 03/16/19 13:55 13:55 Creatine Kinase 42 CK-MB (CK-2) 1.04 Troponin I 0.032 Impressions: Abdomen/Pelvis CT 03/16/19 17:12 IMPRESSION: 1. There is mild hepatosplenomegaly. 2. The liver is heterogeneous. There appears to be focal fatty infiltration in the right lobe. There appear to be prominent intrahepatic ducts in the left lobe. Is there any clinical evidence of biliary obstruction? There are several small peripherally enhancing lesions concerning for metastases. Abdomen Ultrasound 03/16/19 19:11 IMPRESSION: 1. Coarsened hepatic echogenicity and intrahepatic, predominantly LEFT lobe biliary dilation of uncertain etiology. Previously identified rim-enhancing lesions within the LEFT lobe liver are not demonstrated on the provided sonographic images. Correlation with MRI is recommended. 2. Top normal size of the common bile duct measuring 8 mm. 3. Hydropic appearance of the gallbladder without findings to suggest gallbladder wall thickening, pericholecystic fluid. No focus of echogenicity is identified to suggest calculus, however focus of increased density is present within the proximal dependent gallbladder CT examination concerning for 4 mm calculus versus wall calcification. copyright 2011 [employer]- All Rights Reserved Hepatobiliary Scan Nuclear Medicine 03/17/19 00:00 IMPRESSION: NO SCINTIGRAPHIC EVIDENCE OF ACUTE CHOLECYSTITIS. Assessment & Plan - Diagnosis (1) Abdominal pain Qualifiers: Abdominal location: upper abdomen, unspecified Qualified Code(s): R10.10 - Upper abdominal pain, unspecified Is this a current diagnosis for this admission?: Yes (2) Cellulitis of buttock, left Is this a current diagnosis for this admission?: Yes (3) Diabetes mellitus type 2 in obese Is this a current diagnosis for this admission?: Yes (4) UTI (urinary tract infection) Qualifiers: Urinary tract infection type: site unspecified Hematuria presence: with hematuria Qualified Code(s): N39.0 - Urinary tract infection, site not specified Is this a current diagnosis for this admission?: Yes (5) left linda-rectal abscess Is this a current diagnosis for this admission?: Yes - Time Time Spent with patient: 15-24 minutes - Inpatient Certification Medical Necessity: Need for IV Antibiotics - Plan Summary Plan Summary: Start at sitz bath's Continue IV antibiotics for the next 24 to 48 hours. Recheck WBC in a.m.
[2019-03-19] MEDS: HYDRALAZINE HCL INJ/PF 20 MG/1 ML SDV IV PRN (21:39)
[2019-03-19] MEDS: INSULIN GLARGINE,HUM.REC.ANLOG 1,000 UNIT/10 ML VIAL SUBCUT SCH (21:41)
[2019-03-20] MEDS: IPRATROPIUM BROMIDE 0.02% NEB 0.5 MG/2.5 ML AMPUL NEB SCH ×3 (00:30→16:26)
[2019-03-20] MEDS: LEVALBUTEROL HCL NEB 1.25 MG/3 ML AMPUL NEB SCH ×3 (00:30→16:26)
[2019-03-20] MEDS: PIPERACILLIN SODIUM/TAZOBACTAM 3.375 GM in NORMAL SALINE 100 ML IV SCH ×4 (01:29→18:18)
[2019-03-20] MEDS: ONDANSETRON HCL INJ/PF 4 MG/2 ML SDV IV PRN (05:40)
[2019-03-20] MEDS: HEPARIN SOD (PORCINE) 5,000 UNIT/ML 1 ML VIAL SUBCUT SCH ×3 (05:41→21:41)
[2019-03-20] MEDS: NALBUPHINE HCL INJ 10 MG/1 ML AMPULE IV PRN ×2 (05:41→18:21)
[2019-03-20 07:22] LABS: HEMOGLOBIN 11.9 g/dL (12.0-15.5); MEAN CORPUSCULAR HEMOGLOBIN 29.1 pg (27.0-33.4); MEAN CORPUSCULAR VOLUME 88 fl (80-97); PLATELET COUNT 197 10^3/uL (150-450); RED BLOOD COUNT 4.08 10^6/uL (3.72-5.28); RED CELL DISTRIBUTION WIDTH 13.3 % (11.5-14.0); WHITE BLOOD COUNT 6.3 10^3/uL (4.0-10.5)
[2019-03-20 07:37] LABS: ALBUMIN 2.6 g/dL (3.5-5.0); ALKALINE PHOSPHATASE 199 U/L (38-126); ASPARTATE AMINO TRANSFERASE 17 U/L (14-36); BILIRUBIN,DIRECT 0.3 mg/dL (0.0-0.4); BILIRUBIN,TOTAL 0.7 mg/dL (0.2-1.3); TOTAL PROTEIN 4.6 g/dL (6.3-8.2)
[2019-03-20] MEDS: BUDESONIDE NEB 0.5 MG/2 ML AMPUL NEB SCH ×2 (08:11→20:58)
[2019-03-20] MEDS: HYDROCHLOROTHIAZIDE 12.5 MG TABLET PO SCH (08:41)
[2019-03-20] MEDS: METOCLOPRAMIDE HCL 10 MG TABLET PO SCH ×4 (08:43→21:43)
[2019-03-20] MEDS: SUCRALFATE 1 GM TABLET PO SCH ×4 (08:43→21:43)
[2019-03-20] MEDS: INSULIN REG, HUMAN 100 UNIT/ML 3 ML VIAL (PYX) SUBCUT SCH ×4 (08:44→21:42)
[2019-03-20] MEDS: LISINOPRIL 10 MG TABLET PO SCH (08:45)
[2019-03-20] MEDS: DOCUSATE SODIUM 100 MG CAPSULE PO SCH ×2 (11:16→18:13)
[2019-03-20] MEDS: FAMOTIDINE 20 MG TABLET PO SCH ×2 (11:16→21:43)
[2019-03-20] MEDS: CARVEDILOL 6.25 MG TABLET PO SCH ×2 (11:16→18:15)
[2019-03-20] MEDS: HYDRALAZINE HCL INJ/PF 20 MG/1 ML SDV IV PRN (14:33)
--- NOTE | 2019-03-20 15:37 | PDOC PROGRESS REPORT ---
Subjective Progress Note for:: 03/20/19 Subjective:: less pains Reason For Visit: ABDOMINAL PAIN,DIABETED MELLITUS TYPE 2 Physical Exam Vital Signs: Temp Pulse Resp BP Pulse Ox 98.8 F 81 24 H 165/63 H 95 03/20/19 11:09 03/20/19 11:09 03/20/19 11:09 03/20/19 11:09 03/20/19 11:09 Intake & Output 03/19/19 03/20/19 03/21/19 06:59 06:59 06:59 Intake Total 980 1680 480 Output Total 5 Balance 975 1680 480 Weight 134 kg 134.3 kg Exam: Linda anal wound remains clean and dry Results Laboratory Results: 03/20/19 06:20 03/18/19 06:56 03/20/19 03/20/19 06:20 06:20 WBC 6.3 RBC 4.08 Hgb 11.9 L Hct 36.0 MCV 88 MCH 29.1 MCHC 33.0 RDW 13.3 Plt Count 197 Magnesium 1.6 Total Bilirubin 0.7 AST 17 Alkaline Phosphatase 199 H Total Protein 4.6 L Albumin 2.6 L 03/18/19 13:04 Perirectal Gram Stain - Final 03/18/19 13:04 Perirectal Wound Culture - Final Streptococcus Bovis Grp Prevotella Species 03/16/19 03/16/19 13:55 13:55 Creatine Kinase 42 CK-MB (CK-2) 1.04 Troponin I 0.032 Impressions: Abdomen/Pelvis CT 03/16/19 17:12 IMPRESSION: 1. There is mild hepatosplenomegaly. 2. The liver is heterogeneous. There appears to be focal fatty infiltration in the right lobe. There appear to be prominent intrahepatic ducts in the left lobe. Is there any clinical evidence of biliary obstruction? There are several small peripherally enhancing lesions concerning for metastases. Abdomen Ultrasound 03/16/19 19:11 IMPRESSION: 1. Coarsened hepatic echogenicity and intrahepatic, predominantly LEFT lobe biliary dilation of uncertain etiology. Previously identified rim-enhancing lesions within the LEFT lobe liver are not demonstrated on the provided sonographic images. Correlation with MRI is recommended. 2. Top normal size of the common bile duct measuring 8 mm. 3. Hydropic appearance of the gallbladder without findings to suggest gallbladder wall thickening, pericholecystic fluid. No focus of echogenicity is identified to suggest calculus, however focus of increased density is present within the proximal dependent gallbladder CT examination concerning for 4 mm calculus versus wall calcification. copyright 2011 [employer]- All Rights Reserved Hepatobiliary Scan Nuclear Medicine 03/17/19 00:00 IMPRESSION: NO SCINTIGRAPHIC EVIDENCE OF ACUTE CHOLECYSTITIS. Assessment & Plan - Diagnosis (1) Abdominal pain Qualifiers: Abdominal location: upper abdomen, unspecified Qualified Code(s): R10.10 - Upper abdominal pain, unspecified Is this a current diagnosis for this admission?: Yes (2) Cellulitis of buttock, left Is this a current diagnosis for this admission?: Yes (3) Diabetes mellitus type 2 in obese Is this a current diagnosis for this admission?: Yes (4) UTI (urinary tract infection) Qualifiers: Urinary tract infection type: site unspecified Hematuria presence: with hematuria Qualified Code(s): N39.0 - Urinary tract infection, site not specified Is this a current diagnosis for this admission?: Yes (5) left linda-rectal abscess Is this a current diagnosis for this admission?: Yes - Time Time Spent with patient: 15-24 minutes - Plan Summary Plan Summary: Continue IV antibiotics 24-48 hrs She can be followed in the surgical clinic in 2 weeks Will sign off. Call for any questions
--- NOTE | 2019-03-20 16:37 | PDOC PROGRESS REPORT ---
Subjective Progress Note for:: 03/20/19 Subjective:: No adverse events overnight. No new complaints. Vital signs been stable. Eating and drinking without difficulty. No fevers. Reason For Visit: ABDOMINAL PAIN,DIABETED MELLITUS TYPE 2 Physical Exam Vital Signs: Temp Pulse Resp BP Pulse Ox 98.8 F 81 24 H 165/63 H 95 03/20/19 11:09 03/20/19 11:09 03/20/19 11:09 03/20/19 11:09 03/20/19 11:09 Intake & Output 03/19/19 03/20/19 03/21/19 06:59 06:59 06:59 Intake Total 980 1680 480 Output Total 5 Balance 975 1680 480 Weight 134 kg 134.3 kg General appearance: PRESENT: no acute distress, cooperative, disheveled, morbidly obese Respiratory exam: PRESENT: clear to auscultation ashley, symmetrical, unlabored. ABSENT: accessory muscle use, chest wall tenderness, crackles, prolonged expiratory phas, rhonchi, tachypnea, wheezes Cardiovascular exam: PRESENT: RRR, +S1, +S2 Pulses: PRESENT: normal carotid pulses Vascular exam: PRESENT: normal capillary refill GI/Abdominal exam: PRESENT: normal bowel sounds, soft. ABSENT: distended, guarding, rebound, tenderness Extremities exam: ABSENT: clubbing, pedal edema Musculoskeletal exam: PRESENT: normal inspection. ABSENT: deformity Neurological exam: PRESENT: alert, awake, oriented to person, oriented to place, oriented to situation Psychiatric exam: PRESENT: flat affect Skin exam: PRESENT: dry, warm Results Laboratory Results: 03/20/19 06:20 03/18/19 06:56 03/20/19 03/20/19 06:20 06:20 WBC 6.3 RBC 4.08 Hgb 11.9 L Hct 36.0 MCV 88 MCH 29.1 MCHC 33.0 RDW 13.3 Plt Count 197 Magnesium 1.6 Total Bilirubin 0.7 AST 17 Alkaline Phosphatase 199 H Total Protein 4.6 L Albumin 2.6 L 03/18/19 13:04 Perirectal Gram Stain - Final 03/18/19 13:04 Perirectal Wound Culture - Final Streptococcus Bovis Grp Prevotella Species 03/16/19 03/16/19 13:55 13:55 Creatine Kinase 42 CK-MB (CK-2) 1.04 Troponin I 0.032 Impressions: Abdomen/Pelvis CT 03/16/19 17:12 IMPRESSION: 1. There is mild hepatosplenomegaly. 2. The liver is heterogeneous. There appears to be focal fatty infiltration in the right lobe. There appear to be prominent intrahepatic ducts in the left lobe. Is there any clinical evidence of biliary obstruction? There are several small peripherally enhancing lesions concerning for metastases. Abdomen Ultrasound 03/16/19 19:11 IMPRESSION: 1. Coarsened hepatic echogenicity and intrahepatic, predominantly LEFT lobe biliary dilation of uncertain etiology. Previously identified rim-enhancing lesions within the LEFT lobe liver are not demonstrated on the provided sonographic images. Correlation with MRI is recommended. 2. Top normal size of the common bile duct measuring 8 mm. 3. Hydropic appearance of the gallbladder without findings to suggest gallbladder wall thickening, pericholecystic fluid. No focus of echogenicity is identified to suggest calculus, however focus of increased density is present within the proximal dependent gallbladder CT examination concerning for 4 mm calculus versus wall calcification. copyright 2011 [employer]- All Rights Reserved Hepatobiliary Scan Nuclear Medicine 03/17/19 00:00 IMPRESSION: NO SCINTIGRAPHIC EVIDENCE OF ACUTE CHOLECYSTITIS. Assessment and Plan - Diagnosis (1) Abdominal pain Qualifiers: Abdominal location: upper abdomen, unspecified Qualified Code(s): R10.10 - Upper abdominal pain, unspecified Is this a current diagnosis for this admission?: Yes Plan: Resolved, the cause is undetermined. She had gallbladder hydrops but there was no sign of inflammation to suggest cholecystitis and her HIDA scan was negative so whatever was causing her abdominal pain is now resolved. (2) Cellulitis of buttock, left Is this a current diagnosis for this admission?: Yes Plan: Currently on Bactrim. Status post I&D of perianal abscess. She seems to be responding, so even though did not test Bactrim out on her abscess culture, I w ill likely continue it. (3) Cholelithiasis Qualifiers: Cholelithiasis location: gallbladder Cholecystitis presence: without noah cystitis Biliary obstruction: without biliary obstruction Qualified Code(s): K80.20 - Calculus of gallbladder without cholecystitis without obstruction Is this a current diagnosis for this admission?: Yes Plan: Nonobstructive, no signs of cholecystitis (4) Diabetes mellitus type 2 in obese Is this a current diagnosis for this admission?: Yes Plan: We got her a diabetic diet and a sliding scale, blood sugars have improved (5) Essential hypertension Is this a current diagnosis for this admission?: Yes Plan: We will continue her home medications when she is allowed to take p.o. (6) Hydrops of gallbladder Is this a current diagnosis for this admission?: Yes Plan: Nothing to do per surgery - Plan Summary Summary: We will plan to discharge home tomorrow - Time Time Spent with patient: 15-24 minutes
[2019-03-20] MEDS: INSULIN GLARGINE,HUM.REC.ANLOG 1,000 UNIT/10 ML VIAL SUBCUT SCH (21:42)
[2019-03-20] MEDS: ACETAMINOPHEN 325 MG TABLET PO PRN (22:01)
[2019-03-21] MEDS: HYDRALAZINE HCL INJ/PF 20 MG/1 ML SDV IV PRN ×2 (00:10→07:28)
[2019-03-21] MEDS: PIPERACILLIN SODIUM/TAZOBACTAM 3.375 GM in NORMAL SALINE 100 ML IV SCH ×5 (00:11→23:30)
[2019-03-21] MEDS: IPRATROPIUM BROMIDE 0.02% NEB 0.5 MG/2.5 ML AMPUL NEB SCH ×3 (00:23→16:26)
[2019-03-21] MEDS: LEVALBUTEROL HCL NEB 1.25 MG/3 ML AMPUL NEB SCH ×3 (00:23→16:26)
[2019-03-21] MEDS: HEPARIN SOD (PORCINE) 5,000 UNIT/ML 1 ML VIAL SUBCUT SCH ×3 (05:44→21:43)
[2019-03-21] MEDS: HYDROCHLOROTHIAZIDE 12.5 MG TABLET PO SCH (07:31)
[2019-03-21] MEDS: INSULIN REG, HUMAN 100 UNIT/ML 3 ML VIAL (PYX) SUBCUT SCH ×4 (07:32→21:43)
[2019-03-21] MEDS: LISINOPRIL 10 MG TABLET PO SCH (07:33)
[2019-03-21] MEDS: SUCRALFATE 1 GM TABLET PO SCH ×4 (07:34→21:44)
[2019-03-21] MEDS: METOCLOPRAMIDE HCL 10 MG TABLET PO SCH ×4 (07:34→21:44)
[2019-03-21] MEDS: ACETAMINOPHEN 325 MG TABLET PO PRN (07:37)
[2019-03-21] MEDS: BUDESONIDE NEB 0.5 MG/2 ML AMPUL NEB SCH ×2 (08:37→20:20)
[2019-03-21] MEDS: CHLORTHALIDONE 25 MG TABLET PO SCH (11:20)
[2019-03-21] MEDS: FAMOTIDINE 20 MG TABLET PO SCH ×2 (11:20→21:44)
[2019-03-21] MEDS: SPIRONOLACTONE 25 MG TABLET PO SCH (11:20)
[2019-03-21] MEDS: CARVEDILOL 12.5 MG TABLET PO SCH ×2 (11:21→21:44)
[2019-03-21] MEDS: DOCUSATE SODIUM 100 MG CAPSULE PO SCH ×2 (11:21→18:13)
[2019-03-21] MEDS: LOSARTAN POTASSIUM 50 MG TABLET PO SCH (11:28)
[2019-03-21] MEDS: NALBUPHINE HCL INJ 10 MG/1 ML AMPULE IV PRN (12:45)
--- NOTE | 2019-03-21 16:15 | PDOC PROGRESS REPORT ---
Subjective Progress Note for:: 03/21/19 Subjective:: No adverse events overnight. No new complaints. Vital signs been stable. Eating and drinking without difficulty. No fevers. She changed her mind about going home and decided she wants to go to [facility] [facility]. Reason For Visit: ABDOMINAL PAIN,DIABETED MELLITUS TYPE 2 Physical Exam Vital Signs: Temp Pulse Resp BP Pulse Ox 98.2 F 88 16 161/51 H 94 03/21/19 11:16 03/21/19 11:16 03/21/19 11:16 03/21/19 11:16 03/21/19 11:16 Intake & Output 03/20/19 03/21/19 03/22/19 06:59 06:59 06:59 Intake Total 0 1919 450 Output Total 1 Balance 1679 191 450 Weight 134.3 kg 134.8 kg General appearance: PRESENT: no acute distress, cooperative, disheveled, morbidly obese Respiratory exam: PRESENT: clear to auscultation ashley, symmetrical, unlabored. ABSENT: accessory muscle use, chest wall tenderness, crackles, prolonged expiratory phas, rhonchi, tachypnea, wheezes Cardiovascular exam: PRESENT: RRR, +S1, +S2 Pulses: PRESENT: normal carotid pulses Vascular exam: PRESENT: normal capillary refill GI/Abdominal exam: PRESENT: normal bowel sounds, soft. ABSENT: distended, guarding, rebound, tenderness Extremities exam: ABSENT: clubbing, pedal edema Musculoskeletal exam: PRESENT: normal inspection. ABSENT: deformity Neurological exam: PRESENT: alert, awake, oriented to person, oriented to place, oriented to situation Psychiatric exam: PRESENT: flat affect Skin exam: PRESENT: dry, warm Results Laboratory Results: 03/20/19 06:20 03/18/19 06:56 03/18/19 13:04 Perirectal Gram Stain - Final 03/18/19 13:04 Perirectal Wound Culture - Final Streptococcus Bovis Grp Prevotella Species 03/16/19 03/16/19 13:55 13:55 Creatine Kinase 42 CK-MB (CK-2) 1.04 Troponin I 0.032 Impressions: Abdomen/Pelvis CT 03/16/19 17:12 IMPRESSION: 1. There is mild hepatosplenomegaly. 2. The liver is heterogeneous. There appears to be focal fatty infiltration in the right lobe. There appear to be prominent intrahepatic ducts in the left lobe. Is there any clinical evidence of biliary obstruction? There are several small peripherally enhancing lesions concerning for metastases. Abdomen Ultrasound 03/16/19 19:11 IMPRESSION: 1. Coarsened hepatic echogenicity and intrahepatic, predominantly LEFT lobe biliary dilation of uncertain etiology. Previously identified rim-enhancing lesions within the LEFT lobe liver are not demonstrated on the provided sonographic images. Correlation with MRI is recommended. 2. Top normal size of the common bile duct measuring 8 mm. 3. Hydropic appearance of the gallbladder without findings to suggest gallbladder wall thickening, pericholecystic fluid. No focus of echogenicity is identified to suggest calculus, however focus of increased density is present within the proximal dependent gallbladder CT examination concerning for 4 mm calculus versus wall calcification. copyright 2011 [employer]- All Rights Reserved Hepatobiliary Scan Nuclear Medicine 03/17/19 00:00 IMPRESSION: NO SCINTIGRAPHIC EVIDENCE OF ACUTE CHOLECYSTITIS. Assessment and Plan - Diagnosis (1) Abdominal pain Qualifiers: Abdominal location: upper abdomen, unspecified Qualified Code(s): R10.10 - Upper abdominal pain, unspecified Is this a current diagnosis for this admission?: Yes Plan: Resolved, the cause is undetermined. She had gallbladder hydrops but there was no sign of inflammation to suggest cholecystitis and her HIDA scan was negative so whatever was causing her abdominal pain is now resolved. (2) Cellulitis of buttock, left Is this a current diagnosis for this admission?: Yes Plan: Currently on Bactrim. Status post I&D of perianal abscess. She seems to be responding, so even though did not test Bactrim out on her abscess culture, I will likely continue it as this is the recommended empiric first-line therapy. (3) Cholelithiasis Qualifiers: Cholelithiasis location: gallbladder Cholecystitis presence: without cholecystitis Biliary obstruction: without biliary obstruction Qualified Code(s): K80.20 - Calculus of gallbladder without cholecystitis without obstruction Is this a current diagnosis for this admission?: Yes Plan: Nonobstructive, no signs of cholecystitis (4) Diabetes mellitus type 2 in obese Is this a current diagnosis for this admission?: Yes Plan: We got her a diabetic diet and a sliding scale, blood sugars have improved (5) Essential hypertension Is this a current diagnosis for this admission?: Yes Plan: We will continue her home medications when she is allowed to take p.o. (6) Hydrops of gallbladder Is this a current diagnosis for this admission?: Yes Plan: Nothing to do per surgery - Plan Summary Summary: We will plan to discharge home tomorrow - Time Time Spent with patient: 15-24 minutes
[2019-03-21] MEDS: INSULIN GLARGINE,HUM.REC.ANLOG 1,000 UNIT/10 ML VIAL SUBCUT SCH (21:43)
[2019-03-21] MEDS: ATORVASTATIN CALCIUM 20 MG TABLET PO SCH (21:44)
[2019-03-22] MEDS: IPRATROPIUM BROMIDE 0.02% NEB 0.5 MG/2.5 ML AMPUL NEB SCH ×3 (00:07→17:47)
[2019-03-22] MEDS: LEVALBUTEROL HCL NEB 1.25 MG/3 ML AMPUL NEB SCH ×3 (00:07→17:47)
[2019-03-22] MEDS: PIPERACILLIN SODIUM/TAZOBACTAM 3.375 GM in NORMAL SALINE 100 ML IV SCH ×2 (05:05→11:24)
[2019-03-22] MEDS: HEPARIN SOD (PORCINE) 5,000 UNIT/ML 1 ML VIAL SUBCUT SCH ×3 (05:05→21:19)
[2019-03-22] MEDS: INSULIN REG, HUMAN 100 UNIT/ML 3 ML VIAL (PYX) SUBCUT SCH ×4 (08:03→21:18)
[2019-03-22] MEDS: METOCLOPRAMIDE HCL 10 MG TABLET PO SCH ×4 (08:05→21:16)
[2019-03-22] MEDS: SUCRALFATE 1 GM TABLET PO SCH ×4 (08:05→21:16)
[2019-03-22] MEDS: HYDRALAZINE HCL INJ/PF 20 MG/1 ML SDV IV PRN ×2 (08:10→17:05)
[2019-03-22] MEDS: BUDESONIDE NEB 0.5 MG/2 ML AMPUL NEB SCH ×2 (08:32→20:19)
[2019-03-22] MEDS: DOCUSATE SODIUM 100 MG CAPSULE PO SCH ×2 (11:15→17:01)
[2019-03-22] MEDS: SPIRONOLACTONE 25 MG TABLET PO SCH (11:19)
[2019-03-22] MEDS: CARVEDILOL 12.5 MG TABLET PO SCH ×2 (11:20→21:16)
[2019-03-22] MEDS: LOSARTAN POTASSIUM 50 MG TABLET PO SCH (11:20)
[2019-03-22] MEDS: FAMOTIDINE 20 MG TABLET PO SCH ×2 (11:20→21:17)
[2019-03-22] MEDS: CHLORTHALIDONE 25 MG TABLET PO SCH (11:21)
--- NOTE | 2019-03-22 15:01 | PDOC PROGRESS REPORT ---
Subjective Progress Note for:: 03/22/19 Subjective:: No adverse events overnight. No new complaints. Vital signs been stable. Eating and drinking without difficulty. No fevers. Awaiting word from [email or web address] about a bed. Reason For Visit: ABDOMINAL PAIN,DIABETED MELLITUS TYPE 2 Physical Exam Vital Signs: Temp Pulse Resp BP Pulse Ox 98.7 F 82 18 170/50 H 92 03/22/19 12:57 03/22/19 12:57 03/22/19 08:36 03/22/19 12:57 03/22/19 12:57 Intake & Output 03/21/19 03/22/19 03/23/19 06:59 06:59 06:59 Intake Total 1919 1789 100 Output Total 1 Balance 1918 1789 100 Weight 134.8 kg 135.8 kg General appearance: PRESENT: no acute distress, cooperative, disheveled, morbidly obese Respiratory exam: PRESENT: clear to auscultation ashley, symmetrical, unlabored. ABSENT: accessory muscle use, chest wall tenderness, crackles, prolonged expir atory phas, rhonchi, tachypnea, wheezes Cardiovascular exam: PRESENT: RRR, +S1, +S2 Pulses: PRESENT: normal carotid pulses Vascular exam: PRESENT: normal capillary refill GI/Abdominal exam: PRESENT: normal bowel sounds, soft. ABSENT: distended, guarding, rebound, tenderness Extremities exam: ABSENT: clubbing, pedal edema Musculoskeletal exam: PRESENT: normal inspection. ABSENT: deformity Neurological exam: PRESENT: alert, awake, oriented to person, oriented to place, oriented to situation Psychiatric exam: PRESENT: flat affect Skin exam: PRESENT: dry, warm Results Laboratory Results: 03/20/19 06:20 03/18/19 06:56 03/17/19 02:18 Blood Blood Culture - Final NO GROWTH IN 5 DAYS 03/17/19 00:00 Blood Blood Culture - Final NO GROWTH IN 5 DAYS 03/16/19 03/16/19 13:55 13:55 Creatine Kinase 42 CK-MB (CK-2) 1.04 Troponin I 0.032 Impressions: Abdomen/Pelvis CT 03/16/19 17:12 IMPRESSION: 1. There is mild hepatosplenomegaly. 2. The liver is heterogeneous. There appears to be focal fatty infiltration in the right lobe. There appear to be prominent intrahepatic ducts in the left lobe. Is there any clinical evidence of biliary obstruction? There are several small peripherally enhancing lesions concerning for metastases. Abdomen Ultrasound 03/16/19 19:11 IMPRESSION: 1. Coarsened hepatic echogenicity and intrahepatic, predominantly LEFT lobe biliary dilation of uncertain etiology. Previously identified rim-enhancing lesions within the LEFT lobe liver are not demonstrated on the provided sonographic images. Correlation with MRI is recommended. 2. Top normal size of the common bile duct measuring 8 mm. 3. Hydropic appearance of the gallbladder without findings to suggest gallbladder wall thickening, pericholecystic fluid. No focus of echogenicity is identified to suggest calculus, however focus of increased density is present within the proximal dependent gallbladder CT examination concerning for 4 mm calculus versus wall calcification. copyright 2011 [employer]- All Rights Reserved Hepatobiliary Scan Nuclear Medicine 03/17/19 00:00 IMPRESSION: NO SCINTIGRAPHIC EVIDENCE OF ACUTE CHOLECYSTITIS. Assessment and Plan - Diagnosis (1) Abdominal pain Qualifiers: Abdominal location: upper abdomen, unspecified Qualified Code(s): R10.10 - Upper abdominal pain, unspecified Is this a current diagnosis for this admission?: Yes Plan: Resolved, the cause is undetermined. She had gallbladder hydrops but there was no sign of inflammation to suggest cholecystitis and her HIDA scan was negative so whatever was causing her abdominal pain is now resolved. (2) Cellulitis of buttock, left Is this a current diagnosis for this admission?: Yes Plan: Currently on Zosyn. Status post I&D of perianal abscess. We will switch her to an oral antibiotic. (3) Cholelithiasis Qualifiers: Cholelithiasis location: gallbladder Cholecystitis presence: without cholecystitis Biliary obstruction: without biliary obstruction Qualified Code(s): K80.20 - Calculus of gallbladder without cholecystitis without obstruction Is this a current diagnosis for this admission?: Yes Plan: Nonobstructive, no signs of cholecystitis (4) Diabetes mellitus type 2 in obese Is this a current diagnosis for this admission?: Yes Plan: We got her a diabetic diet and a sliding scale, blood sugars have improved (5) Essential hypertension Is this a current diagnosis for this admission?: Yes Plan: We will continue her home medications when she is allowed to take p.o. (6) Hydrops of gallbladder Is this a current diagnosis for this admission?: Yes Plan: Nothing to do per surgery - Plan Summary Summary: We will plan to discharge home tomorrow
[2019-03-22] MEDS: NALBUPHINE HCL INJ 10 MG/1 ML AMPULE IV PRN (15:40)
[2019-03-22] MEDS: LACTOBACILLUS ACIDOPHILUS 250 MG TAB PO SCH (17:03)
[2019-03-22] MEDS: ATORVASTATIN CALCIUM 20 MG TABLET PO SCH (21:16)
[2019-03-22] MEDS: AMOXICILLIN TRIHYDRATE 500 MG CAPSULE PO SCH (21:16)
[2019-03-22] MEDS: INSULIN GLARGINE,HUM.REC.ANLOG 1,000 UNIT/10 ML VIAL SUBCUT SCH (21:18)
[2019-03-22] MEDS: ONDANSETRON HCL INJ/PF 4 MG/2 ML SDV IV PRN (21:19)
[2019-03-23] MEDS: LEVALBUTEROL HCL NEB 1.25 MG/3 ML AMPUL NEB SCH ×3 (00:23→16:02)
[2019-03-23] MEDS: IPRATROPIUM BROMIDE 0.02% NEB 0.5 MG/2.5 ML AMPUL NEB SCH ×3 (00:23→16:03)
[2019-03-23] MEDS: HEPARIN SOD (PORCINE) 5,000 UNIT/ML 1 ML VIAL SUBCUT SCH ×2 (05:15→14:01)
[2019-03-23] MEDS: AMOXICILLIN TRIHYDRATE 500 MG CAPSULE PO SCH ×2 (05:15→14:00)
[2019-03-23] MEDS: HYDRALAZINE HCL INJ/PF 20 MG/1 ML SDV IV PRN ×3 (07:44→19:43)
[2019-03-23] MEDS: INSULIN REG, HUMAN 100 UNIT/ML 3 ML VIAL (PYX) SUBCUT SCH ×3 (07:46→17:21)
[2019-03-23] MEDS: SUCRALFATE 1 GM TABLET PO SCH ×3 (07:47→17:21)
[2019-03-23] MEDS: METOCLOPRAMIDE HCL 10 MG TABLET PO SCH ×3 (07:47→17:21)
[2019-03-23] MEDS: BUDESONIDE NEB 0.5 MG/2 ML AMPUL NEB SCH ×2 (07:56→19:42)
[2019-03-23] MEDS: LACTOBACILLUS ACIDOPHILUS 250 MG TAB PO SCH ×2 (09:22→17:21)
[2019-03-23] MEDS: SPIRONOLACTONE 25 MG TABLET PO SCH (09:23)
[2019-03-23] MEDS: LOSARTAN POTASSIUM 50 MG TABLET PO SCH (09:23)
[2019-03-23] MEDS: CARVEDILOL 12.5 MG TABLET PO SCH (09:23)
[2019-03-23] MEDS: FAMOTIDINE 20 MG TABLET PO SCH (09:25)
[2019-03-23] MEDS: DOCUSATE SODIUM 100 MG CAPSULE PO SCH ×2 (10:05→17:15)
[2019-03-23] MEDS: CHLORTHALIDONE 25 MG TABLET PO SCH ×2 (10:11→10:19)
--- NOTE | 2019-03-23 16:59 | PDOC PROGRESS REPORT ---
Subjective Progress Note for:: 03/23/19 Subjective:: No adverse events overnight. At one point today she wanted to leave AGAINST MEDICAL ADVICE and wanted to take out her IV because we were not giving her the exact same thing she was taking at home. She was primarily referencing her blood pressure medicine. She says she was taking things here that she was not taking at home and she did not understand it because she was not taking what she had at home and taking it exact same time she took it at home. I told her that she was on more stuff for her blood pressure here because her blood pressure was very high when she came in. It is almost as if that did not occur to her. After I briefly explained the situation to her she relented and agreed to stay. Reason For Visit: ABDOMINAL PAIN,DIABETED MELLITUS TYPE 2 Physical Exam Vital Signs: Temp Pulse Resp BP Pulse Ox 98.3 F 88 16 183/72 H 94 03/23/19 10:49 03/23/19 16:03 03/23/19 16:03 03/23/19 14:08 03/23/19 16:03 Intake & Output 03/22/19 03/23/19 03/24/19 06:59 06:59 06:59 Intake Total 1790 1337 520 Balance 1790 1337 520 Weight 135.8 kg 134.5 kg 134.5 kg General appearance: PRESENT: no acute distress, cooperative, disheveled, morbidly obese Respiratory exam: PRESENT: clear to auscultation ashley, symmetrical, unlabored. ABSENT: accessory muscle use, chest wall tenderness, crackles, prolonged expiratory phas, rhonchi, tachypnea, wheezes Cardiovascular exam: PRESENT: RRR, +S1, +S2 Pulses: PRESENT: normal carotid pulses Vascular exam: PRESENT: normal capillary refill GI/Abdominal exam: PRESENT: normal bowel sounds, soft. ABSENT: distended, guarding, rebound, tenderness Extremities exam: ABSENT: clubbing, pedal edema Musculoskeletal exam: PRESENT: normal inspection. ABSENT: deformity Neurological exam: PRESENT: alert, awake, oriented to person, oriented to place, oriented to situation Psychiatric exam: PRESENT: flat affect Skin exam: PRESENT: dry, warm Results Laboratory Results: 03/20/19 06:20 03/18/19 06:56 03/16/19 03/16/19 13:55 13:55 Creatine Kinase 42 CK-MB (CK-2) 1.04 Troponin I 0.032 Impressions: Abdomen/Pelvis CT 03/16/19 17:12 IMPRESSION: 1. There is mild hepatosplenomegaly. 2. The liver is heterogeneous. There appears to be focal fatty infiltration in the right lobe. There appear to be prominent intrahepatic ducts in the left lobe. Is there any clinical evidence of biliary obstruction? There are several small peripherally enhancing lesions concerning for metastases. Abdomen Ultrasound 03/16/19 19:11 IMPRESSION: 1. Coarsened hepatic echogenicity and intrahepatic, predominantly LEFT lobe biliary dilation of uncertain etiology. Previously identified rim-enhancing lesions within the LEFT lobe liver are not demonstrated on the provided sonographic images. Correlation with MRI is recommended. 2. Top normal size of the common bile duct measuring 8 mm. 3. Hydropic appearance of the gallbladder without findings to suggest gallbladder wall thickening, pericholecystic fluid. No focus of echogenicity is identified to suggest calculus, however focus of increased density is present within the proximal dependent gallbladder CT examination concerning for 4 mm calculus versus wall calcification. copyright 2011 [employer]- All Rights Reserved Hepatobiliary Scan Nuclear Medicine 03/17/19 00:00 IMPRESSION: NO SCINTIGRAPHIC EVIDENCE OF ACUTE CHOLECYSTITIS. Assessment and Plan - Diagnosis (1) Abdominal pain Qualifiers: Abdominal location: upper abdomen, unspecified Qualified Code(s): R10.10 - Upper abdominal pain, unspecified Is this a current diagnosis for this admission?: Yes Plan: Resolved, the cause is undetermined. She had gallbladder hydrops but there was no sign of inflammation to suggest cholecystitis and her HIDA scan was negative so whatever was causing her abdominal pain is now resolved. (2) Cellulitis of buttock, left Is this a current diagnosis for this admission?: Yes Plan: Status post I&D of perianal abscess. We we have switched her over to amoxicillin, which she will take for another week. We have also started her on a probiotic. (3) Cholelithiasis Qualifiers: Cholelithiasis location: gallbladder Cholecystitis presence: without cholecystitis Biliary obstruction: without biliary obstruction Qualified Code(s): K80.20 - Calculus of gallbladder without cholecystitis without obstruction Is this a current diagnosis for this admission?: Yes Plan: Nonobstructive, no signs of cholecystitis (4) Diabetes mellitus type 2 in obese Is this a current diagnosis for this admission?: Yes Plan: We got her a diabetic diet and a sliding scale, blood sugars have improved (5) Essential hypertension Is this a current diagnosis for this admission?: Yes Plan: Her pressures are up today because she was not taken her blood pressure medication and was refusing it. She now seems to understand why we have her on the medicine we have, and she is agreeing to take her medication. (6) Hydrops of gallbladder Is this a current diagnosis for this admission?: Yes Plan: Nothing to do per surgery - Plan Summary Summary: We will plan to discharge to [facility] when a bed becomes available - Time Time Spent with patient: 15-24 minutes
[2019-03-23 20:48] LABS: ABSOLUTE BASOPHILS # (AUTO) 0.1 10^3/uL (0.0-0.2); ABSOLUTE EOSINOPHILS # (AUTO) 0.2 10^3/uL (0.0-0.6); ABSOLUTE LYMPHOCYTES (AUTO) 1.9 10^3/uL (0.5-4.7); ABSOLUTE MONOCYTES (AUTO) 0.8 10^3/uL (0.1-1.4); ABSOLUTE NEUT (AUTO) 5.8 10^3/uL (1.7-8.2); BASOPHILS % (AUTO) 0.7 % (0-2); EOSINOPHILS % (AUTO) 1.8 % (0-6); HEMATOCRIT 40.1 % (36.0-47.0); HEMOGLOBIN 13.3 g/dL (12.0-15.5); LYMPHOCYTES % (AUTO) 21.3 % (13-45); MEAN CORPUSCULAR HEMOGLOBIN 29.2 pg (27.0-33.4); MEAN CORPUSCULAR HGB CONC 33.2 g/dL (32.0-36.0); MEAN CORPUSCULAR VOLUME 88 fl (80-97); MONOCYTES % (AUTO) 9.1 % (3-13); PLATELET COUNT 237 10^3/uL (150-450); RED BLOOD COUNT 4.56 10^6/uL (3.72-5.28); RED CELL DISTRIBUTION WIDTH 13.2 % (11.5-14.0); SEGMENTED NEUTROPHILS % (AUTO) 67.1 % (42-78); TOTAL CELLS COUNTED % (AUTO) 100 %; WHITE BLOOD COUNT 8.7 10^3/uL (4.0-10.5)
[2019-03-23 21:06] LABS: ANION GAP 8 (5-19); BLOOD UREA NITROGEN 18 mg/dL (7-20); CALCIUM 9.5 mg/dL (8.4-10.2); CARBON DIOXIDE 31 mmol/L (22-30); CHLORIDE 99 mmol/L (98-107); GLUCOSE 272 mg/dL (75-110); POTASSIUM 4.2 mmol/L (3.6-5.0)
--- NOTE | 2019-03-23 21:47 | RADIOLOGY REPORT (SQ) ---
EXAM DESCRIPTION: XR ABDOMEN SUPINE AND ERECT WITH CHEST (ABD ACUTE SERIES) COMPLETED DATE/TME: 03/23/2019 00:00 CLINICAL HISTORY: 68 years, Female, ABD PAIN AND FIRMNESS Findings: The heart is mildly enlarged. Aorta is uncoiled. No pneumothorax. No significant pleural effusion. No free intraperitoneal air. Moderate amount of stool in the colon. No significant dilated loops of bowel. IMPRESSION: Constipation suspected.
[2019-03-23] MEDS ORDERED: LACTULOSE SYRUP 20 GM/30 ML UDCUP PO ONE (22:54)
[2019-03-23] MEDS ORDERED: AMLODIPINE BESYLATE 10 MG TABLET PO ONE (22:55)
[2019-03-24] MEDS: ATORVASTATIN CALCIUM 20 MG TABLET PO SCH
[2019-03-24] MEDS: INSULIN REG, HUMAN 100 UNIT/ML 3 ML VIAL (PYX) SUBCUT SCH ×3 (00:01→12:47)
[2019-03-24] MEDS: AMOXICILLIN TRIHYDRATE 500 MG CAPSULE PO SCH ×2 (00:01→05:49)
[2019-03-24] MEDS: INSULIN GLARGINE,HUM.REC.ANLOG 1,000 UNIT/10 ML VIAL SUBCUT SCH (00:02)
[2019-03-24] MEDS: FAMOTIDINE 20 MG TABLET PO SCH ×2 (00:03→09:09)
[2019-03-24] MEDS: ACETAMINOPHEN 325 MG TABLET PO PRN (00:09)
[2019-03-24] MEDS: HEPARIN SOD (PORCINE) 5,000 UNIT/ML 1 ML VIAL SUBCUT SCH ×3 (00:13→14:03)
[2019-03-24] MEDS: LEVALBUTEROL HCL NEB 1.25 MG/3 ML AMPUL NEB SCH ×2 (00:15→08:19)
[2019-03-24] MEDS: IPRATROPIUM BROMIDE 0.02% NEB 0.5 MG/2.5 ML AMPUL NEB SCH ×2 (00:15→08:19)
[2019-03-24] MEDS: SUCRALFATE 1 GM TABLET PO SCH ×3 (00:18→12:51)
[2019-03-24] MEDS: BUDESONIDE NEB 0.5 MG/2 ML AMPUL NEB SCH (08:19)
[2019-03-24] MEDS: LACTOBACILLUS ACIDOPHILUS 250 MG TAB PO SCH (09:08)
[2019-03-24] MEDS: CARVEDILOL 12.5 MG TABLET PO SCH ×2 (09:09)
[2019-03-24] MEDS: DOCUSATE SODIUM 100 MG CAPSULE PO SCH (09:09)
[2019-03-24] MEDS: SPIRONOLACTONE 25 MG TABLET PO SCH (09:09)
[2019-03-24] MEDS: LOSARTAN POTASSIUM 50 MG TABLET PO SCH (09:09)
[2019-03-24] MEDS: METOCLOPRAMIDE HCL 10 MG TABLET PO SCH ×3 (09:10→12:51)
[2019-03-24] MEDS: CHLORTHALIDONE 25 MG TABLET PO SCH (09:10)
[2019-03-24] MEDS: CLONIDINE 0.2 MG/24 HR PATCH.TDWK TD SCH (09:10)
[2019-03-24] MEDS ORDERED: CEFTRIAXONE 1 GM/D5W RTU 1 GM/50 ML RTUPB IV SCH (10:00)
--- NOTE | 2019-03-24 11:05 | PDOC DISCHARGE SUMMARY ---
Impression - Admit/DC Date/PCP Admission Date/Primary Care Provider: 03/16/19 23:07 Discharge Date: 03/24/19 - Discharge Diagnosis (1) Abdominal pain Is this a current diagnosis for this admission?: Yes (2) Hydrops of gallbladder Is this a current diagnosis for this admission?: Yes (3) Cellulitis of buttock, left Is this a current diagnosis for this admission?: Yes (4) Cholelithiasis Is this a current diagnosis for this admission?: Yes (5) Abnormal abdominal CT scan Is this a current diagnosis for this admission?: Yes (6) Diabetes mellitus type 2 in obese Is this a current diagnosis for this admission?: Yes (7) Hyperlipidemia Is this a current diagnosis for this admission?: Yes (8) Essential hypertension Is this a current diagnosis for this admission?: Yes (9) CHANELLE (obstructive sleep apnea) Is this a current diagnosis for this admission?: Yes (11) UTI (urinary tract infection) Is this a current diagnosis for this admission?: Yes (12) Anxiety with depression Is this a current diagnosis for this admission?: Yes - Assessment Summary: We will plan to discharge to [facility] when a bed becomes available 03/24/2019-patient agreed to discharge plan to home with home health including PT and shelter as well as home health aides and social psychologist. - Additional Information Resuscitation Status: Full Code Discharge Diet: Cardiac, Diabetic Discharge Activity: Activity As Tolerated Referrals: [facility] [Provider Group] - 03/26/19 9:30 am () [facility] [Outside] Prescriptions: Clonidine [Catapres-Tts 2 (0.2 mg/24 Hr) Transderm Ptch] 1 each TD Tu@10 28 Days #4 patch.tdwk Carvedilol [Coreg 12.5 mg Tablet] 12.5 mg PO Q12 30 Days #60 tab Glipizide [Glipizide Xl] 10 mg PO DAILY 30 Days #30 tab.er.24 Chlorthalidone [Hygroton 25 mg Tablet] 25 mg PO DAILY 30 Days #30 tab Cephalexin Monohydrate [Keflex 250 mg Capsule] 250 mg PO Q8 5 Days #15 capsule Sertraline HCl 25 mg PO QHS #30 tablet Home Medications: Fluticasone Propionate [Flonase Nasal [place] 50 Mcg/[place] 16 gm] 2 spray NASL DAILY 03/17/19 Losartan Potassium [Cozaar 100 mg Tablet] 100 mg PO DAILY 03/17/19 Meclizine HCl [Antivert 12.5 mg Tablet] 12.5 mg PO Q8HP PRN 03/17/19 Oxycodone HCl/Acetaminophen [Percocet 5-325 mg Tablet] 1 tab PO Q8 03/17/19 Ranitidine HCl [Zantac] 150 mg PO BID 03/17/19 Rosuvastatin Calcium [Crestor 10 mg Tablet] 10 mg PO QHS 03/17/19 Spironolactone [Aldactone 25 mg Tablet] 25 mg PO DAILY 03/17/19 Carvedilol [Coreg 12.5 mg Tablet] 12.5 mg PO Q12 30 Days #60 tab 03/24/19 Cephalexin Monohydrate [Keflex 250 mg Capsule] 250 mg PO Q8 5 Days #15 capsule 03/24/19 Chlorthalidone [Hygroton 25 mg Tablet] 25 mg PO DAILY 30 Days #30 tab 03/24/19 Clonidine [Catapres-Tts 2 (0.2 mg/24 Hr) Transderm Ptch] 1 each TD Tu@10 28 Days #4 patch.tdwk 03/24/19 Docusate Sodium [Colace 100 mg Capsule] 100 mg PO BID capsule 03/24/19 Glipizide [Glipizide Xl] 10 mg PO DAILY 30 Days #30 tab.er.24 03/24/19 Lactobacillus Acidophilus [Bacid 250 mg Tablet] 500 mg PO BID tab 03/24/19 Sertraline HCl 25 mg PO QHS #30 tablet 03/24/19 History of Present Illiness History of Present Illness: DIA RAMIREZ is a 68 year old female who presented to the emergency department with abdominal pain. She had the pain for approximately 1 week. There were episodes of moderate crampy upper abdominal pain and duration was s everal hours. There is no radiation but it is present on both sides. There is nausea without vomiting. She cannot identify any aggravating or ameliorating factors. She also had soreness in the perianal region and this has been present over the last 2 weeks. She also has abdominal discomfort with urination for 3 weeks. Evaluation emergency department showed cholelithiasis with hydrops of the gallbladder. There was fatty infiltration of the liver with small hypodense areas with peripheral enhancement. She also has poorly controlled diabetes mellitus with hyperglycemia. The patient was to be evaluated by surgery but admitted to the hospitalist service. Hospital Course Hospital Course: Abdominal pain-she was found to have likely cholelithiasis without cholecystitis. There was also some fatty infiltration of the liver. This was not deemed to be a surgical issue and conservative therapy was the treatment plan. I did explain that she would benefit from ongoing follow-up and reassessment of her gallbladder/liver under the direction of her primary care provider. She can always be referred back to surgery if necessary. Cellulitis and abscess on the buttock-the patient had this incised and drained. She is on antibiotic therapy. She will continue sitz baths and follow-up with surgery clinic in 2 weeks Diabetes mellitus type 2-the patient is extremely noncompliant with her medications. Some of this is due to cost but some of this is due to anxiety. As I did not want to initiate a whole insulin regimen at discharge I will discharge her on Glucotrol XL and explained to her that she needs to be honest about her financial status with her primary care provider and he may very well utilize older insulin regimens of regular and NPH or possibly 70/30 insulin which will be more affordable than newer long-acting insulins. Metformin gives her diarrhea and so instructed her not to take the metformin. Urinary tract infection with E. coli-after reviewing sensitivities the patient will be discharged on Keflex for an additional 5 days and this will also help cover any residual infection from the abscess. Anxiety with depression-the patient agreed to start a low-dose trial of sertraline. I also encouraged her very strongly to discuss this with her primary care provider and seek the help of a psychologist if not a psychiatrist. Hypertension-evidently the patient has difficult to control hypertension. She never reported adverse reactions to lisinopril or amlodipine. She had been on clonidine in the past. She has been on carvedilol. She will discharge on carvedilol, clonidine, chlorthalidone and Spironolactone. I explained to her that her primary care provider will likely make changes but it is impossible to control her blood pressure if she is noncompliant with her medications. Morbid obesity with a BMI of 47-the morbid obesity contributes to multiple comorbidities including her diabetes, hypertension and sleep apnea just to name a few. She would benefit from an aggressive weight loss dietary regimen. Hyperlipidemia-continue her Crestor Obstructive sleep apnea-it would be best if she obtained a new sleep study and will likely be prescribed CPAP or BiPAP. Compliance is extremely important. Physical Exam Vital Signs: Temp Pulse Resp BP Pulse Ox 98.0 F 72 22 H 158/78 H 99 03/24/19 07:42 03/24/19 08:19 03/24/19 08:19 03/24/19 07:42 03/24/19 08:19 Intake & Output 03/23/19 03/24/19 03/25/19 06:59 06:59 06:59 Intake Total 1337 780 Balance 1337 780 Weight 134.5 kg 142 kg General appearance: PRESENT: no acute distress, cooperative, morbidly obese, well-developed Head exam: PRESENT: atraumatic, normocephalic Ear exam: PRESENT: normal external ear exam. ABSENT: bleeding, drainage Mouth exam: PRESENT: moist, neck supple, tongue midline Respiratory exam: PRESENT: clear to auscultation ashley, symmetrical, unlabored. ABSENT: rales, rhonchi, tachypnea, wheezes Cardiovascular exam: PRESENT: RRR, +S1, +S2 GI/Abdominal exam: PRESENT: distended - Protuberant abdomen, soft. ABSENT: tenderness Rectal exam: PRESENT: deferred Gentrourinary exam: ABSENT: indwelling catheter Extremities exam: PRESENT: pedal edema Musculoskeletal exam: PRESENT: ambulatory. ABSENT: normal inspection - Arms and legs consistent with morbid obese Neurological exam: PRESENT: alert, awake, oriented to person, oriented to place, oriented to time, oriented to situation, CN II-XII grossly intact Psychiatric exam: PRESENT: anxious, depressed, other - Became tearful during discussion of depression. ABSENT: agitated Focused psych exam: ABSENT: delusional, restlessness Skin exam: PRESENT: dry, normal color, warm Results Laboratory Results: WBC 8.7 10^3/uL (4.0-10.5) 03/23/19 20:40 RBC 4.56 10^6/uL (3.72-5.28) 03/23/19 20:40 Hgb 13.3 g/dL (12.0-15.5) 03/23/19 20:40 Hct 40.1 % (36.0-47.0) 03/23/19 20:40 MCV 88 fl (80-97) 03/23/19 20:40 MCH 29.2 pg (27.0-33.4) 03/23/19 20:40 MCHC 33.2 g/dL (32.0-36.0) 03/23/19 20:40 RDW 13.2 % (11.5-14.0) 03/23/19 20:40 Plt Count 237 10^3/uL (150-450) 03/23/19 20:40 Lymph % (Auto) 21.3 % (13-45) 03/23/19 20:40 [place] % (Auto) 9.1 % (3-13) 03/23/19 20:40 Eos % (Auto) 1.8 % (0-6) 03/23/19 20:40 Baso % (Auto) 0.7 % (0-2) 03/23/19 20:40 Absolute Neuts (auto) 5.8 10^3/uL (1.7-8.2) 03/23/19 20:40 Absolute Lymphs (auto) 1.9 10^3/uL (0.5-4.7) 03/23/19 20:40 Absolute Monos (auto) 0.8 10^3/uL (0.1-1.4) 03/23/19 20:40 Absolute Eos (auto) 0.2 10^3/uL (0.0-0.6) 03/23/19 20:40 Absolute Basos (auto) 0.1 10^3/uL (0.0-0.2) 03/23/19 20:40 Total Counted 100 03/18/19 06:56 Seg Neutrophils % 67.1 % (42-78) 03/23/19 20:40 Seg Neuts % (Manual) 68 % (42-78) 03/18/19 06:56 Lymphocytes % (Manual) 16 % (13-45) 03/18/19 06:56 Atypical Lymphs % 2 % (0) 03/18/19 06:56 Monocytes % (Manual) 9 % (3-13) 03/18/19 06:56 Eosinophils % (Manual) 5 % (0-6) 03/18/19 06:56 Basophils % (Manual) 0 % (0-2) 03/18/19 06:56 Abs Neuts (Manual) 5.4 10^3/uL (1.7-8.2) 03/18/19 06:56 Abs Lymphs (Manual) 1.4 10^3/uL (0.5-4.7) 03/18/19 06:56 Abs Monocytes (Manual) 0.7 10^3/uL (0.1-1.4) 03/18/19 06:56 Absolute Eos (Manual) 0.4 10^3/uL (0.0-0.6) 03/18/19 06:56 Abs Basophils (Manual) 0.0 10^3/uL (0.0-0.2) 03/18/19 06:56 Toxic Granulation 1+ 03/18/19 06:56 Platelet Comment ADEQUATE 03/18/19 06:56 Polychromasia SLIGHT 03/18/19 06:56 PT 13.4 SEC (11.4-15.4) 03/16/19 13:55 INR 1.02 03/16/19 13:55 APTT 30.0 SEC (23.5-35.8) 03/16/19 13:55 VBG pH 7.32 (7.30-7.42) 03/16/19 15:32 VBG pCO2 66.3 mmHg (35-63) H* 03/16/19 15:32 VBG HCO3 33.4 mmol/L (20-32) H 03/16/19 15:32 VBG Base Excess 4.6 mmol/L 03/16/19 15:32 Sodium 138.0 mmol/L (137-145) 03/23/19 20:40 Potassium 4.2 mmol/L (3.6-5.0) 03/23/19 20:40 Chloride 99 mmol/L (98-107) 03/23/19 20:40 Carbon Dioxide 31 mmol/L (22-30) H 03/23/19 20:40 Anion Gap 8 (5-19) 03/23/19 20:40 BUN 18 mg/dL (7-20) 03/23/19 20:40 Creatinine 0.74 mg/dL (0.52-1.25) 03/23/19 20:40 Est GFR ( Amer) > 60 (>60) 03/23/19 20:40 Est GFR (MDRD) Non-Af > 60 (>60) 03/23/19 20:40 Glucose 272 mg/dL (75-110) H 03/23/19 20:40 POC Glucose 269 mg/dL (70-110) H 03/24/19 06:23 Hemoglobin A1c % 13.9 % (4.7-6.0) H 03/17/19 05:32 Calcium 9.5 mg/dL (8.4-10.2) 03/23/19 20:40 Magnesium 1.6 mg/dL (1.6-2.3) 03/20/19 06:20 Total Bilirubin 0.7 mg/dL (0.2-1.3) 03/20/19 06:20 Direct Bilirubin 0.3 mg/dL (0.0-0.4) 03/20/19 06:20 Neonat Total Bilirubin Not Reportable 03/20/19 06:20 Neonat Direct Bilirubin Not Reportable 03/20/19 06:20 Neonat Indirect Bili Not Reportable 03/20/19 06:20 AST 17 U/L (14-36) 03/20/19 06:20 ALT 17 U/L (<35) 03/20/19 06:20 Alkaline Phosphatase 199 U/L (38-126) H 03/20/19 06:20 Creatine Kinase 42 U/L (30-135) 03/16/19 13:55 CK-MB (CK-2) 1.04 ng/mL (<4.55) 03/16/19 13:55 Troponin I 0.032 ng/mL 03/16/19 13:55 Total Protein 4.6 g/dL (6.3-8.2) L 03/20/19 06:20 Albumin 2.6 g/dL (3.5-5.0) L 03/20/19 06:20 Triglycerides 123 mg/dL (<150) 03/17/19 05:32 Cholesterol 101.55 mg/dL (0-200) 03/17/19 05:32 LDL Cholesterol Direct 65 mg/dL (<100) 03/17/19 05:32 VLDL Cholesterol 25.0 mg/dL (10-31) 03/17/19 05:32 HDL Cholesterol 26 mg/dL (>40) L 03/17/19 05:32 Lipase 74.4 U/L (23-300) 03/16/19 13:55 TSH 0.47 uIU/mL (0.47-4.68) 03/17/19 05:32 Free T4 1.58 ng/dL (0.78-2.19) 03/17/19 05:32 Free T3 pg/mL 3.17 pg/mL (2.77-5.27) 03/17/19 05:32 Urine Color YELLOW 03/16/19 15:38 Urine Appearance CLEAR 03/16/19 15:38 Urine pH 6.0 (5.0-9.0) 03/16/19 15:38 Ur Specific [place] 1.031 03/16/19 15:38 Urine Protein NEGATIVE mg/dL (NEGATIVE) 03/16/19 15:38 Urine Glucose (UA) >=500 mg/dL (NEGATIVE) H 03/16/19 15:38 Urine Ketones NEGATIVE mg/dL (NEGATIVE) 03/16/19 15:38 Urine Blood SMALL (NEGATIVE) H 03/16/19 15:38 Urine Nitrite (Reflex) POSITIVE (NEGATIVE) H 03/16/19 15:38 Urine Bilirubin NEGATIVE (NEGATIVE) 03/16/19 15:38 Urine Urobilinogen NEGATIVE mg/dL (<2.0) 03/16/19 15:38 Leukocyte Esterase Rfl NEGATIVE (NEGATIVE) 03/16/19 15:38 Urine RBC (Auto) 2 /HPF 03/16/19 15:38 Urine Bacteria (Auto) TRACE /HPF 03/16/19 15:38 Urine WBC (Reflex) 1 /HPF 03/16/19 15:38 Urine Mucus (Auto) RARE /LPF 03/16/19 15:38 Urine Ascorbic Acid NEGATIVE (NEGATIVE) 03/16/19 15:38 Urine Opiates Screen NEGATIVE 03/16/19 15:38 Urine Methadone Screen NEGATIVE 03/16/19 15:38 Ur Barbiturates Screen NEGATIVE 03/16/19 15:38 Ur Phencyclidine Scrn NEGATIVE 03/16/19 15:38 Ur Amphetamines Screen NEGATIVE 03/16/19 15:38 U Benzodiazepines Scrn NEGATIVE 03/16/19 15:38 Urine Cocaine Screen NEGATIVE 03/16/19 15:38 U Marijuana (THC) Screen NEGATIVE 03/16/19 15:38 03/16/19 13:55 CK-MB (CK-2) 1.04 Troponin I 0.032 Impressions: Abdomen/Pelvis CT 03/16/19 17:12 IMPRESSION: 1. There is mild hepatosplenomegaly. 2. The liver is heterogeneous. There appears to be focal fatty infiltration in the right lobe. There appear to be prominent intrahepatic ducts in the left lobe. Is there any clinical evidence of biliary obstruction? There are several small peripherally enhancing lesions concerning for metastases. Abdomen Ultrasound 03/16/19 19:11 IMPRESSION: 1. Coarsened hepatic echogenicity and intrahepatic, predominantly LEFT lobe biliary dilation of uncertain etiology. Previously identified rim-enhancing lesions within the LEFT lobe liver are not demonstrated on the provided sonographic images. Correlation with MRI is recommended. 2. Top normal size of the common bile duct measuring 8 mm. 3. Hydropic appearance of the gallbladder without findings to suggest gallbladder wall thickening, pericholecystic fluid. No focus of echogenicity is identified to suggest calculus, however focus of increased density is present within the proximal dependent gallbladder CT examination concerning for 4 mm calculus versus wall calcification. copyright 2010 [employer]- All Rights Reserved Hepatobiliary Scan Nuclear Medicine 03/17/19 00:00 IMPRESSION: NO SCINTIGRAPHIC EVIDENCE OF ACUTE CHOLECYSTITIS. Acute Abdomen Series 03/23/19 00:00 IMPRESSION: Constipation suspected. Plan Health Concerns: Multiple risk factors with underlying comorbidities for decreased life expectancy including diabetes, hypertension, hyperlipidemia, fatty liver and cholelithiasis Plan of Treatment: Establish new treatment plan for her diabetes utilizing affordable medications. This will likely include older type insulins and oral medications metformin as this gives her diarrhea. She also is not likely to be able to afford many of the newer medications and I do not believe she is able to inject herself unless it is with an insulin pen of some type She needs to establish hypertension regimen that is tolerable and that she will comply with. Eventually if she is compliant with her medications she will be able to achieve good blood pressure control. She has agreed to a trial of sertraline for anxiety/depression. We had a long discussion about utilization of medications and psychologists prior to seeing a psychiatrist. She will discuss this further with her primary care provider. Because of her weakness I have ordered home health with Home PT. In addition I have requested home health aides and a social psychologist. For better medication compliance have suggested utilizing a pillbox. I did send her prescriptions to [facility] and when she is on a consistent regimen they can infect blister pack all of her medications. cystitis with E. coli-the organism was sensitive to cephalosporins and not penicillins. Therefore I have placed the patient on Keflex for 5 days Goals: Formulate treatment regimen that the patient will be compliant with this includes referral to specialists Time Spent: Greater than 30 Minutes Stroke Is this a Stroke Patient?: No Acute Heart Failure - Is this a Heart Failure Patient?: No
[2019-03-24 14:59] VITALS: BP 160/50
== END 2019-03-24 16:16 | disposition home health service (06) | DRG 357 ==
LOC: ER 13:08 → EH 23:07 → 4S 03-17 01:50
PROVIDERS: ADMIT Emergency Medicine; ATTEND Emergency Medicine
PROC: 0JB90ZZ Excision of Buttock Subcutaneous Tissue and Fascia, Open Approach (ICD-10-PCS; principal; 2019-03-18 12:15)
DX: K61.1 Rectal abscess (principal); K82.1 Hydrops of gallbladder; Z68.42 Body mass index [BMI] 45.0-49.9, adult; L03.317 Cellulitis of buttock; N39.0 Urinary tract infection, site not specified; K80.20 Calculus of gallbladder without cholecystitis without obstruction; E11.65 Type 2 diabetes mellitus with hyperglycemia; E78.5 Hyperlipidemia, unspecified; I10 Essential (primary) hypertension; K76.0 Fatty (change of) liver, not elsewhere classified; B96.20 Unspecified Escherichia coli [E. coli] as the cause of diseases classified elsewhere; T38.3X6A Underdosing of insulin and oral hypoglycemic [antidiabetic] drugs, initial encounter; Z91.120 Patient's intentional underdosing of medication regimen due to financial hardship; E66.9 Obesity, unspecified; F41.8 Other specified anxiety disorders; G47.33 Obstructive sleep apnea (adult) (pediatric); K21.9 Gastro-esophageal reflux disease without esophagitis; Z59.7 Insufficient social insurance and welfare support; Z90.49 Acquired absence of other specified parts of digestive tract; Z88.2 Allergy status to sulfonamides; Z88.6 Allergy status to analgesic agent; Z82.49 Family history of ischemic heart disease and other diseases of the circulatory system; Z83.3 Family history of diabetes mellitus; Z79.899 Other long term (current) drug therapy; Z87.891 Personal history of nicotine dependence
CPT/HCPCS: 00902; 36415; 74022; 74177; 76705; 78226; 80048; 80053; 80061; 80076; 80307; 81001; 82550; 82553; 82803; 82962; 83036; 83690; 83735; 84439; 84443; 84481; 84484; 85025; 85027; 85610; 85730; 87040; 87070; 87075; 87077; 87086; 87088; 87186; 87205; 93005; 93010; 94640; 94660; 96361; 96374; 99285; A9537; J0360; J0696; J1170; J1644; J1815; J2250; J2300; J2405; J2543; J2704; J3010; J3370; J3490; J7030; J7050; J7060; Q9969